=== PATIENT | male | born 1960 | race Caucasian/White ===

== ENCOUNTER 2019-11-11 08:21 | Inpatient (IN) | payer BC, SELFPAY ==
[2019-11-11] VITALS (11 sets, daily range): BP systolic 119–158; BP diastolic 81–122; PULSE 68–84; RESP 16–30; TEMP 36.4–36.9; O2SAT 93–98; BMI 21.9
--- NOTE | 2019-11-11 08:27 | XR_ITS ---
WS: [id number] CHEST XRAY TECHNIQUE: Portable chest. CLINICAL INFORMATION: dyspnea/cough COMPARISON: None. FINDINGS: Heart: Cardiomegaly. Mild pulmonary vascular congestion with interstitial edema. No significant pleur al fluid.. Lungs: No acute pulmonary infiltrates. No focal pneumonia. Pulmonary vascular congestion. Bones: Normal visualized bony structures. XR/XR chest 1V portable [id number] IMPRESSION: 1. Cardiomegaly with mild pulmonary vascular congestion and interstitial edema . 2. Correlation for CHF. 3. No focal pneumonia.
--- NOTE | 2019-11-11 08:27 | ECG_ITS ---
Measurements Intervals [place] Rate: 88 P: 68 MI: 213 QRS: -43 QRSD: 110 T: 105 QT: 411 QTc: 499 SINUS RHYTHM WITH FIRST DEGREE AV BLOCK RIGHT ATRIAL ENLARGEMENT [0.3mV P WAVE] LEFT ATRIAL ENLARGEMENT [-0.15mV P WAVE IN V1/V2] LEFT AXIS DEVIATION [QRS AXIS < -30] LEFT VENTRICULAR HYPERTROPHY AND ST-T CHANGE [VOLTAGE CRITERIA PLUS ST/T AB ABNORMALITY] Compared to ECG 05/16/2019 09:22:13 First degree AV block now present ST (T wave) deviation still present Electronically Signed On 11-11-2019 15:43:50 CDT by Jame Lyn M.D. [email or web address]
[2019-11-11 08:42] LABS: Basophils # 0.1 10^3/uL (0.0-0.1); Basophils % 0.5 %; Eosinophils # 0.2 10^3/uL (0.0-0.8); Eosinophils % 1.5 %; Hematocrit 49.8 % (42.0-52.0); Hemoglobin 16.1 g/dL (11.7-16.6); Lymphocytes # 1.6 10^3/uL (0.8-4.8); Lymphocytes % 10.8 %; Mean Corpuscular HGB Conc 32.3 g/dL (30.0-36.0); Mean Corpuscular Hemoglobin 28.8 pg (28.0-34.0); Mean Corpuscular Volume 89.1 fL (80-94); Mean Platelet Volume 10.9 fL (7.4-10.4); Monocytes # 0.8 10^3/uL (0.2-0.9); Monocytes % 5.3 %; Neutrophils # 11.7 10^3/uL (1.8-7.7); Neutrophils % 81.4 %; Nucleated Red Blood Cells % 0 %; Platelet Count 282 10^3/cmm (130-400); Red Blood Count 5.59 10^6/uL (4.1-5.3); Red Cell Distribution Width 14.5 % (12.1-15.1); White Blood Count 14.4 10^3/uL (4.0-10.0)
--- NOTE | 2019-11-11 08:53 | ED_ITS ---
HPI - Chest Pain General: Chief Complaint: Chest Pain Stated Complaint: CHEST PAIN Time Seen by Provider: 11/11/19 08:23 History of Present Illness: HPI narrative: 59-year-old male presents to the ER via EMS from home. He woke up with chest pain this morning radiating to his left arm. He denies any shortness of breath with it any nausea vomiting or diaphoresis he took 3 nitro that he had from previous prescription he states they are in date he did not get a headache however. He did not really notice any improvement but when EMS came they gave him 2 more nitro, he got minimal relief from those. He still is having some chest discomfort now. He denies any other recent illness denies any respiratory symptoms no fever sweats or chills. MD complaint: chest pain Onset (ago): hour(s) Timing of current episode: episodic Prior episodes: Yes (Not as intense) Onset: during rest Pain location: left chest Pain radiation: left arm and left shoulder Severity: moderate Quality: tightness Relieving factors: nothing Exacerbating factors: nothing Associated symptoms: Deny abdominal pain, diaphoresis, dyspnea, fever(s), nausea, syncope or vomiting Treatment prior to arrival: nitroglycerin and oxygen Review of Systems Const: Denies: fever(s) or diaphoresis ENMT: Denies: throat pain, ear or mastoid pain, nasal discharge or nasal congestion Card: Denies: syncope Resp: Denies: dyspnea GI: Denies: abdominal pain, nausea or vomiting : Denies: flank pain, dysuria, urinary frequency or urinary urgency Skin/Breast: Denies: rash or pruritus [facility] ED PFSH: Medical History Congestive heart failure 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 Mother No problems noted. Grandfather , Paternal grandfather, in his mid 50s CAD (coronary artery disease) Hypertension Diabetes Social History Smoking and tobacco status: current every day smoker cigarettes Packs smoked per day: 0.25 Years cigarettes smoked: 50 Number of cigarettes per day: 1-5 Alcohol intake: former Former alcohol use details: Previously would drink 1/5 of alcohol, whiskey, per day. Quit 6 years ago Substance/Drug Use: current Substance/Drug use frequency: few times a month Substance/Drug use type: Methamphetamine Other substance/drug use details: Reported Speed use Physical Exam Const: COMMON NORMALS: no acute distress GENERAL APPEARANCE: cooperative and comfortable ORIENTATION/CONSCIOUSNESS: Yes awake, Yes oriented to person, Yes oriented to place and Yes oriented to time HENMT: COMMON NORMALS: normocephalic, atraumatic, hearing grossly normal bilaterally, external ears normal, EAC's normal, TM's normal bilaterally, Normal nasal mucous membranes and turbinates present, moist oral mucous membranes and oropharynx normal HEAD & SCALP: normocephalic and atraumatic NOSE: Normal nasal mucous membranes and turbinates present EXTERNAL EAR: Yes external ears normal EXTERNAL AUDITORY CANAL: EAC's normal TYMPANIC MEMBRANE: TM's normal bilaterally Eye: COMMON NORMALS: Equal, round and reactive pupils present, EOMs intact bilaterally, conjunctivae normal and no scleral icterus CONJUNCTIVA: Yes conjunctivae normal PUPIL: Yes Equal, round and reactive pupils present Neck/C-Spine: COMMON NORMALS: full ROM, no lymphadenopathy, supple and no JVD Lymph: LYMPHATIC: no lymphadenopathy noted and no lymphedema noted Resp: COMMON NORMALS: normal respiratory effort, No retractions, No use of accessory muscles and clear to auscultation bilaterally AUSCULTATION: clear to auscultation bilaterally Cardio: COMMON NORMALS: no JVD, regular rate, regular rhythm and No murmurs present (Cardio) RATE: regular rate RHYTHM: regular rhythm GI: COMMON NORMALS: Soft to palpation and No hepatosplenomegaly present AUSCULTATION: Yes normoactive bowel sounds PALPATION: Yes Soft to palpation, No Tenderness to palpation present (GI), No Guarding due to palpation present (GI) and Yes No hepatosplenomegaly present Extremity: COMMON NORMALS: normal to inspection, capillary refill normal, no clubbing, cyanosis or edema, no calf tenderness and no pedal edema Neuro: SENSORIUM/ORIENTATION: Yes oriented to person, Yes oriented to place and Yes oriented to time Skin: COMMON NORMALS: no rashes or lesions noted GENERAL SKIN EXAM: no rashes or lesions noted Course Vital Signs: Vital signs: Vital Signs Temperature 97.8 F 11/11/19 15:06 Pulse Rate 69 11/11/19 15:06 Respiratory Rate 26 H 11/11/19 15:06 Blood Pressure 119/81 11/11/19 15:06 Pulse Oximetry 95 11/11/19 15:06 MDM - Chest Pain MDM Narrative: Medical decision making narrative: Patient has a delta of nearly 20. His chest discomfort is down to a 1 or 2. We will load him with Plavix and Lovenox admit for NSTEMI discussed with Dr. Gillespie she will be attending. Lab Data: Labs: Lab Results 11/11/19 11/11/19 11/11/19 Range/Units 07:45 07:45 07:45 WBC 14.4 H (4.0-10.0) 10^3/ uL RBC 5.59 H (4.1-5.3) 10^6/u L Hgb 16.1 (11.7-16.6) g/dL Hct 49.8 (42.0-52.0) % MCV 89.1 (80-94) fL MCH 28.8 (28.0-34.0) pg MCHC 32.3 (30.0-36.0) g/dL RDW 14.5 (12.1-15.1) % Plt Count 282 (130-400) 10^3/c mm MPV 10.9 H (7.4-10.4) fL Neut % (Auto) 81.4 % Lymph % (Auto) 10.8 % [place] % (Auto) 5.3 % Eos % (Auto) 1.5 % Baso % (Auto) 0.5 % Neut # (Auto) 11.7 H (1.8-7.7) 10^3/u L Lymph # (Auto) 1.6 (0.8-4.8) 10^3/u L [place] # (Auto) 0.8 (0.2-0.9) 10^3/u L Eos # (Auto) 0.2 (0.0-0.8) 10^3/u L Baso # (Auto) 0.1 (0.0-0.1) 10^3/u L Nucleated RBC % (a uto) 0 % Nucleated RBCs # 0.0 /100WBC Sodium 139 (136-145) mmol/L Potassium 4.9 (3.5-5.1) mmol/L Chloride 101 (98-107) mmol/L Carbon Dioxide 26 (22-29) mmol/L Anion Gap 16.9 (5-19) BUN 22 (8-23) mg/dL Creatinine 1.0 (0.7-1.2) mg/dL GFR Calculation 76.0 L (90-130) mL/min Glucose 145 H (65-115) mg/dL Calculated Osmolal ity 287 (285-295) mOsm/k g Calcium 9.8 (8.5-10.5) mg/dL Total Bilirubin 0.7 (0.15-1.2) mg/dL AST 15 (0-40) U/L ALT 15 (0-41) U/L Alkaline Phosphata se 93 (40-130) IU/L Troponin T Baselin e 60 H (0-15) ng/mL Troponin T 120 Min [place] (0-15) ng/mL Delta Troponin T (0-10) ABS# NT-Pro-B Natriuret Pep (0-125) pg/mL Total Protein 7.0 (6.6-8.7) g/dL Albumin 4.5 (3.5-5.2) g/dL Globulin 2.5 (1.3-4.6) g/dL Urine Color (Yellow) Urine Appearance (CLEAR) Urine pH (5-7) Ur Specific Gravit y (1.005-1.030) Urine Protein (Negative) Urine Glucose (UA) (Normal) Urine Ketones (Negative) Urine Blood (Negative) Urine Nitrate (Negative) Urine Bilirubin (NEGATIVE) Urine Urobilinogen (Negative) mg/dL Ur Leukocyte Saima ase (Negative) 11/11/19 11/11/19 11/11/19 Range/Units 07:45 09:40 09:41 WBC (4.0-10.0) 10^3/ uL RBC (4.1-5.3) 10^6/u L Hgb (11.7-16.6) g/dL Hct (42.0-52.0) % MCV (80-94) fL MCH (28.0-34.0) pg MCHC (30.0-36.0) g/dL RDW (12.1-15.1) % Plt Count (130-400) 10^3/c mm MPV (7.4-10.4) fL Neut % (Auto) % Lymph % (Auto) % [place] % (Auto) % Eos % (Auto) % Baso % (Auto) % Neut # (Auto) (1.8-7.7) 10^3/u L Lymph # (Auto) (0.8-4.8) 10^3/u L [place] # (Auto) (0.2-0.9) 10^3/u L Eos # (Auto) (0.0-0.8) 10^3/u L Baso # (Auto) (0.0-0.1) 10^3/u L Nucleated RBC % (a uto) % Nucleated RBCs # /100WBC Sodium (136-145) mmol/L Potassium (3.5-5.1) mmol/L Chloride (98-107) mmol/L Carbon Dioxide (22-29) mmol/L Anion Gap (5-19) BUN (8-23) mg/dL Creatinine (0.7-1.2) mg/dL GFR Calculation (90-130) mL/min Glucose (65-115) mg/dL Calculated Osmolal ity (285-295) mOsm/k g Calcium (8.5-10.5) mg/dL Total Bilirubin (0.15-1.2) mg/dL AST (0-40) U/L ALT (0-41) U/L Alkaline Phosphata se (40-130) IU/L Troponin T Baselin e (0-15) ng/mL Troponin T 120 Min [place] 78.63 H (0-15) ng/mL Delta Troponin T 18.63 H* (0-10) ABS# NT-Pro-B Natriuret Pep 86813 H (0-125) pg/mL Total Protein (6.6-8.7) g/dL Albumin (3.5-5.2) g/dL Globulin (1.3-4.6) g/dL Urine Color Yellow (Yellow) Urine Appearance Clear (CLEAR) Urine pH 5.0 (5-7) Ur Specific Gravit y 1.015 (1.005-1.030) Urine Protein Neg (Negative) Urine Glucose (UA) Norm (Normal) Urine Ketones Negative (Negative) Urine Blood Neg (Negative) Urine Nitrate Negative (Negative) Urine Bilirubin Neg (NEGATIVE) Urine Urobilinogen Norm (Negative) mg/dL Ur Leukocyte Saima ase Negative (Negative) Discharge Plan Discharge Patient Disposition: Admitted As Inpatient Admit Provider: Caprice Gillespie Clinical Impression: Non-ST elevation [place] (NSTEMI) Condition: Stable Discharge Date/Time: 11/11/19 11:59 Coding Level of Care Code ED Lawn Specialist for Chanag Fwd Exam Comprehensive
[2019-11-11] MEDS: morphine 4 mg/mL SDV 1 mL IVP (09:04)
[2019-11-11] MEDS: FUROsemide 10 mg/mL SDV 4mL 40 MG IVP (09:07)
[2019-11-11 09:10] LABS: Alanine Aminotransferase 15 U/L (0-41); Albumin Level 4.5 g/dL (3.5-5.2); Alkaline Phosphatase 93 IU/L (40-130); Anion Gap 16.9 (5-19); Aspartate Amino Transferase 15 U/L (0-40); Blood Urea Nitrogen 22 mg/dL (8-23); Calcium 9.8 mg/dL (8.5-10.5); Carbon Dioxide 26 mmol/L (22-29); Chloride 101 mmol/L (98-107); Globulin 2.5 g/dL (1.3-4.6); Glucose 145 mg/dL (65-115); Osmolality Calculated 287 mOsm/kg (285-295); Potassium 4.9 mmol/L (3.5-5.1); Sodium 139 mmol/L (136-145); Total Bilirubin 0.7 mg/dL (0.15-1.2)
[2019-11-11 09:12] LABS: Troponin(5th) Baseline 60 ng/mL (0-15)
[2019-11-11 10:04] LABS: Troponin 5 2HR 78.63 ng/mL (0-15)
[2019-11-11 10:17] LABS: Add Urine Microscopic? NO
[2019-11-11 10:24] LABS: Troponin 5 2HR Delta 18.63 ABS# (0-10)
--- NOTE | 2019-11-11 10:27 | ECG_ITS ---
Measurements Intervals [place] Rate: 80 P: 59 VA: 202 QRS: -38 QRSD: 110 T: 122 QT: 422 QTc: 487 SINUS RHYTHM WITH OCCASIONAL VENTRICULAR PREMATURE COMPLEXES LEFT ATRIAL ENLARGEMENT [-0.15mV P WAVE IN V1/V2] LEFT AXIS DEVIATION [QRS AXIS < -30] MODERATE INTRAVENTRICULAR CONDUCTION DELAY [105+ ms QRS DURATION, 80+ ms Q/S IN V1/V2, NO Q AND 60+ ms R IN I/aVL/V5/V6] LVH ST DEVIATION AND MODERATE T-WAVE ABNORMALITY, CONSIDER LATERAL ISCHEMIA [-0.1+ mV T WAVE IN I/aVL/V5/V6] Compared to ECG 05/16/2019 09:22:13 Ventricular premature complex(es) now present Intraventricular conduction delay now present T-wave abnormality now present Possible ischemia now present Electronically Signed On 11-11-2019 15:45:54 CDT by Jame Lyn M.D. [email or web address]
[2019-11-11 10:29] LABS: Bilirubin Urine Neg (NEGATIVE); Blood Urine Neg (Negative); Glucose Urine UA Norm (Normal); Ketones Urine Negative (Negative); Leukocyte Esterase Urine Negative (Negative); Nitrate Urine Negative (Negative); Protein Urine Neg (Negative); Specific Gravity, Urine 1.015 (1.005-1.030); Urine Appearance Clear (CLEAR); Urine Color Yellow (Yellow); Urobilinogen Urine Norm (Negative)
[2019-11-11] MEDS: clopidogrel 300 mg Tablet 600 MG PO (10:31)
[2019-11-11] MEDS: enoxaparin 80 mg/0.8 mL Syringe 70 MG SUBCUT (10:32)
[2019-11-11 10:44] LABS: NT Pro B Type Natriuretic Pept 10307 pg/mL (0-125)
--- NOTE | 2019-11-11 10:49 | P.HP_ITS ---
Providers/Chief Complaint Admitting Physician: Caprice Gillespie DO Chief Complaint: CHEST PAIN History of Present Illness Amador Dickson is a 59 year old male with a past medical history of congestive heart failure that presented to the emergency department today for chest pain. He stated that the pain woke him up at approximately 430 this morning. He stated that he was having pressure located in the center of his chest that radiated to his left arm. He stated that his left arm felt like it was cramping and he could not get the pain to loosen up. He took some nitroglycerin at home with no relief but did have relief with nitroglycerin that was given by EMS along with administration of Nitropaste. Patient reports having a history of congestive heart failure. He is followed by a lab support technician in [facility], Dr. Camacho. He reports that it is been about 1 year since he has been seen by his lab support technician. He does not have a primary care provider so has not been seen for a while. He states that he is on some medications, diuretics, however he does not take them regularly. He stated that in the past week he has taken them 4 days out of 7. He states that he was lifting some heavy cans yesterday when he had some discomfort in the center of his shoulder blades, however this pain feels different than that onset of pain that occurred yesterday after heavy lifting. He states that he recently came up to visit his mother and is just traveling through this area. He states that he has a history of congestive heart failure and is on diuretics, denies any history of coronary artery disease and denies having a cardiac cath in the past. Patient does report that he has cut back on his smoking, is not on any home oxygen, denies any fevers or chills, denies any cough or sputum production. Denies any exposure to anyone with CO VID-19. Patient does report some illicit drug use approximately 1 month ago and intermittently. Reports using speed. He does report being told that he had cardiomyopathy in the past, uncertain if it was diagnosed as an nonischemic cardiomyopathy. Patient was seen and evaluated in the emergency department noted to have concern for chest pain with concern for non-ST elevation OR and he was admitted for further evaluation and treatment. Due to delta troponin greater than 10 he was treated for non-ST elevation OR giving loading dose of Plavix as well as Lovenox. Review of Systems Const: Denies: fever(s) or chills Eyes: Denies: change in vision ENMT: Denies: nasal congestion Card: Reports: chest pain; Denies: palpitations or edema Resp: Denies: dyspnea, productive cough or hemoptysis GI: Denies: abdominal pain, nausea, vomiting, diarrhea, constipation, hematochezia or melena : Denies: dysuria or hematuria Musc: Denies: extremity pain or muscle cramps Skin/Breast: Denies: rash or new lesions Neuro: Denies: headache(s) or dizziness Psych: Denies: anxiety or depression Endo: Denies: polyuria or hot flashes Terrence/Lymph: Denies: easy bruising or easy bleeding Medications/Allergies Home Medications Medication Instructions Recorded Confirmed Last Taken Type aspirin 325 mg PO DAILY 11/11/19 11/11/19 11/11/19 History 405 mg carvedilol 3.125 mg PO BID 11/11/19 11/11/19 11/10/19 History furosemide See Rx Instructions .ROUTE .COMPLEX 11/11/19 11/11/19 11/10/19 History lisinopril 10 mg PO DAILY 11/11/19 11/11/19 11/10/19 History nitroglycerin 0.4 mg SUBLINGUAL PRN 11/11/19 11/11/19 11/11/19 History sertraline 25 mg PO DAILY 11/11/19 11/11/19 Unknown History spironolactone 25 mg PO QAM 11/11/19 11/11/19 11/10/19 History Allergies Allergy/AdvReac Type Severity Reaction Status Date / Time No Known Allergies Allergy Verified 11/11/19 08:29 PFSH Acute PFSH: Medical History (Updated 11/11/19 @ 10:55 by Caprice Gillespie DO) Congestive heart failure 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 Mother No problems noted. Grandfather , Paternal grandfather, in his mid 50s CAD (coronary artery disease) Hypertension Diabetes Social History (Updated 11/11/19 @ 10:57 by Caprice Gillespie DO) Smoking and tobacco status: current every day smoker cigarettes Packs smoked per day: 0.25 Years cigarettes smoked: 50 Number of cigarettes per day: 1-5 Alcohol intake: former Former alcohol use details: Previously would drink 1/5 of alcohol, whiskey, per day. Quit 6 years ago Substance/Drug Use: current Substance/Drug use frequency: few times a month Substance/Drug use type: Methamphetamine Other substance/drug use details: Reported Speed use Vitals/I&O/Wt Last Vital Signs Temp 98.4 F 11/11/19 08:27 Pulse 81 11/11/19 10:32 Resp 19 H 11/11/19 10:32 BP 144/112 11/11/19 10:32 Pulse Ox 97 11/11/19 10:32 Weight last 48 hrs Weight 63.503 kg Physical Exam Const: COMMON NORMALS: patient oriented x3 and alert GENERAL APPEARANCE: cooperative ORIENTATION/CONSCIOUSNESS: Yes awake, Yes oriented to person, Yes oriented to place and Yes oriented to time HENMT: COMMON NORMALS: normocephalic and atraumatic HEAD & SCALP: normocephalic and atraumatic Eye: COMMON NORMALS: Equal, round and reactive pupils present PUPIL: Yes Equal, round and reactive pupils present Neck/C-Spine: COMMON NORMALS: supple GENERAL: Yes normal visual inspection Resp: COMMON NORMALS: normal respiratory effort and clear to auscultation bilaterally EFFORT & INSPECTION: Yes able to speak in complete sentences A USCULTATION: crackles (Faint bilaterally), no rhonchi and no wheezes Cardio: COMMON NORMALS: regular rate, regular rhythm and No murmurs present (Cardio) RATE: regular rate RHYTHM: regular rhythm GI: COMMON NORMALS: Soft to palpation and non-tender INSPECTION: No abdominal distension AUSCULTATION: Yes normoactive bowel sounds PALPATION: Yes Soft to palpation : COMMON NORMALS: Yes no CVA tenderness BLADDER/KIDNEY EXAM: Yes no CVA tenderness Back/Pelvis: COMMON NORMALS: no CVA tenderness Extremity: COMMON NORMALS: no clubbing, cyanosis or edema and no calf tenderness Neuro: COMMON NORMALS: patient oriented x3, CN's II-XII intact bilaterally, moves all extremities and no focal motor deficits SENSORIUM/ORIENTATION: Yes alert, Yes oriented to person, Yes oriented to place and Yes oriented to time SPEECH: speech normal Psych: COMMON NORMALS: mental status grossly normal and cooperative Skin: COMMON NORMALS: no rashes or lesions noted GENERAL SKIN EXAM: no rashes or lesions noted Data : 11/11/19 07:45 11/11/19 07:45 CXR: I personally reviewed and interpreted this imaging study as follows: Radiologist's impression: IMPRESSION: 1. Cardiomegaly with mild pulmonary vascular congestion and interstitial edema. 2. Correlation for CHF. 3. No focal pneumonia. A&P Assessment and plan (1) Non-ST elevation [place] (NSTEMI): Patient presented with chest pain that is improved with nitroglycerin paste Delta troponin of 18.6. We will follow-up with 6-hour troponin. Continue with treatment dose Lovenox and loading dose of Plavix. Continue on patient's home Coreg, will start statin and check lipid panel We will discuss in consult with cardiology. Patient reports significantly diminished LVEF of what he thinks is around 13%. No prior records at our facility, will order record request from Dr. Camacho, lab support technician in [facility]. Patient denies ever having a cardiac cath or angiogram in the past. With patient's reported history of illicit drug use this could be related to CHF exacerbation and nonischemic cardiomyopathy, however without patient having angiogram in the past would likely benefit from further evaluation, will follow up with cardiology recommendations. Status: Acute (2) Congestive heart failure: Patient reports history of CHF, uncertain but he believes that he was told his last ejection fraction was around 13%, however he does not recall any discussion with the lab support technician about a LifeVest or ICD. We will attempt to obtain records from Dr. Camacho in [facility]. Patient reports heavy alcohol use in the past and also reports use of speed in the past and intermittently at present day. Will further evaluate with echocardiogram. Telemetry monitoring, serial EKG and troponin as above Patient does have mild fluid overload, will continue with IV Lasix. Continue on home Coreg 3.125 mg twice daily, lisinopril 10 mg daily along with Aldactone. With patient's history of illicit substance use question if patient may have a history of nonischemic cardiomyopathy, will obtain records, however patient reports no history of cardiac cath and as above may benefit from further evaluation with imaging, will follow up with cardiology recommendations. Status: Acute Additional A&P Information Tobacco abuse: Strongly encourage cessation Illicit substance use: Strongly encourage cessation History of CVA with chronic right-sided vision changes, continue on aspirin and will start on statin DVT prophylaxis: Treatment dose Lovenox due to concern as above Diet: Cardiac, n.p.o. at midnight CODE STATUS: Do Not Resuscitate/DNI, allow natural . This was discussed with patient and he reported that he would not want to have any sort of resuscitative measures. Attestations Medical Necessity Statement*: Hospitalization due to non-ST elevation OR with concern for congestive heart failure exacerbation. Expected stay greater than 2 midnights Coding Level of Care Code Acute Centralized Traffic Control Operator for Naun Fwd Exam Comprehensive Diagnoses Non-ST elevation [place] (NSTEMI) I21.4 Congestive heart failure I50.9
[2019-11-11] MEDS: carvedilol 3.125 mg Tablet PO ×2 (13:06→22:08)
[2019-11-11 15:06] LABS: Troponin 5 6HR 1054 ng/mL (0-15); Troponin 5 6HR Delta 994 ng/L (0-12)
--- NOTE | 2019-11-11 19:12 | PM.CONSULT ---
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 Initial cardiac markers were elevated he was admitted for rule out and ending up in ruling in with troponin bump to 900. Currently is chest pain-free. According to the patient for the past few months he has been experiencing off and on chest pressure radiating to left arm upon exertion. He also admits to worsening of shortness of breath and fatigue. Currently denies PND orthopnea. He was slightly volume overload for which she was given diuretics. He was loaded with Plavix and given anticoagulation in the form of Lovenox. He is being ruled out for COVID as well.. Review of Systems Const: Denies: fever(s), chills or diaphoresis Eyes: Denies: change in vision ENMT: Denies: throat pain, ear or mastoid pain, nasal discharge or nasal congestion Card: Reports: chest pain; Denies: palpitations, edema or syncope Resp: Denies: dyspnea, productive cough or hemoptysis GI: Denies: abdominal pain, nausea, vomiting, diarrhea, constipation, hematochezia or melena : Denies: flank pain, dysuria, urinary frequency, urinary urgency or hematuria Musc: Denies: extremity pain or muscle cramps Skin/Breast: Denies: rash, pruritus or new lesions Neuro: Denies: headache(s) or dizziness Psych: Denies: anxiety or depression Endo: Denies: polyuria or hot flashes Terrence/Lymph: Denies: easy bruising or easy bleeding Meds/Allergies Home Medications and Allergies Home Medications Medication Instructions Recorded Confirmed Last Taken Type aspirin 325 mg PO DAILY 11/11/19 11/11/19 11/11/19 History 405 mg carvedilol 3.125 mg PO BID 11/11/19 11/11/19 11/10/19 History furosemide See Rx Instructions .ROUTE .COMPLEX 11/11/19 11/11/19 11/10/19 History lisinopril 10 mg PO DAILY 11/11/19 11/11/19 11/10/19 History nitroglycerin 0.4 mg SUBLINGUAL PRN 11/11/19 11/11/19 11/11/19 History sertraline 25 mg PO DAILY 11/11/19 11/11/19 Unknown History spironolactone 25 mg PO QAM 11/11/19 11/11/19 11/10/19 History Allergies Allergy/AdvReac Type Severity Reaction Status Date / Time No Known Allergies Allergy Verified 11/11/19 08:29 Current Medications Current Medications Generic Name Dose Route Start Last Admin Trade Name Freq PRN Reason Stop Dose Admin Carvedilol 3.125 mg 11/11/19 12:22 11/11/19 13:06 Coreg PO 3.125 mg BID LAURA Administration PFSH Acute PFSH: Medical History Congestive heart failure 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 Mother No problems noted. Grandfather , Paternal grandfather, in his mid 50s CAD (coronary artery disease) Hypertension Diabetes Social History Smoking and tobacco status: current every day smoker cigarettes Packs smoked per day: 0.25 Years cigarettes smoked: 50 Number of cigarettes per day: 1-5 Alcohol intake: former Former alcohol use details: Previously would drink 1/5 of alcohol, whiskey, per day. Quit 6 years ago Substance/Drug Use: current Substance/Drug use frequency: few times a month Substance/Drug use type: Methamphetamine Other substance/drug use details: Reported Speed use Vitals/I&O/Wt Last Vital Signs Temp 97.8 F 11/11/19 15:06 Pulse 69 11/11/19 15:06 Resp 26 H 11/11/19 15:06 BP 119/81 11/11/19 15:06 Pulse Ox 95 11/11/19 15:06 11/11/19 11/11/19 11/11/19 06:59 14:59 22:59 Intake Total 360 / 360 240 / 600 Balance 360 / 360 240 / 600 Weight last 48 hrs Weight 140 lb Physical Exam Narrative: EXAM NARRATIVE: GENERAL: Patient is alert, awake and oriented x3. NECK: No jugular vein distension. HEENT: No cyanosis. No icterus. No pallor. HEART: Regular S1 and S2. No murmur, rub or gallop. LUNGS: Clear to auscultate bilaterally. ABDOMEN: Soft, nontender and nondistended. Positive bowel sounds. No guarding, rebound or tenderness. CENTRAL NERVOUS SYSTEM: Grossly nonfocal. EXTREMITIES: Lower extremities without edema bilaterally. Pulses Data Labs: Other Labs: SINUS RHYTHM WITH OCCASIONAL VENTRICULAR PREMATURE COMPLEXES LEFT ATRIAL ENLARGEMENT [-0.15mV P WAVE IN V1/V2] LEFT AXIS DEVIATION [QRS AXIS < -30] MODERATE INTRAVENTRICULAR CONDUCTION DELAY [105+ ms QRS DURATION, 80+ ms Q/S IN V1/V2, NO Q AND 60+ ms R IN I/aVL/V5/V6] LVH ST DEVIATION AND MODERATE T-WAVE ABNORMALITY, CONSIDER LATERAL ISCHEMIA [-0.1+ mV T WAVE IN I/aVL/V5/V6] Compared to ECG 05/16/2019 09:22:13 Ventricular premature complex(es) now present Intraventricular conduction delay now present T-wave abnormality now present Possible ischemia now present A&P Assessment and plan (1) Congestive heart failure: Patient has been given diuretics appear to be stable. Will obtain echocardiogram which has already been ordered by Dr. Gillespie. Further plan will be advised as per progress of the patient. Status: Acute (2) Non-ST elevation [place] (NSTEMI): Patient has been ruled in for acute coronary syndrome. He was treated as per ACS protocol. Continue aspirin statin beta-hema loaded with Plavix and anticoagulation. We will proceed with coronary angiogram at 830 in a.m. in the morning. Further plan will be advised as per progress of the patient. 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
[2019-11-11] MEDS: atorvastatin 40 mg Tablet PO (20:28)
[2019-11-11] MEDS: enoxaparin 60 mg/0.6 mL Syringe SUBCUT (22:08)
[2019-11-11 23:01] LABS: Thyroid Stimulating Hormone 1.45 uIU/mL (0.27-4.20)
[2019-11-12] VITALS (14 sets, daily range): BP systolic 110–132; BP diastolic 72–89; PULSE 56–98; RESP 17–34; TEMP 36.5–37.1; O2SAT 95–96; BMI 21.9
[2019-11-12 03:47] LABS: Basophils # 0.1 10^3/uL (0.0-0.1); Basophils % 0.5 %; Eosinophils # 0.3 10^3/uL (0.0-0.8); Eosinophils % 2.3 %; Hematocrit 44.8 % (42.0-52.0); Hemoglobin 14.7 g/dL (11.7-16.6); Lymphocytes # 2.2 10^3/uL (0.8-4.8); Lymphocytes % 18.5 %; Mean Corpuscular HGB Conc 32.8 g/dL (30.0-36.0); Mean Corpuscular Hemoglobin 28.7 pg (28.0-34.0); Mean Corpuscular Volume 87.3 fL (80-94); Mean Platelet Volume 10.6 fL (7.4-10.4); Neutrophils # 8.3 10^3/uL (1.8-7.7); Neutrophils % 70.3 %; Nucleated Red Blood Cells % 0 %; Platelet Count 243 10^3/cmm (130-400); Red Blood Count 5.13 10^6/uL (4.1-5.3); Red Cell Distribution Width 14.4 % (12.1-15.1); White Blood Count 11.8 10^3/uL (4.0-10.0)
[2019-11-12 04:06] LABS: Anion Gap 14.9 (5-19); Blood Urea Nitrogen 28 mg/dL (8-23); Calcium 9.4 mg/dL (8.5-10.5); Carbon Dioxide 24 mmol/L (22-29); Chloride 99 mmol/L (98-107); Chol HDL Ratio 4.84 mg/dL (1.0-5.00); Cholesterol 208 mg/dL (0-200); Glucose 117 mg/dL (65-115); HDL Cholesterol 43 mg/dL (60-100); LDL Cholesterol Calculated 146 mg/dL (50-129); Osmolality Calculated 276 mOsm/kg (285-295); Potassium 3.9 mmol/L (3.5-5.1); Sodium 134 mmol/L (136-145); Triglycerides 94 mg/dL (0-150)
[2019-11-12] MEDS: spironolactone 25 mg Tablet PO (04:59)
--- NOTE | 2019-11-12 06:00 | USCV_ITS ---
Randolph Amador Age: 59 Gender: M : 1960 Exam Date: 11/12/2019 14:44 Ordering Phys: Caprice Gillespie DO Technologist: Tierra Morataya Exam Location: [facility] [place] Indication: NSTEMI BP: 103 / 75 HR: 63 Rhythm: Sinus Technical Quality: GOOD MEASUREMENTS (Male / Female) Normal Values 2D ECHO LV Diastolic Diameter PLAX 7.1 cm 4.2 - 5.9 / 3.9 - 5.3 cm LV Systolic Diameter PLAX 6.3 cm LV Chamber Size 5.3 cm IVS Diastolic Thickness 1.5 cm 0.6 - 1.0 / 0.6 - 0.9 cm IVS Systolic Thickness 1.5 cm LVPW Diastolic Thickness 1.5 cm 0.6 - 1.0 / 0.6 - 0.9 cm LVPW Systolic Thickness 2.1 cm RV Chamber Size 4.2 cm LVOT Diameter 2.0 cm LV Ejection Fraction 2D Teich 24.5 % LV Ejection Fraction MOD 2C 22.9 % LV Ejection Fraction 2C AL 23.6 % LA Diameter 4.6 cm LA Width 3.4 cm LA Height 4.6 cm RA Width 4.0 cm RA Height 4.1 cm Aorta at Sinotubular Diameter 3.1 cm M-MODE LV Diastolic Diameter MM 8.0 cm 4.2 - 5.9 / 3.9 - 5.3 cm LV Systolic Diameter MM 6.5 cm LV Ejection Fraction MM Teich 36.9 % IVS Diastolic Thickness MM 1.0 cm 0.6 - 1.0 / 0.6 - 0.9 cm IVS Systolic Thickness MM 1.3 cm LVPW Diastolic Thickness MM 1.5 cm 0.6 - 1.0 / 0.6 - 0.9 cm LVPW Systolic Thickness MM 1.7 cm RV Diastolic Diameter MM 1.5 cm Aortic Annulus Diameter 2.5 cm LA Ao Ratio MM 1.5 MV E Point Septal Separation 2.8 cm DOPPLER AV Peak Velocity 113.0 cm/s LVOT Peak Velocity 67.0 cm/s AV Area Cont Eq vti 2.2 cm squared AV Area Cont Eq pk 1.9 cm squared MV Area PHT 7.9 cm squared Mitral E to A Ratio 1.2 MV E' Velocity 6.0 cm/s Mitral E to MV E' Ratio 18.4 Mitral E to LV E' Lateral Ratio 14.2 Mitral E to LV E' Septal Ratio 27.1 TR Peak Velocity 302.8 cm/s TR Peak Gradient 36.7 mmHg TR Mean Velocity 185.9 cm/s TR Mean Gradient 17.1 mmHg TR Velocity Time Integral 108.4 cm TV Peak E Velocity 60.0 cm/s Right Atrial Pressure 5.0 mmHg Pulmonary Artery Systolic Pressu 41.7 mmHg PV Peak Velocity 46.0 cm/s RV Acceleration Time 0.1 s RV Ejection Time 0.3 s RV AcT/ET 0.4 FINDINGS Left Ventricle Moderately increased left ventricular cavity size. Severely decreased left ventricular systolic function. Global left ventricular hypokinesis. Left ventricular ejection fraction is estimated at 36 %. There appeared to be circumscribed 0.59 cm squared mass attached to the distal lateral/apical wall of the left ventricle suggestive of questionable thrombus versus subendocardial to. Further exploration with contrast advised.Grade II/IV diastolic dysfunction, moderately elevated filling pressures. Right Ventricle The right ventricle is normal in size and function. Moderate pulmonary hypertension, RVSP 41.7 mmHg. Right Atrium The right atrium is normal in size. Left Atrium The left atrium is normal in size. Mitral Valve Moderately thickened mitral valve. No mitral valve stenosis. Mild mitral valve regurgitation. Aortic Valve Structurally normal aortic valve without significant sclerosis or stenosis. There is no aortic regurgitation. Tricuspid Valve Moderate tricuspid valve regurgitation. Pulmonic Valve Structurally normal pulmonic valve without significant stenosis. There is no pulmonic regurgitation. Pericardium Normal pericardium without effusion. Aorta Normal ascending aorta dimension. CONCLUSIONS 1-Moderately increased left ventricular cavity size. Severely decreased left ventricular systolic function. Global left ventricular hypokinesis. Left ventricular ejection fraction is estimated at 36 %. There appeared to be circumscribed 0.59 cm squared mass attached to the distal lateral/apical wall of the left ventricle suggestive of questionable thrombus versus subendocardial to. Further exploration with contrast advised.Grade II/IV diastolic dysfunction, moderately elevated filling pressures. 2-Moderately thickened mitral valve. No mitral valve stenosis. Mild mitral valve regurgitation. 3-Moderate tricuspid valve regurgitation. 4-The right ventricle is normal in size and function. Moderate pulmonary hypertension, RVSP 41.7 mmHg. 5-Right atrial pressure is around 5 mm of mercury. 6-There are no prior echocardiogram studies to compare. Fletcher Latham MD (Electronically Signed) Final Date: 12 Nov 2019 18:17 S
[2019-11-12 07:16] LABS: Coronavirus Lab Test PTC NOT DETECTED
--- NOTE | 2019-11-12 08:11 | PC.NURSE ---
Per Dr. Latham hold aspirin & lovenox this morning. Patient to go to assistant laboratory director at 10am.
[2019-11-12] MEDS: lisinopril 10 mg Tablet PO (09:15)
[2019-11-12] MEDS: diphenhydrAMINE 50 mg Capsule PO (09:15)
[2019-11-12] MEDS: carvedilol 3.125 mg Tablet PO ×2 (09:15→17:19)
--- NOTE | 2019-11-12 09:16 | PM.PN ---
Subjective Subjective: Interval history: Patient resting in bed at time of exam this morning. He reported that he slept well overnight, no continued chest pain. Patient did have nonsustained ventricular tachycardia at 530 yesterday. Asymptomatic eating supper at the time. r Vitals/I&O/Wt Last Vital Signs Temp 97.7 F 11/12/19 07:36 Pulse 98 11/12/19 09:08 Resp 19 H 11/12/19 07:36 BP 131/84 11/12/19 07:36 Pulse Ox 95 11/12/19 09:08 11/11/19 11/12/19 11/12/19 22:59 06:59 14:59 Intake Total 240 / 600 240 / 840 Output Total 200 / 200 Balance 40 / 400 240 / 640 Weight last 48 hrs Weight 63.503 kg Weight 63.503 kg Physical Exam Const: COMMON NORMALS: patient oriented x3 and alert GENERAL APPEARANCE: cooperative ORIENTATION/CONSCIOUSNESS: Yes awake, Yes oriented to person, Yes oriented to place and Yes oriented to time HENMT: COMMON NORMALS: normocephalic and atraumatic HEAD & SCALP: normocephalic and atraumatic Eye: COMMON NORMALS: Equal, round and reactive pupils present PUPIL: Yes Equal, round and reactive pupils present Neck/C-Spine: COMMON NORMALS: supple GENERAL: Yes normal visual inspection Resp: COMMON NORMALS: normal respiratory effort and clear to auscultation bilaterally EFFORT & INSPECTION: Yes able to speak in complete sentences AUSCULTATION: clear to auscultation bilaterally, no rhonchi and no wheezes OTHER: Lungs clear to auscultation, crackles resolved Cardio: COMMON NORMALS: regular rate, regular rhythm and No murmurs present (Cardio) RATE: regular rate RHYTHM: regular rhythm GI: COMMON NORMALS: Soft to palpation and non-tender INSPECTION: No abdominal distension AUSCULTATION: Yes normoactive bowel sounds PALPATION: Yes Soft to palpation Extremity: COMMON NORMALS: no clubbing, cyanosis or edema and no calf tenderness Neuro: COMMON NORMALS: patient oriented x3, CN's II-XII intact bilaterally, moves all extremities and no focal motor deficits SENSORIUM/ORIENTATION: Yes alert, Yes oriented to person, Yes oriented to place and Yes oriented to time SPEECH: speech normal Psych: COMMON NORMALS: mental status grossly normal and cooperative Data : 11/12/19 03:15 11/12/19 03:15 A&P Assessment and plan (1) Non-ST elevation [place] (NSTEMI): Non-ST elevation [place] with delta troponin greater than 900 Cardiology, Dr. Latham consulted. Plan for cardiac cath today Patient is on treatment dose Lovenox, received loading dose of Plavix Started on statin, continue on Coreg and aspirin Status: Acute (2) Congestive heart failure: Records received from Dr. Camacho in [facility] It appears that in 2016 patient had an LVEF of 13%, this had improved in 2017. Patient denies having cardiac cath in the past. We will proceed as above Continue on Coreg, aspirin, lisinopril, Lasix, Aldactone Appreciate cardiology recommendations Mild fluid overload on admission, now improved. Will transition to oral Lasix 40 mg daily Status: Acute Additional A&P Information Tobacco abuse: Strongly encourage cessation Illicit substance use: Strongly encourage cessation History of CVA with chronic right-sided vision changes, continue on aspirin and will start on statin DVT prophylaxis: Treatment dose Lovenox due to concern as above Diet: N.p.o. CODE STATUS: Do Not Resuscitate/DNI, allow natural . This was discussed with patient and he reported that he would not want to have any sort of resuscitative measures. Attestations Medical Necessity Statement*: Patient requires further hospitalization due to non-ST elevation [place] Coding Level of Care Code Acute Salicylic Acid Blender for [facility] Diagnoses Non-ST elevation [place] (NSTEMI) I21.4 Congestive heart failure I50.9
[2019-11-12] MEDS: sodium chloride 0.9% 1,000 ML 50 ML IV (09:19)
--- NOTE | 2019-11-12 10:00 | XACV_ITS ---
Exam Room: [facility] Ht: 170 cm Wt: 64 kg BSA: 1.73 m2 Gender: Male : 1960 Any Known Allergies: No known allergies Exam Priority: Routine Procedure(s): Procedure Description: Diagnostic procedure Procedure Description: PCI procedure Procedure Description: Drug Eluting Coronary Stent Procedure Description: Coronary Angiography Procedure Description: Pressure Wire Diagnostic Cath Status: Elective Diagnostic Findings LM has 0% stenosis. CX has 0% stenosis. RCA has 0% stenosis. Mid Left Anterior Descending Coronary Artery: Moderate 70% stenosis, GOLDIE: 3 flow. Coronary angiography shows right dominance. PCI Status: Urgent PCI Indication: NSTE - ACS Interventional Findings Mid Left Anterior Descending Coronary Artery: 70% stenosis treated with MDT R ALLAN 4.0X18 BENNY. 0% residual stenosis, GOLDIE: 3 flow. Successful intervention. Conclusions There is moderate coronary artery disease with one vessel disease. Mid Left Anterior Descending Coronary Artery was successfully treated with Drug Eluting Stent. 59-year-old male past medical history significant for combined ischemic and nonischemic cardiomyopathy with severely dis-functioning of LV presented with chest pain off and on for last 24 hours. His troponin generation 5 peaked at 900. After carefully diuresing patient was taken to the Diving Supervisor. He was found to have mid eccentric 70% borderline lesion. IFR was performed which was 0.88 therefore we decided because of the fact patient has worsening of LV dysfunction, patient has event of acute coronary syndrome and now IFR of 0.88 which is suggesting that mid LAD lesion is significant we proceeded with mid LAD stent placement. Recommendations 1-Return to inpatient for close monitoring and routine cath care 2-Risk factor modification for secondary prevention 3-Statin and aspirin 81 mg life--long, if tolerated 4-Continue Plavix 75mg p.o. daily for at least one year. We will assess at the end of one year again to continue if further or not 5-Continue optimal medical management 6-Follow up with Dr. Latham in four weeks and your primary care in 10 days . Diagnostic RX Recommendation: PCI w/o planned CABG Pressures Phase:Rest AO : 114 mmHg / 101 mmHg ( 108 mmHg ) @ 5:37:00 AM 118 mmHg / 106 mmHg ( 112 mmHg ) @ 5:38:00 AM 117 mmHg / 103 mmHg ( 111 mmHg ) @ 5:39:00 AM Clinical Evaluation EBL: 5mL-10mL Procedural Details Procedure Consent Obtained. Current Diagnosis : Chest Pain. Pre-Procedure Time Out. Identified patient by full name and date of as verbalized by the patient/guarantor. Does the consent match the physician's order: Yes. Accurate & Complete Informed Consent: Yes. Inpatient/Outpatient History & Physical on Chart: Yes. If H&P is completed, is and addenduem needed: No; If yes, is the addendum complete: N/A. Visualize and Verify Site with Patient/Guarantor: N/A. Relevant Radiology Images available: Yes. Pre-op teaching completed and patient verbalized understanding. The risks, benefits, and alternatives of sedation and/or procedure were discussed by physician. The patient agrees to continue. Procedure started. [facility] Clinical Fraility Score: 3: Managing Well. Diving Supervisor Indications: Worsening Angina. Chest Pain Symptom Assessment: Typical Angina Symptoms. Correct patient, site and procedure confirmed by cath team. Current diagnosis: Chest Pain. PERRLA. Strong, equal hand research and development director bilaterally. Lungs clear x 5 lobes. IV Site on Arrival: 18 gauge in the left anticubital. IV Fluids: 0.9% NaCl at KVO. 0 mL infused prior to mineral ore processing labourer. Pre Procedural Pulses: right radial was 2+. Oxygen started at 2liters/min via nasal canula. right groin was prepped with chloroprep then draped in the usual sterile fashion. right radial was prepped with chloroprep then draped in the usual sterile fashion. Physician notified. Baseline sample Acquired. HR: 104 BPM. Patient's family unavailable. Physician arrived. Physician scrubbed in. Immediate Pre-Procedure Time Out. Correct Patient: Yes; Correct Procedure: Yes; Correct Site: Yes; Correct Patient Position: Yes; Correct Supplies: Yes; Dried Flammable Prep: Yes; Blood Products Available: N/A;. Lidocaine 1% infiltrated to the right radial. Arterial access obtained. A 5 jamaican TIG catheter in over wire. Multiple views taken of left coronary artery. Catheter redirected to the RCA. Multiple views taken of right coronary artery. Catheter removed over the exchange wire. 6 jamaican JL 4 guide catheter was inserted over the wire. FFR guidewire was advanced through the guide catheter to lesion in the mid LAD. An FFR value of 0.88 was obtained for a lesion located at Mid LAD. Inflation Number : 1 Russell Cody ALLAN 4.0X18 BENNY -Lot Number# [id number] EXP: 04/22/2021 was prepped and advanced across the Mid LAD. The stent was deployed at 12 JORDI for 0:30 seconds. Stent balloon and wire out. Guide catheter out. ACT drawn. Results 214 seconds. Therapeutic limits - pre-heparin administration 90-150 seconds and monitoring heparin during a vascular procedure >250 seconds. Physician scrubbed out. TR band placed. Hemostasis obtained. A TR Band was successful obtaining hemostatsis at the Right Radial artery insertion site. Post Procedure: Pulses reassessed and unchanged. PERRLA. Strong, equal hand research and development director bilaterally. No VTE prophylaxis required. Total IV fluids: 75 mL. Contrast type used: Omnipaque 300 mg/mL, 150 mL bottle. PCI Indication: NSTE. Post-op diagnosis: Stent to LAD. Complications: None. Estimated blood loss: 5mL-10mL. Procedure completed. Medication's Wasted: Lidocaine 1% = 18 mL. Medication's Wasted: Other = Fentanyl 25mg Versed 1 mg. Medication's Wasted: Heparin = 2000 mL. Medication's Wasted: Nitro = 49.8 mg. Medication's Wasted: Other = Adenosine 71 mg. Patient transferred by wheelchair to 1st floor. Vital chart was stopped. Site: Right Radial artery Sheath Size: 6 Fr Hemostasis Method: TR Band Hemostasis Success: Successful Procedure Medications Start: 10:21 AM Stop: 10:21 AM Medication: Versed Amount: 1 mg Route: I.V. Start: 10:21 AM Stop: 10:21 AM Medication: Fentanyl Amount: 50 mcg Route: I.V. Start: 10:31 AM Stop: 10:31 AM Medication: Nitrogylcerin Amount: 200 mcg Route: I.A. Start: 10:34 AM Stop: 10:34 AM Medication: Heparin Amount: 5000 units Route: I.V. Start: 10:58 AM Stop: 10:58 AM Medication: Heparin Amount: 3000 units Route: I.V. Start: 11:03 AM Stop: 11:03 AM Medication: Fentanyl Amount: 25 mcg Route: I.V. Start: 11:10 AM Stop: 11:10 AM Medication: Heparin Amount: 1000 units Route: I.V. I, the attending physician, have reviewed and verified all procedure medications. Yes, all medications given per verbal order History/Risk Factors Hypertension: Yes Dyslipidemia: Yes Peripheral Arterial Disease (PAD): No Myocardial Infarction (AR): No Obesity: No Renal Disease: No Tobacco Use: Current/Recent(w/in 1 year) Prior Interventions PCI: No CABG: No Valve Surgery: No Report Signatures Finalized by:Fletcher Latham MD on 11/25/2019 5:23:21 PM
--- NOTE | 2019-11-12 11:14 | PC.CHAP ---
Pastoral Care Encounter/Spiritual Assessment Type of Contact [] Declined truck engine assembler visit [] Patient/Family/Request visit [] Outpatient visit [] Follow-up visit [] Physician referral [] Code/Alert [x] Routine visit [] Staff referral [] Actively dying [] Patient sleeping [] Family support [] [] Out of room [] Palliative care [] [] Receiving care in room [] Pre-surgical visit [] Trauma [] Long length of stay [] ICU visit [] Other: Relational/Emotional Strength x[] Patient feels connected with others/family/visitors/staff [] Distress [] Loneliness/isolation [] Abandonment Spirituality of Patient [x] Person of Marii [] Attends Zoroastrianism of their Marii x[] Believes in Prayer [x] Reads Bible or Sikhism materials [] There are Spiritual issues to be addressed Rehabilitation Services Aide Interventions [x] Prayer [x] Active listening [x] Non-anxious presence [x] Spiritual/emotional support [] Crisis/trauma care [x] Spiritual counseling [] Bereavement support [] Provided bereavement packet [] Provided Bible/devotional materials [] Provided toy/stuffed animal, coloring book to patient or family member [] Provided Communion [] Anointing/[place] [] Salvation [x] Completed spiritual assessment [] Other: Impact on Illness or Injury [] Angry [] Fearful [] Anxious [] Often cries [] Exhaustion [] Unable to work [] Unable to attend jehovah's witness [] Unable to walk/stand [] Unable to read [] Unable to drive [] Unable to eat/drink [] Unable to sleep [] Unable to be with family [] Patient intubated [x] Other: n/a Summary Time spent with patient 20 minutes
--- NOTE | 2019-11-12 14:30 | PC.NURSE ---
TR band off. dressing to site. no hematoma.
--- NOTE | 2019-11-12 19:28 | PM.PN ---
Subjective Subjective: Interval history: Patient underwent coronary angiogram found to have mid LAD eccentric 70% stenosis by IFR was significant treated with single drug-eluting stent. Vitals/I&O/Wt Last Vital Signs Temp 97.8 F 11/12/19 12:00 Pulse 70 11/12/19 17:34 Resp 20 H 11/12/19 17:34 BP 119/76 11/12/19 17:34 Pulse Ox 96 11/12/19 12:00 11/12/19 11/12/19 11/12/19 06:59 14:59 22:59 Intake Total 240 / 840 660 / 660 220 / 880 Output Total 300 / 300 Balance 240 / 640 660 / 660 -80 / 580 Weight last 48 hrs Weight 140 lb Weight 140 lb Physical Exam Narrative: EXAM NARRATIVE: GENERAL: Patient is alert, awake and oriented x3. NECK: No jugular vein distension. HEENT: No cyanosis. No icterus. No pallor. HEART: Regular S1 and S2. No murmur, rub or gallop. LUNGS: Clear to auscultate bilaterally. ABDOMEN: Soft, nontender and nondistended. Positive bowel sounds. No guarding, rebound or tenderness. CENTRAL NERVOUS SYSTEM: Grossly nonfocal. EXTREMITIES: Lower extremities without edema bilaterally. Pulses Data : 11/12/19 03:15 11/12/19 03:15 A&P Assessment and plan (1) Congestive heart failure: Patient has been given diuretics appear to be stable. Will obtain echocardiogram which has already been ordered by Dr. Gillespie. Further plan will be advised as per progress of the patient. Status: Acute (2) Non-ST elevation [place] (NSTEMI): Patient has been ruled in for acute coronary syndrome. He was treated as per ACS protocol. Continue aspirin statin beta-hema loaded with Plavix and anticoagulation. We will proceed with coronary angiogram at 830 in a.m. in the morning. Further plan will be advised as per progress of the patient. Patient underwent angiogram of the coronaries. He was found to have 70% eccentric mid LAD lesion by IFR it was significant, patient troponin peaked at 900 by generation 5. Since patient has non-ST elevation IL with severe LV dysfunction and because of the fact IFR of this eccentric lesion was less than 0.88 we proceeded with placement of single drug-eluting stent. Excellent angiographic result with GOLDIE-3 flow was restored. Status: Acute Attestations Medical Necessity Statement*: Patient require continuation hospitalization for above defined care. Coding Level of Care Code Established Pt Acute Resource Program Teacher for Chg Fwd Patient Type Established History Expanded Problem Focused Exam Expanded Problem Focused Medical Decision Making Moderate Complexity Diagnoses Congestive heart failure I50.9 Non-ST elevation [place] (NSTEMI) I21.4
[2019-11-12] MEDS: enoxaparin 60 mg/0.6 mL Syringe SUBCUT (20:42)
[2019-11-12] MEDS: atorvastatin 40 mg Tablet PO (20:42)
[2019-11-13] VITALS: BP 116/84; PULSE 67; RESP 24; TEMP 36.6; O2SAT 95
[2019-11-13 04:00] VITALS: BP 111/79; PULSE 70; RESP 19; TEMP 36.5; O2SAT 96
[2019-11-13 04:45] LABS: Basophils # 0.1 10^3/uL (0.0-0.1); Basophils % 0.7 %; Eosinophils # 0.3 10^3/uL (0.0-0.8); Eosinophils % 2.6 %; Hematocrit 44.9 % (42.0-52.0); Hemoglobin 14.8 g/dL (11.7-16.6); Lymphocytes # 2.4 10^3/uL (0.8-4.8); Lymphocytes % 23.1 %; Mean Corpuscular Volume 87.9 fL (80-94); Mean Platelet Volume 10.9 fL (7.4-10.4); Monocytes % 9.2 %; Neutrophils # 6.6 10^3/uL (1.8-7.7); Nucleated Red Blood Cells % 0 %; Platelet Count 238 10^3/cmm (130-400); Red Blood Count 5.11 10^6/uL (4.1-5.3); Red Cell Distribution Width 14.3 % (12.1-15.1); White Blood Count 10.3 10^3/uL (4.0-10.0)
[2019-11-13 05:13] LABS: Anion Gap 15.3 (5-19); Blood Urea Nitrogen 24 mg/dL (8-23); Calcium 8.9 mg/dL (8.5-10.5); Carbon Dioxide 24 mmol/L (22-29); Chloride 103 mmol/L (98-107); Glucose 103 mg/dL (65-115); Osmolality Calculated 283 mOsm/kg (285-295); Potassium 4.3 mmol/L (3.5-5.1); Sodium 138 mmol/L (136-145)
[2019-11-13] MEDS: spironolactone 25 mg Tablet PO (05:18)
[2019-11-13 08:00] VITALS: BP 121/85; PULSE 66; RESP 22; O2SAT 93
[2019-11-13] MEDS: carvedilol 3.125 mg Tablet PO (08:20)
[2019-11-13] MEDS: clopidogrel 75 mg Tablet PO (08:20)
[2019-11-13] MEDS: aspirin 325 mg Tablet PO (08:20)
[2019-11-13] MEDS: lisinopril 10 mg Tablet PO (08:20)
[2019-11-13] MEDS: FUROsemide 40 mg Tablet PO (08:28)
--- NOTE | 2019-11-13 09:38 | USCV_ITS ---
Randolph Amador Age: 59 Gender: M : 1960 Exam Date: 11/13/2019 10:42 Ordering Phys: Fletcher Latham MD ([email or web address]) Technologist: Ishan Lozano Exam Location: [facility] Indication: LVB THROMBUS BP: / HR: 84 Rhythm: Sinus Technical Quality: Adequate MEASUREMENTS (Male / Female) Normal Values 2D ECHO LV Ejection Fraction MOD 2C 31.3 % LV Ejection Fraction 2C AL 30.6 % FINDINGS Left Ventricle Right Ventricle Right Atrium Left Atrium Mitral Valve Aortic Valve Tricuspid Valve Pulmonic Valve Pericardium Aorta CONCLUSIONS This is a limited echo to rule out LV thrombus 1-Severely depressed LV function with moderate left ventricle dilatation. Estimated ejection fraction of left ventricle is 30 to 35%, no thrombus visualized in the left ventricle 2-There is no pericardial effusion. 3-No significant change from the prior echo dated 11/12/2019 Fletcher Latham MD (Electronically Signed) Final Date: 13 Nov 2019 14:58 S
[2019-11-13] MEDS: perflutren protein-a microsphr 0.22 mg/mL SDV 3 mL IV (10:51)
[2019-11-13 12:14] VITALS: BP 120/91; PULSE 67; RESP 21
--- NOTE | 2019-11-13 14:14 | PM.PN ---
Subjective Subjective: Interval history: Status post drug-eluting stent to mid LAD. Awaiting limited echo to rule out LV thrombus Vitals/I&O/Wt Last Vital Signs Temp 97.7 F 11/13/19 04:00 Pulse 67 11/13/19 12:14 Resp 21 H 11/13/19 12:14 BP 120/91 11/13/19 12:14 Pulse Ox 93 11/13/19 08:00 11/12/19 11/13/19 11/13/19 22:59 06:59 14:59 Intake Total 220 / 880 720 / 720 Output Total 300 / 300 Balance -80 / 580 720 / 720 Weight last 48 hrs Weight 160 lb 6.4 oz Weight 140 lb Physical Exam Narrative: EXAM NARRATIVE: GENERAL: Patient is alert, awake and oriented x3. NECK: No jugular vein distension. HEENT: No cyanosis. No icterus. No pallor. HEART: Regular S1 and S2. No murmur, rub or gallop. LUNGS: Clear to auscultate bilaterally. ABDOMEN: Soft, nontender and nondistended. Positive bowel sounds. No guarding, rebound or tenderness. CENTRAL NERVOUS SYSTEM: Grossly nonfocal. EXTREMITIES: Lower extremities without edema bilaterally. Pulses Data : 11/13/19 03:54 11/13/19 03:54 A&P Assessment and plan (1) Congestive heart failure: Well compensated continue p.o. Lasix. Continue carvedilol aspirin and spironolactone. Status: Acute (2) Non-ST elevation [place] (NSTEMI): Patient has been ruled in for acute coronary syndrome. He was treated as per ACS protocol. Continue aspirin statin beta-hema loaded with Plavix and anticoagulation. We will proceed with coronary angiogram at 830 in a.m. in the morning. Further plan will be advised as per progress of the patient. Patient underwent angiogram of the coronaries. He was found to have 70% eccentric mid LAD lesion by IFR it was significant, patient troponin peaked at 900 by generation 5. Since patient has non-ST elevation [place] with severe LV dysfunction and because of the fact IFR of this eccentric lesion was less than 0.88 we proceeded with placement of single drug-eluting stent. Excellent angiographic result with GOLDIE-3 flow was restored. Status post drug-eluting stent to mid LAD patient is feeling much better breathing better denies any chest pain. He thinks he is ready to go home. I spent time to explain the necessity of continuing Plavix and aspirin and rest of the medicine for heart failure. He would like to follow-up with us. He is awaiting limited echo result to rule out LV thrombus. Once ruled out he may will be discharged Status: Acute Attestations Medical Necessity Statement*: Awaiting echo result once ruled out for LV thrombus he will be discharged today. 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
--- NOTE | 2019-11-13 15:32 | PM.DCS ---
Discharge Providers Date of Admission: 11/11/19 10:15 Date of Discharge: November 13, 2019 Attending Provider at Admission: Caprice Gillespie DO Attending Provider at Discharge: Caprice Gillespie DO Diagnoses at Discharge Discharge Diagnosis (1) Congestive heart failure: Status: Acute (2) Non-ST elevation FL (NSTEMI): Status: Acute Reason for Visit Reason for Visit: Reason For Visit: CHEST PAIN Hospital Course Hospital Course: Patient was seen and evaluated in the emergency department due to concern for chest pain. He was admitted for further evaluation and treatment due to concern for non-ST elevation FL. He was started on treatment dose anticoagulation and cardiology was consulted due to patient's presentation. His pain was relieved with nitroglycerin and he was kept n.p.o. for coronary angiogram. He did have a delta troponin of greater than 900. Patient was tested for CO VID-19, this returned negative. Patient was taken to the cardiac Parimutuel Clerk and noted to have lesion in the LAD, this was stented and patient did well in the postoperative setting. On date of discharge patient was awake and alert and denied any concerns, no chest pain or shortness of breath and stated that he was feeling much better. Echocardiogram was performed due to patient having a history of congestive heart failure, echocardiogram showed circumscribed mass attached to the distal lateral and apical wall of the left ventricle, due to this echocardiogram with contrast was performed. No evidence of any thrombus formation therefore patient was not started on any further anticoagulation. Physical Exam Const: COMMON NORMALS: patient oriented x3 and alert GENERAL APPEARANCE: cooperative ORIENTATION/CONSCIOUSNESS: Yes awake, Yes oriented to person, Yes oriented to place and Yes oriented to time HENMT: COMMON NORMALS: normocephalic and atraumatic HEAD & SCALP: normocephalic and atraumatic Eye: COMMON NORMALS: Equal, round and reactive pupils present PUPIL: Yes Equal, round and reactive pupils present Neck/C-Spine: COMMON NORMALS: supple GENERAL: Yes normal visual inspection Resp: COMMON NORMALS: normal respiratory effort and clear to auscultation bilaterally EFFORT & INSPECTION: Yes able to speak in complete sentences AUSCULTATION: clear to auscultation bilaterally, no rhonchi and no wheezes OTHER: Lungs clear to auscultation Cardio: COMMON NORMALS: regular rate, regular rhythm and No murmurs present (Cardio) RATE: regular rate RHYTHM: regular rhythm GI: COMMON NORMALS: Soft to palpation and non-tender INSPECTION: No abdominal distension AUSCULTATION: Yes normoactive bowel sounds PALPATION: Yes Soft to palpation : COMMON NORMALS: Yes no CVA tenderness BLADDER/KIDNEY EXAM: Yes no CVA tenderness Back/Pelvis: COMMON NORMALS: no CVA tenderness Extremity: COMMON NORMALS: no clubbing, cyanosis or edema and no calf tenderness Neuro: COMMON NORMALS: patient oriented x3, CN's II-XII intact bilaterally, moves all extremities and no focal motor deficits SENSORIUM/ORIENTATION: Yes alert, Yes oriented to person, Yes oriented to place and Yes oriented to time SPEECH: speech normal Psych: COMMON NORMALS: mental status grossly normal and cooperative Skin: COMMON NORMALS: no rashes or lesions noted GENERAL SKIN EXAM: no rashes or lesions noted Discharge Data Data Completed and Pending: Completed Studies During Hospitalization Category Date Time Status XR chest 1V ajit ble 19071 Stat Exams 11/11/19 08:27 Completed CV echo complete* [id number] Routine Ultrasound 11/12/19 06:00 Completed CV echo lmt wo/w contras [id number] Rout ine Ultrasound 11/13/19 09:38 Taken Pending at discharge Category Date Time Status CLOTH WINDER request for service Routin e Exams 11/12/19 10:00 Taken US/CV paperwork R outine Ultrasound 11/13/19 12:01 Taken Labs from last 24 hours 11/13/19 11/13/19 03:54 03:54 WBC 10.3 H RBC 5.11 Hgb 14.8 Hct 44.9 MCV 87.9 MCH 29.0 MCHC 33.0 RDW 14.3 Plt Count 238 MPV 10.9 H Neut % (Auto) 64.0 Lymph % (Auto) 23.1 [place] % (Auto) 9.2 Eos % (Auto) 2.6 Baso % (Auto) 0.7 Neut # (Auto) 6.6 Lymph # (Auto) 2.4 [place] # (Auto) 1.0 H Eos # (Auto) 0.3 Baso # (Auto) 0.1 Nucleated RBC % (a uto) 0 Nucleated RBCs # 0.0 Sodium 138 Potassium 4.3 Chloride 103 Carbon Dioxide 24 Anion Gap 15.3 BUN 24 H Creatinine 1.0 GFR Calculation 76.0 L Glucose 103 Calculated Osmolal ity 283 L Calcium 8.9 Vitals: Last Vital Signs Temp 97.7 F 11/13/19 04:00 Pulse 67 11/13/19 12:14 Resp 21 H 11/13/19 12:14 BP 120/91 11/13/19 12:14 Pulse Ox 93 11/13/19 08:00 Discharge Plan Discharge Patient Disposition: Home, Self-Care Condition: Stable Prescriptions: New atorvastatin 40 mg Tablet 40 mg PO BEDTIME Qty: 30 RF: 3 clopidogrel 75 mg Tablet 75 mg PO DAILY Qty: 90 RF: 4 furosemide 40 mg tablet 40 mg PO DAILY Qty: 90 RF: 4 potassium chloride 10 mEq capsule, extended release 10 meq PO DAILY Qty: 60 RF: 4 Continued spironolactone 25 mg tablet 25 mg PO QAM RF: 0 carvedilol 3.125 mg tablet 3.125 mg PO BID RF: 0 lisinopril 10 mg tablet 10 mg PO DAILY RF: 0 nitroglycerin 0.4 mg tablet, sublingual 0.4 mg sublingual PRN RF: 0 sertraline 25 mg tablet 25 mg PO DAILY RF: 0 Changed aspirin 325 mg Tablet 81 mg PO DAILY Qty: 90 RF: 4 Discontinued furosemide 40 mg tablet See Rx Instructions .ROUTE .COMPLEX RF: 0 Discharge Orders: Discharge Order (Routine); Ordered 11/13/19 Ordered By: Fletcher Latham Referrals: Fletcher Latham MD [Physician] - ([facility] will be calling you by the afternoon on SaturdayNovember 16 to schedual and appointment with PATRICIA Gill for a site check and with Dr. shelton MD in one month. If you have not heard from them by the morning of SaturdayNovember 17 please call them to schedual an appointment ) Lorraine Torres DO [Physician] - 11/30/19 1:30 pm Discharge Diet: Cardiac and Low Salt Discharge Activity: Increase activity as tolerated Patient Instructions: Furosemide (By mouth), Potassium Chloride (By mouth), Clopidogrel (By mouth), Myocardial Infarction (DC), Left Heart Catheterization (DC), Coronary Angioplasty (DC), Chest Pain Stoplight, Post Angiogram Home Care Instructions Activity Restrictions/Additional Instructions: No lifting of more than gallon of milk for next 2 days. Follow-up with Dr. Latham in 4 weeks. Follow-up with Maira Polo in 7 days Continue with aspirin, Plavix, statin, Lasix, Coreg, Aldactone Strongly encouraged tobacco cessation Follow-up with primary care provider as scheduled Lifting restrictions per cardiology Strongly encourage cessation from substance use Call your physician or present to the ED with any acute illness or concern Discharge Attestations Time Spent in Discharge Care*: greater than 30 min Quality Metrics Clinical Quality Measures During this hospital stay, did patient experience: AMI Clinical Trial Participant: No Contraindication to aspirin (AMI): Aspirin given Contraindication to statin: Statin prescribed Contraindication to PCI: PCI performed Coding Level of Care Code Acute Anesthesia Attending for g Fwd Diagnoses Congestive heart failure I50.9 Non-ST elevation FL (NSTEMI) I21.4
[2019-11-13 15:37] VITALS: BP 120/91; PULSE 67; RESP 21; O2SAT 96
== END 2019-11-13 16:54 | disposition home or self-care (01) | DRG 247 ==
LOC: ER 11:06 → CSU 11:08
PROVIDERS: Internal Medicine Cardiovascular Disease; Admitting Provider Family Medicine; Emergency Provider Family Medicine; Visit Provider Family Medicine
PROC: 027034Z Dilation of Coronary Artery, One Artery with Drug-eluting Intraluminal Device, Percutaneous Approach (ICD-10-PCS; principal; 2019-11-12 10:00)
PROC: 027034Z Dilation of Coronary Artery, One Artery with Drug-eluting Intraluminal Device, Percutaneous Approach (ICD-10-PCS; 2019-11-12 10:00)
DX: I21.4 Non-ST elevation (NSTEMI) myocardial infarction (principal); I42.8 Other cardiomyopathies; Z20.828 Contact with and (suspected) exposure to other viral communicable diseases; Z66 Do not resuscitate; Z79.82 Long term (current) use of aspirin; I50.9 Heart failure, unspecified; F17.210 Nicotine dependence, cigarettes, uncomplicated; I11.0 Hypertensive heart disease with heart failure; I69.398 Other sequelae of cerebral infarction
CPT/HCPCS: 12345; 36415; 71045; 80048; 80053; 80061; 81003; 83880; 84443; 84484; 85025; 85347; 87635; 93005; 93306; 93454; 93571; 96372; 96375; 99283; C1769; C1874; C1887; C1894; C8924; C9600; J0153; J1644; J1650; J1940; J2001; J2250; J2270; J3010; J3490; J7030; Q0163; Q9956; Q9967

== ENCOUNTER → 2019-11-30 10:05 | Outpatient (BNVA) | payer BC, SELFPAY | PROVIDERS: Visit Provider Nurse Practitioner Family | DX: I25.10 Atherosclerotic heart disease of native coronary artery without angina pectoris (principal); F17.210 Nicotine dependence, cigarettes, uncomplicated | CPT/HCPCS: 80048 ==

== ENCOUNTER 2020-07-21 15:40 | Inpatient (IN) | payer MEDICAID, SELFPAY ==
[2020-07-21] VITALS (41 sets, daily range): BP systolic 106–148; BP diastolic 85–114; PULSE 63–118; RESP 12–39; TEMP 36.9; O2SAT 84–98; BMI 23.6
--- NOTE | 2020-07-21 15:54 | XR_ITS ---
WS: [id number] CHEST XRAY TECHNIQUE: Portable chest. CLINICAL INFORMATION: chest pain/dyspnea COMPARISON: November 11, 2019 FINDINGS: Heart: Cardiomegaly. Consider pericardial effusion. Lungs: Moderate chronic emphysematous changes. Mild interstitial thickening throughout both lungs. No significant pleural fluid. No focal pneumonia. Bones: Normal visualized bony structures. XR/XR chest 1V portable [id number] IMPRESSION: 1. Cardiomegaly. Consider pericardial effusion. 2. Moderate chronic emphysematous changes. 3. Interstitial thickening throughout both lungs. Recommend correlation for in terstitial pneumonia versus edema. No pleural fluid.
--- NOTE | 2020-07-21 15:54 | ECG_ITS ---
[facility] Test Date: 2020-07-21 Pat Name: Amador Dickson Department: Room: Gender: Male Emergency Medcl Emt: : 1960 Requested By: Luis Alfredo Order Number: [id number] Emily MD: Doug Stewart M.D. Measurements Intervals [place] Rate: 120 P: 48 OR: 177 QRS: -43 QRSD: 114 T: 109 QT: 330 QTc: 466 Interpretive Statements SINUS TACHYCARDIA LEFT AXIS DEVIATION [QRS AXIS < -30] LEFT VENTRICULAR HYPERTROPHY AND ST-T CHANGE [VOLTAGE CRITERIA PLUS ST/T ABNORMALITY] Stable biatrial enlargement Compared to ECG 11/11/2019 10:37:00 Sinus rhythm no longer present First degree AV block no longer present ST (T wave) deviation still present Electronically Signed On 07-21-2020 18:05:59 MINI BAR ATTENDANT by Doug Stewart M.D. [id number]
--- NOTE | 2020-07-21 16:13 | ED_ITS ---
HPI - Chest Pain General: Chief Complaint: Shortness of Breath/Dyspnea Stated Complaint: SOB W/CP Time Seen by Provider: 07/21/20 15:43 History of Present Illness: HPI narrative: The patient is a 59-year-old male with past medical history HTN, coronary artery disease, and myocardial infarction/CHF with stenting procedure. He is also a lifelong smoker. He comes to the ER complaining of a few days of increased left-sided chest pain and shortness of breath. It is worse when he lays down. He has taken nitroglycerin a couple times at home which did not help with his chest pain but the pain does feel similar to when he had the myocardial infarction. EMS gave 324 aspirin prior to arrival. MD complaint: chest pain Pertinent past history: coronary artery disease and prior [place] Onset (ago): day(s) (3) Timing of current episode: constant Onset: during rest, during exertion and awoke with symptoms Pain location: left chest Pain radiation: none Severity: moderate Quality: similar to prior [place] Relieving factors: nothing and rest Exacerbating factors: exertion Associated symptoms: Reports no associated symptoms; Deny abdominal pain, dyspnea or palpitations Treatment prior to arrival: aspirin Review of Systems General: Reports: 10 or more systems reviewed and unremarkable except in HPI and below Const: Denies: fatigue Eyes: Denies: change in vision, blurry vision or eye redness ENMT: Denies: throat pain, swelling of lips/tongue, ear or mastoid pain or nasal congestion Card: Reports: chest pain; Denies: palpitations, irregular heart rhythm, edema, dyspnea on exertion or orthopnea Resp: Denies: dyspnea, productive cough or non-productive cough GI: Denies: abdominal pain, diarrhea or GI cramping : Denies: flank pain, urinary frequency or urinary urgency Musc: Denies: neck pain, back pain, extremity pain, joint pain, joint redness, limited range of motion or muscle weakness Skin/Breast: Denies: rash, pruritus, erythema, skin pain or skin tenderness Neuro: Denies: headache(s), numbness in extremities, weakness in extremities, sensory changes, difficulty walking, dizziness, confusion or Slurred speech present Psych: Denies: anxiety or depression Endo: Denies: polyuria All/Imm: Denies: urticaria, throat swelling or tongue swelling PFSH ED PFSH: Medical History (Updated 07/21/20 @ 20:29 by Luis Alfredo MD) Congestive heart failure Coronary artery disease 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 Mother No problems noted. Grandfather , Paternal grandfather, in his mid 50s CAD (coronary artery disease) Hypertension Diabetes Social History Smoking and tobacco status: current every day smoker cigarettes Packs smoked per day: 0.25 Years cigarettes smoked: 50 Alcohol intake: former Former alcohol use details: Previously would drink 1/5 of alcohol, whiskey, per day. Quit 6 years ago Physical Exam Const: COMMON NORMALS: no acute distress, average body habitus, patient oriented x3, no limitations, healthy appearing, alert and well nourished GENERAL APPEARANCE: cooperative, comfortable, well kempt and well developed ORIENTATION/CONSCIOUSNESS: Yes awake, Yes oriented to person, Yes oriented to place and Yes oriented to time HENMT: COMMON NORMALS: normocephalic, external ears normal and Normal external nose present HEAD & SCALP: normal to inspection and normocephalic NOSE: Normal external nose present EXTERNAL EAR: Yes external ears normal MOUTH: Normal oral and palatal mucosa present THROAT: posterior oropharynx normal Eye: COMMON NORMALS: Equal, round and reactive pupils present and EOMs intact bilaterally GENERAL EYE: appearance normal, both eyes and all related structures PUPIL: Yes Equal, round and reactive pupils present Neck/C-Spine: COMMON NORMALS: full ROM, no lymphadenopathy, no meningeal signs and no JVD GENERAL: Yes normal visual inspection Lymph: LYMPHATIC: no lymphadenopathy noted Chest: COMMONS NORMALS: normal inspection of the chest and normal palpation of entire chest wall Resp: COMMON NORMALS: normal respiratory effort, No retractions, No use of accessory muscles, clear to auscultation bilaterally and percussion normal EFFORT & INSPECTION: Yes able to speak in complete sentences AUSCULTATION: clear to auscultation bilaterally PERCUSSION: percussion normal Cardio: COMMON NORMALS: no JVD, regular rate, regular rhythm, S1 normal heart sound present, S2 normal heart sound present and Peripheral pulses 2+ throughout RATE: regular rate RHYTHM: regular rhythm HEART SOUNDS: S1 normal heart sound present and S2 normal heart sound present PERIPHERAL PULSES: Peripheral pulses 2+ throughout GI: COMMON NORMALS: Normal to inspection, nondistended, normoactive bowel sounds present, Soft to palpation, non-tender and no masses INSPECTION: Yes normal to inspection PALPATION: Yes Soft to palpation : COMMON NORMALS: Yes no CVA tenderness BLADDER/KIDNEY EXAM: Yes no CVA tenderness Back/Pelvis: COMMON NORMALS: no CVA tenderness, thoracic and lumbar spine normal to inspection, no thoracic nor lumbar tenderness and thoraco-lumbar ROM normal Extremity: COMMON NORMALS: normal to inspection, full ROM, capillary refill normal, no joint enlargement and no pedal edema GENERAL: Yes normal exam except as noted Neuro: COMMON NORMALS: patient oriented x3, CN's II-XII intact bilaterally, moves all extremities, no focal motor deficits, no sensory deficits noted and gait normal SENSORIUM/ORIENTATION: Yes alert, Yes oriented to person, Yes oriented to place and Yes oriented to time MENINGEAL SIGNS: Yes no meningeal signs Psych: COMMON NORMALS: mental status grossly normal, Normal thought process present, cooperative, normal affect and speech normal APPEARANCE: Yes well kempt ATTITUDE: Yes calm SPEECH: Yes normal speech THOUGHT PROCESS: Normal thought process present Skin: COMMON NORMALS: no rashes or lesions noted GENERAL SKIN EXAM: no rashes or lesions noted Course Vital Signs: Vital signs: Vital Signs Pulse Rate 114 H 07/21/20 20:00 Respiratory Rate 28 H 07/21/20 20:00 Blood Pressure 139/100 07/21/20 20:00 Pulse Oximetry 97 07/21/20 20:00 MDM - Chest Pain MDM Narrative: Medical decision making narrative: CT shows small right lower lobe subsegmental pulmonary embolism. He was started on Lovenox subcutaneously. Also and more likely the reason for his shortness of breath is his elevated BN P indicating he is in a CHF exacerbation. He admits to being noncompliant with his diuretics. He was given 40 of IV Lasix and discussed with Dr. Moore who accepts for inpatient care. Lab Data: Labs: Lab Results 07/21/20 07/21/20 07/21/20 Range/Units 11:28 16:34 16:34 WBC 13.9 H (4.0-10.0) 10^3/ uL RBC 5.11 (4.1-5.3) 10^6/u L Hgb 15.2 (11.7-16.6) g/dL Hct 45.5 (42.0-52.0) % MCV 89.0 (80-94) fL MCH 29.7 (28.0-34.0) pg MCHC 33.4 (30.0-36.0) g/dL RDW 13.1 (12.1-15.1) % Plt Count 290 (130-400) 10^3/c mm MPV 10.6 H (7.4-10.4) fL Neut % (Auto) 70.3 % Lymph % (Auto) 20.8 % [place] % (Auto) 5.8 % Eos % (Auto) 1.7 % Baso % (Auto) 0.9 % Neut # (Auto) 9.76 H (1.8-7.7) 10^3/u L Lymph # (Auto) 2.9 (0.8-4.8) 10^3/u L [place] # (Auto) 0.8 (0.2-0.9) 10^3/u L Eos # (Auto) 0.2 (0.0-0.8) 10^3/u L Baso # (Auto) 0.1 (0.0-0.1) 10^3/u L Nucleated RBC % (a uto) 0 % Nucleated RBCs # 0.0 /100WBC D-Dimer 0.54 (0-0.59) ug/mIFE U Sodium (136-145) mmol/L Potassium (3.5-5.1) mmol/L Chloride (98-107) mmol/L Carbon Dioxide (22-29) mmol/L Anion Gap (5-19) BUN (8-23) mg/dL Creatinine (0.7-1.2) mg/dL GFR Calculation (90-130) mL/min Glucose (65-115) mg/dL Calculated Osmolal ity (285-295) mOsm/k g Calcium (8.5-10.5) mg/dL Total Bilirubin (0.15-1.2) mg/dL AST (0-40) U/L ALT (0-41) U/L Alkaline Phosphata se (40-130) IU/L Troponin T Baselin e (0-15) ng/L Troponin T 120 Min john (0-15) ng/L Delta Troponin T (0-10) ABS# NT-Pro-B Natriuret Pep (0-125) pg/mL Total Protein (6.6-8.7) g/dL Albumin (3.5-5.2) g/dL Globulin (1.3-4.6) g/dL Urine Color Yellow (Yellow) Urine Appearance Clear (CLEAR) Urine pH 5.0 (5-7) Ur Specific Gravit y 1.025 (1.005-1.030) Urine Protein 1+ H (Negative) Urine Glucose (UA) Norm (Normal) Urine Ketones Negative (Negative) Urine Blood Neg (Negative) Urine Nitrate Negative (Negative) Urine Bilirubin Neg (Negative) Urine Urobilinogen Norm (Negative) mg/dL Ur Leukocyte Saima ase Negative (Negative) Urine RBC None (0-2) /hpf Urine WBC 0-4 H (0-5) /hpf Ur Squamous Epith Cells 0-4 H (0-5) /hpf Amorphous Sediment Not Reportable Urine Bacteria Trace (NONE) /hpf Urine Mucus Trace /hpf 07/21/20 07/21/20 07/21/20 Range/Units 16:34 16:34 18:35 WBC (4.0-10.0) 10^3/ uL RBC (4.1-5.3) 10^6/u L Hgb (11.7-16.6) g/dL Hct (42.0-52.0) % MCV (80-94) fL MCH (28.0-34.0) pg MCHC (30.0-36.0) g/dL RDW (12.1-15.1) % Plt Count (130-400) 10^3/c mm MPV (7.4-10.4) fL Neut % (Auto) % Lymph % (Auto) % [place] % (Auto) % Eos % (Auto) % Baso % (Auto) % Neut # (Auto) (1.8-7.7) 10^3/u L Lymph # (Auto) (0.8-4.8) 10^3/u L [place] # (Auto) (0.2-0.9) 10^3/u L Eos # (Auto) (0.0-0.8) 10^3/u L Baso # (Auto) (0.0-0.1) 10^3/u L Nucleated RBC % (a uto) % Nucleated RBCs # /100WBC D-Dimer (0-0.59) ug/mIFE U Sodium 139 (136-145) mmol/L Potassium 4.4 (3.5-5.1) mmol/L Chloride 105 (98-107) mmol/L Carbon Dioxide 18 L (22-29) mmol/L Anion Gap 20.4 H (5-19) BUN 37 H (8-23) mg/dL Creatinine 1.1 (0.7-1.2) mg/dL GFR Calculation 68.1 L (90-130) mL/min Glucose 101 (65-115) mg/dL Calculated Osmolal ity 297 H (285-295) mOsm/k g Calcium 9.4 (8.5-10.5) mg/dL Total Bilirubin 1.5 H (0.15-1.2) mg/dL AST 18 (0-40) U/L ALT 28 (0-41) U/L Alkaline Phosphata se 103 (40-130) IU/L Troponin T Baselin e 98 H (0-15) ng/L Troponin T 120 Min john 98.96 H (0-15) ng/L Delta Troponin T 0.96 (0-10) ABS# NT-Pro-B Natriuret Pep 98414 H (0-125) pg/mL Total Protein 6.7 (6.6-8.7) g/dL Albumin 4.0 (3.5-5.2) g/dL Globulin 2.7 (1.3-4.6) g/dL Urine Color (Yellow) Urine Appearance (CLEAR) Urine pH (5-7) Ur Specific Gravit y (1.005-1.030) Urine Protein (Negative) Urine Glucose (UA) (Normal) Urine Ketones (Negative) Urine Blood (Negative) Urine Nitrate (Negative) Urine Bilirubin (Negative) Urine Urobilinogen (Negative) mg/dL Ur Leukocyte Saima ase (Negative) Urine RBC (0-2) /hpf Urine WBC (0-5) /hpf Ur Squamous Epith Cells (0-5) /hpf Amorphous Sediment Urine Bacteria (NONE) /hpf Urine Mucus /hpf Discharge Plan Discharge Patient Disposition: Admitted As Inpatient Clinical Impression: Congestive heart failure, Pulmonary embolism Condition: Stable Coding Level of Care Code ED Estimating Engineer for Naun Benoit
[2020-07-21 16:53] LABS: Hematocrit 45.5 % (42.0-52.0); Hemoglobin 15.2 g/dL (11.7-16.6); Red Blood Count 5.11 10^6/uL (4.1-5.3); White Blood Count 13.9 10^3/uL (4.0-10.0)
[2020-07-21 16:54] LABS: Basophils # 0.1 10^3/uL (0.0-0.1); Basophils % 0.9 %; Eosinophils # 0.2 10^3/uL (0.0-0.8); Eosinophils % 1.7 %; Lymphocytes # 2.9 10^3/uL (0.8-4.8); Lymphocytes % 20.8 %; Mean Corpuscular HGB Conc 33.4 g/dL (30.0-36.0); Mean Corpuscular Hemoglobin 29.7 pg (28.0-34.0); Mean Platelet Volume 10.6 fL (7.4-10.4); Monocytes # 0.8 10^3/uL (0.2-0.9); Monocytes % 5.8 %; Neutrophils # 9.76 10^3/uL (1.8-7.7); Neutrophils % 70.3 %; Nucleated Red Blood Cells % 0 %; Platelet Count 290 10^3/cmm (130-400); Red Cell Distribution Width 13.1 % (12.1-15.1)
[2020-07-21 17:14] LABS: D Dimer 0.54 ug/mIFEU (0-0.59)
[2020-07-21 17:37] LABS: Troponin(5th) Baseline 98 ng/L (0-15)
[2020-07-21 17:38] LABS: Alanine Aminotransferase 28 U/L (0-41); Alkaline Phosphatase 103 IU/L (40-130); Anion Gap 20.4 (5-19); Aspartate Amino Transferase 18 U/L (0-40); Blood Urea Nitrogen 37 mg/dL (8-23); Calcium 9.4 mg/dL (8.5-10.5); Carbon Dioxide 18 mmol/L (22-29); Chloride 105 mmol/L (98-107); Globulin 2.7 g/dL (1.3-4.6); Glomerular Filtration Rate 68.1 mL/min (90-130); Glucose 101 mg/dL (65-115); NT Pro B Type Natriuretic Pept 12438 pg/mL (0-125); Osmolality Calculated 297 mOsm/kg (285-295); Potassium 4.4 mmol/L (3.5-5.1); Sodium 139 mmol/L (136-145); Total Bilirubin 1.5 mg/dL (0.15-1.2); Total Protein 6.7 g/dL (6.6-8.7)
--- NOTE | 2020-07-21 17:54 | ECG_ITS ---
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 Measurements Intervals [place] Rate: 112 P: 48 VA: 183 QRS: -43 QRSD: 114 T: 113 QT: 351 QTc: 480 Interpretive Statements SINUS TACHYCARDIA RIGHT ATRIAL ENLARGEMENT [0.3mV P WAVE] LEFT ATRIAL ENLARGEMENT [-0.15mV P WAVE IN V1/V2] LEFT AXIS DEVIATION [QRS AXIS < -30] LEFT VENTRICULAR HYPERTROPHY AND ST-T CHANGE [VOLTAGE CRITERIA PLUS ST/T ABNORMALITY] Compared to ECG 07/21/2020 15:47:15 No significant changes Electronically Signed On 07-22-2020 22:27:47 [facility] by Valeria Dill M.D. [id number]
--- NOTE | 2020-07-21 18:28 | PC.NURSE ---
EKG done at 1925 and shown to ER doctor
--- NOTE | 2020-07-21 18:30 | CTR_ITS ---
PROCEDURE INFORMATION: Exam: CT Angiography Chest With Contrast Exam date and time: 07/21/2020 6:40 PM Age: 59 years old Clinical indication: Shortness of breath; Chest pain; Patient HX: SOB, cp x 1 week; Additional info: R/O pe TECHNIQUE: Imaging protocol: Computed tomographic angiography of the chest with intravenous contrast. 3D rendering (Not supervised by radiologist): MIP and/or 3D reconstructed images were created by the technologist. Radiation optimization: All CT scans at this facility use at least one of these dose optimization techniques: automated exposure control; mA and/or kV adjustment per patient size (includes targeted exams where dose is matched to clinical indication); or iterative reconstruction. Contrast material: OMNI 350; Contrast volume: 93 ml; Contrast route: INTRAVENOUS (IV); COMPARISON: CR XR chest 1V portable [id number] 07/21/2020 3:56 PM RADIATION DOSE METRICS: Total DLP (mGy-cm): 582.28 FINDINGS: Pulmonary arteries: There is a small filling defect in a peripheral branch of the right lower lobe pulmonary artery seen on series 2, image 366 through 376, consistent with a single small pulmonary embolism. Aorta: Thoracic aorta is suboptimally opacified. No aortic aneurysm. Lungs: Extensive centrilobular and subpleural emphysema. No consolidative pulmonary infiltrate noted. Pleural spaces: No pleural effusion or pneumothorax noted. Heart: Severe cardiomegaly is noted. No specific enlargement of the right ventricle. No pericardial effusion. Lymph nodes: Unremarkable. No enlarged lymph nodes. Bones/joints: Degenerative spine changes are noted. Soft tissues: Unremarkable. CT/CT angio chest PE protcl [id number] IMPRESSION: 1. There is a small filling defect in a peripheral subsegmental branch of the right lower lobe pulmonary artery, seen on series 2, image 366 through 376, consistent with a single small pulmonary embolism. No additional emboli are noted. 2. Severe cardiomegaly is noted. 3. Extensive centrilobular and subpleural emphysema. No consolidative pulmonary infiltrate noted. Radiation Dose CTDIVOL = (mGy): DLP = 582.28 (mGy-cm)
[2020-07-21] MEDS: iohexol 350 mg/mL 100 mL Btl IV (18:59)
[2020-07-21 19:04] LABS: Troponin 5 2HR 98.96 ng/L (0-15); Troponin 5 2HR Delta 0.96 ABS# (0-10)
[2020-07-21] MEDS: FUROsemide 10 mg/mL SDV 4mL 40 MG IVP (19:35)
[2020-07-21 19:40] LABS: Add Urine Microscopic? YES; Bilirubin Urine Neg (Negative); Blood Urine Neg (Negative); Glucose Urine UA Norm (Normal); Ketones Urine Negative (Negative); Leukocyte Esterase Urine Negative (Negative); Nitrate Urine Negative (Negative); Protein Urine 1+ (Negative); Specific Gravity, Urine 1.025 (1.005-1.030); Urine Appearance Clear (CLEAR); Urine Color Yellow (Yellow); Urobilinogen Urine Norm (Negative)
[2020-07-21] MEDS: enoxaparin 80 mg/0.8 mL Syringe 70 MG SUBCUT (19:40)
[2020-07-21 19:47] LABS: Add Urine Culture? No; Bacteria Urine TRACE /hpf; Mucus Urine TRACE /hpf; Squamous Epithelial Cell Urine 0-4 /hpf (0-5); WBC Urine 0-4 /hpf (0-5)
[2020-07-21] MEDS: alum-mag-hydroxide-sime 30 mL UDC PO (20:16)
--- NOTE | 2020-07-21 20:31 | P.HP_ITS ---
Providers/Chief Complaint Chief Complaint: SOB W/CP History of Present Illness Amador Dickson is a 59 year old male has established history of coronary disease had non-ST segment elevation [place] and October 2019, he was taken to the cardiac Real Estate Underwriter, noted to have lesion in LAD which was stented, ischemic cardiomyopathy EF 30 to 35% presented today with chief complaint of shortness of breath and chest pain. Patient is stating that he did not take his medications regularly for last 1 week, his symptoms started about 7 to 10 days ago with shortness of breath. He has not taken his Lasix regularly, he has gained weight, he feels bloated. Endorsing orthopnea PND and exertional shortness of breath. Sometimes with exertion he does experience substernal chest pain which she describing as pressure-like sensation which would last a few seconds and gets better with rest. He has been smoking 1 to 2 cigarettes a day. No recent syncopal events, diarrhea, vomiting, patient is endorsing right-sided hemianopsia from previous CVA and is stating that he has adapted very well to his new vision change and is still driving, renewed his driving license 3 years ago, his CVA was 4 years ago. Patient has not reported his vision changed to the driving department yet. Diagnostics in the ER revealed new onset A. fib with RVR, hypertensive, D-dimer unremarkable however CTA chest revealed small pulmonary embolism, significant troponin however EKG is not showing any ischemic or infarctive changes patient is chest pain-free he has therapeutically loaded with Lovenox in the ER at the time my evaluation A. fib RVR heart rate 111 hypertensive diastolic 114 chest pain-free, BNP 12,000 Review of Systems Const: Reports: fatigue; Denies: fever(s) or chills Eyes: Reports: change in vision and blind spots (Right-sided hemianopsia from previous CVA) ENMT: Denies: throat pain Card: Reports: chest pain, swelling of feet/ankles, dyspnea on exertion and orthopnea Resp: Reports: dyspnea; Denies: non-productive cough GI: Denies: abdominal pain : Denies: flank pain Musc: Denies: neck pain Skin/Breast: Denies: rash Neuro: Reports: weakness in extremities and confusion Psych: Denies: anxiety Endo: Denies: polyuria [place]/Lymph: Denies: easy bruising All/Imm: Denies: urticaria Medications/Allergies Home Medications Medication Instructions Recorded Confirmed Last Taken Type carvedilol 3.125 mg PO BID 11/11/19 07/21/20 11/10/19 History lisinopril 10 mg PO DAILY 11/11/19 07/21/20 11/10/19 History nitroglycerin 0.4 mg SUBLINGUAL PRN PRN 11/11/19 07/21/20 07/21/20 History sertraline 25 mg PO DAILY 11/11/19 07/21/20 Unknown History spironolactone 25 mg PO DAILY 11/11/19 07/21/20 11/10/19 History atorvastatin 40 mg tablet 40 mg PO BEDTIME #90 tab 11/17/19 07/21/20 Unknown Rx potassium chloride 10 mEq 10 meq PO DAILY #60 cap 11/17/19 07/21/20 Unknown Rx capsule,extended release naproxen sodium 220 mg tablet 440 mg PO Q8H tab 11/30/19 07/21/20 Unknown History Adult Aspirin Regimen 81 mg PO DAILY@0600 07/21/20 07/21/20 Unknown History clopidogrel 75 mg PO DAILY@0600 07/21/20 07/21/20 07/21/20 History furosemide 40 mg PO DAILY@0600 07/21/20 07/21/20 07/21/20 History Allergies Allergy/AdvReac Type Severity Reaction Status Date / Time No Known Allergies Allergy Verified 07/21/20 15:47 PFSH Acute PFSH: Medical History Congestive heart failure Coronary artery disease LAD stent placed 2020 History of CVA (cerebrovascular accident) With residual right-sided vision deficits Hypertension Surgical History H/O cardiac catheterization Family History Father , secondary to trauma No problems noted. Mother No problems noted. Grandfather , Paternal grandfather, in his mid 50s CAD (coronary artery disease) Hypertension Diabetes Social History Smoking and tobacco status: current every day smoker cigarettes Packs smoked per day: 0.25 Years cigarettes smoked: 50 Alcohol intake: former Former alcohol use details: Previously would drink 1/5 of alcohol, whiskey, per day. Quit 6 years ago Vitals/I&O/Wt Last Vital Signs Pulse 114 H 07/21/20 20:00 Resp 28 H 07/21/20 20:00 BP 139/100 07/21/20 20:00 Pulse Ox 97 07/21/20 20:00 Weight last 48 hrs Weight 70.307 kg Physical Exam Narrative: EXAM NARRATIVE: Pleasant middle-age male currently sitting comfortably in his bed Rhythm is new which is irregular atrial fibrillation with RVR no active chest pain or shortness of breath saturating well on room air S1, S2 variable with active signs of heart failure Abdomen soft, bloated nontender Lower extremity no edema noted Bilateral breath sounds without respiratory distress Appropriate mood and affect Complete right hemianopsia No new neurological deficit EOMI, PERRLA GCS 15 Awake alert oriented x3 No joint swelling or skin changes Data : 07/21/20 16:34 07/21/20 16:34 A&P Assessment and plan (1) Pulmonary embolism: Status: Acute (2) Acute exacerbation of CHF (congestive heart failure): Status: Acute (3) New onset atrial fibrillation: Status: Acute Additional A&P Information New onset pulmonary embolism Right subsegmental, therapeutic dose of Lovenox started in the ER D-dimer unremarkable BNP 12,000troponin greater than 90 Considering clot burden he will not qualify for submassive pulmonary embolism Currently saturating well on room air We will transition to Eliquis on discharge Venous Doppler requested New onset atrial fibrillation with RVR This most likely is due to PE Continue therapeutic Lovenox, will give him Cardizem 10 mg IV push Echo in the morning, check magnesium level and TSH Acute heart failure reduced action fraction exacerbation Patient has not been taking his medications for last 1 week I would start him on Bumex, follow-up with echo in the morning Clinical signs of fluid overload BNP 12,000 Established coronary disease, LAD stent No active chest pain troponin significantly elevated, I would continue aspirin and Plavix along statins, Patient counseled to quit smoking extensively No ischemic infarct changes on EKG Complete right hemianopsia Patient is stating that he has adapted very well to his new vision change however has not reported his vision deficit to the licensing or driving department, I have encouraged patient to report himself, this needs to be further clarified before discharge, patient is very reluctant to report himself, kindly reevaluate Goals of care discussed with the patient he wishes to stay DNR/DNI we had a lengthy discussion regarding goals of care and his young age, he stated that he lives alone, he got few years ago have 4 children and does not want to be resuscitated, kindly reevaluate in the morning Cardiac diet DVT prophylaxis not indicated Attestations Medical Necessity Statement*: Anticipating discharge in less than 48 hours continued overnight monitoring because of active CH exacerbation new onset A. f ib and PE Time Spent in Patient Care: (>than 50% of time spent in counselling and/or direct pt care on unit) . 50mins Coding Level of Care Code Acute Forms Examiner for Chg Fwd Diagnoses Pulmonary embolism I26.99 Acute exacerbation of CHF (congestive heart failure) I50.9 New onset atrial fibrillation I48.91
--- NOTE | 2020-07-21 21:54 | ECG_ITS ---
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 Measurements Intervals [place] Rate: 113 P: [place]: QRS: -44 QRSD: 118 T: 113 QT: 353 QTc: 486 Interpretive Statements SINUS TACHYCARDIA MARKED LEFT AXIS DEVIATION [QRS AXIS < -30] LEFT VENTRICULAR HYPERTROPHY AND ST-T CHANGE [VOLTAGE CRITERIA PLUS ST/T ABNORMALITY] POSSIBLE SEPTAL MYOCARDIAL INFARCTION [30 ms Q WAVE IN V1/V2], PROBABLY OLD Compared to ECG 07/21/2020 18:20:14 Myocardial infarct finding now present Sinus tachycardia no longer present Atrial abnormality no longer present ST (T wave) deviation still present Electronically Signed On 07-22-2020 22:27:06 SAP BPC DEVELOPER by Valeria Dill M.D. [id number]
[2020-07-21] MEDS: atorvastatin 40 mg Tablet PO (22:09)
--- NOTE | 2020-07-21 23:07 | PC.NURSE ---
NURSE NOTE: ADMISSION NOTE: PT ARRIVED TO UNIT AT 210 TODAY. ALERT AND ORIENTED X4; MOVES ALL EXTREMITIES AND FOLLOWS ALL COMMANDS. DENIES PAIN AT THIS TIME. CURRENTLY RESTING WITH EYES CLOSED; RESP EVEN AND NON LABORED. ALL MEDS GIVEN ORDERED. NO DISTRESS NOTED AT THIS TIME.
[2020-07-21 23:42] LABS: Troponin 5 6HR 81.52 ng/L (0-15)
[2020-07-22] VITALS (71 sets, daily range): BP systolic 81–137; BP diastolic 59–103; PULSE 60–217; RESP 6–40; TEMP 36.1–37; O2SAT 80–99
--- NOTE | 2020-07-22 03:46 | PC.NURSE ---
NURSING NOTE: PLACED CALL TO DR. ROQUE AT THIS TIME. PT'S BP 137/103. RECEIVED ORDERS FOR VASOTEC IVP X1. PT DENIES CHEST PAIN OR DISCOMFORT. RESTING QUIETLY AT THIS TIME. WILL CONTINUE TO MONITOR.
[2020-07-22] MEDS: enalaprilat 1.25 mg/mL Inj 0.625 MG IVP (04:01)
--- NOTE | 2020-07-22 04:46 | PC.NURSE ---
NURSING NOTE: PT ALERT AND ORIENTED X4; MOVES ALL EXTREMITIES AND FOLLOWS COMMANDS. CURRENT BP 117/80. PT RESTING WITH EYES CLOSED. RESP. EVEN AND NON LABORED/ 02 ON @ 2L PER NC D/T LOW 02 SATS WHILE SLEEPING. DENIES PAIN. DOES C/O ABDOMINAL BLOATING AND FEELING LIKE HE CAN'T BREATHE. VERY SOA WITH EXERTION. RECOVERS ADEQUATELY. NO DISTRESS NOTED AT THIS TIME. WILL CONTINUE TO MONITOR.
[2020-07-22 04:54] LABS: Anion Gap 15.3 (5-19); Blood Urea Nitrogen 38 mg/dL (8-23); Calcium 9.4 mg/dL (8.5-10.5); Carbon Dioxide 23 mmol/L (22-29); Chloride 102 mmol/L (98-107); Glomerular Filtration Rate 68.1 mL/min (90-130); Glucose 108 mg/dL (65-115); Osmolality Calculated 292 mOsm/kg (285-295); Potassium 4.3 mmol/L (3.5-5.1); Sodium 136 mmol/L (136-145)
[2020-07-22 05:12] LABS: Amphetamines Screen Urine Negative (Negative); Barbiturates Screen Urine Negative (Negative); Benzodiazepines Screen Urine Negative (Negative); Cocaine Screen Urine Negative (Negative); Opiate Screen Urine Negative (Negative); PCP Screen Urine Negative (Negative); THC Screen Urine Positive (Negative)
[2020-07-22] MEDS: clopidogrel 75 mg Tablet PO (06:12)
[2020-07-22] MEDS: aspirin 81 mg EC Tablet PO (06:12)
--- NOTE | 2020-07-22 08:38 | PM.PN ---
Subjective Subjective: Interval history: On examination patient lying comfortably in bed early in the morning. Denying any nausea, vomiting, headache. States he has not been taking medication for 3 months as medications made him feel yucky and sick to stomach. Got called to the patient's bedside later in the day at around 2 PM as patient went up to have a bowel movement at bedside commode and had presyncopal event. Orthostatic at that time negative. Patient's blood pressure and heart rate remained stable. Patient had become cold and clammy but resolved in 3 minutes after putting him back to bed. Patient complaining of epigastric discomfort. EKG negative for any sign of ischemia. Troponins done elevated to 103. Patient states he has been having similar symptoms at home as well with minimal ambulation, exertion or sexual activity. He states every time he does minimal activity he starts having epigastric discomfort followed by diarrheal bowel movement. He thinks it is because of the medications. Discussed with patient in detail that this is most likely because of active CAD versus cardiogenic shock. Vitals/I&O/Wt Last Vital Signs Temp 98.6 F 07/22/20 07:00 Pulse 128 H 07/22/20 07:00 Resp 18 07/22/20 07:00 BP 127/101 07/22/20 07:00 Pulse Ox 96 07/22/20 07:00 07/21/20 07/22/20 07/22/20 22:59 06:59 14:59 Intake Total 240 / 240 235 / 475 360 / 360 Output Total 325 / 325 Balance 240 / 240 -90 / 150 360 / 360 Weight last 48 hrs Weight 70.307 kg Physical Exam Narrative: EXAM NARRATIVE: Pleasant middle-age male currently sitting comfortably in his bed Rhythm is new which is irregular atrial fibrillation with RVR no active chest pain or shortness of breath saturating well on room air S1, S2 variable with active signs of heart failure Abdomen soft, bloated nontender Lower extremity no edema noted Bilateral breath sounds without respiratory distress Appropriate mood and affect Complete right hemianopsia No new neurological deficit EOMI, PERRLA GCS 15 Awake alert oriented x3 No joint swelling or skin changes Data : 07/21/20 16:34 07/22/20 04:10 A&P Assessment and plan (1) Pulmonary embolism: Status: Acute (2) New onset atrial fibrillation: Status: Acute (3) Acute exacerbation of CHF (congestive heart failure): Status: Acute (4) Coronary artery disease: Status: Acute (5) Cardiogenic shock: Status: Acute Additional A&P Information CAD: Patient has a history of PCI to LAD from non-ST elevation MD in October 2019. Noncompliant with medications. No active chest pain. Continue with aspirin, Plavix, statin. Cardiogenic shock: Relative. Patient having symptoms of cardiogenic shock. He gets diaphoretic on standing up along with nausea, vomiting and epigastric pain and diarrheal bowel movements on minimal physical activity even as an outpatient. Start on dobutamine 5 mics for now. Can uptitrate. Keep mean arterial pressures over 65 mmHg. Acute on chronic congestive heart failure: Echocardiogram done today shows EF of 10 to 15% which is new as compared to 30% last year with severe global LV hypokinesia, grade 3 diastolic dysfunction, severely dilated LV, biatrial enlargement, mild to moderate MR, mild TR, moderate pulmonary hypertension. Continue with IV Lasix 40 mg IV twice daily. Strict input output charting. Daily weights. Fluid restriction up to 1500 cc. For now hold off on lisinopril, spironolactone, beta-hema. Monitor magnesium, calcium. Patient has a high risk of ventricular arrhythmias. EKG done today has a normal QTC. We will continue to monitor. New pulmonary embolism: Without right heart strain. Subsegmental right side. Continue with full dose Lovenox 1 mg KG body weight every 12 hourly. Venous Doppler results appreciated. Appreciate cardiology recommendations. Plan for a possible left heart cath and a right heart cath in next few days if patient stabilizes continues to improve. Counseled regarding smoking cessation. Can use nicotine patch as needed. DNR/DNI- Code status discussed again with patient with mother at bedside. Cardiac diet. Full dose Lovenox will also for DVT prophylaxis. Move patient to ICU for cardiogenic shock requiring dobutamine drip. Guarded prognosis. Attestations Medical Necessity Statement*: Patient requires further hospitalization for management of cardiogenic shock in setting of CAD and acute on chronic systolic heart failure with EF of around 10 to 15%. Time Spent in Patient Care: Greater than 35 minutes (>than 50% of time spent in counselling and/or direct pt care on unit). Coding Level of Care Code Acute Pressure Testing Technician for Naun Benoit Diagnoses Pulmonary embolism I26.99 New onset atrial fibrillation I48.91 Acute exacerbation of CHF (congestive heart failure) I50.9 Coronary artery disease I25.10 Cardiogenic shock R57.0
[2020-07-22] MEDS: spironolactone 25 mg Tablet PO (08:42)
[2020-07-22] MEDS: potassium chloride ER 10 mEq Tablet PO (08:42)
[2020-07-22] MEDS: sertraline 50 mg Tablet 25 MG PO (08:42)
[2020-07-22] MEDS: lisinopril 10 mg Tablet PO (08:42)
[2020-07-22] MEDS: enoxaparin 80 mg/0.8 mL Syringe 70 MG SUBCUT ×2 (08:42→20:10)
[2020-07-22] MEDS: pantoprazole DR 40 mg Tablet PO (08:47)
[2020-07-22] MEDS: metoprolol tartrate 50 mg Tablet PO (08:47)
[2020-07-22] MEDS: FUROsemide 10 mg/mL SDV 4mL 40 MG IVP ×2 (08:47→17:50)
[2020-07-22 09:22] LABS: Procalcitonin 0.14 ng/mL (0-0.5)
[2020-07-22 09:33] LABS: Chol HDL Ratio 4.95 mg/dL (1.0-5.00); Cholesterol 183 mg/dL (0-200); HDL Cholesterol 37 mg/dL (60-100); LDL Cholesterol Calculated 120 mg/dL (50-129); LDL HDL Ratio 3.24 RATIO (0.00-3.22); Magnesium 2.1 mg/dL (1.7-2.3); Phosphorus 3.9 mg/dL (2.5-4.5); Triglycerides 132 mg/dL (0-150)
--- NOTE | 2020-07-22 12:07 | PC.NURSE ---
Pt checked in room since he is off the telemetry Pt sitting on the edge og bed. He said he just got back from the bathroom by himself. Noted he is short of breath without his oxygen on, mottled face and lower extremities,cool skin and diaphoretic. Helped pt back in bed. Elevated feet up. Applied oxygen on at 3 L/min. VS checked BP-91/70 laying(77), sit up-100/74(82),stand up-96/73(80), HR-58-63. He reported of abdominal cramps and loose BMs. Notified via secure messaging. Will keep monitoring.
--- NOTE | 2020-07-22 12:17 | PC.CHAP ---
Pastoral Care Encounter/Spiritual Assessment Type of Contact [] Declined supervisor ship maintenance services visit [] Patient/Family/Request visit [] Outpatient visit [] Follow-up visit [] Physician referral [] Code/Alert [xx] Routine visit [] Staff referral [] Actively dying [] Patient sleeping [] Family support [] [] Out of room [] Palliative care [] [] Receiving care in room [] Pre-surgical visit [] Trauma [] Long length of stay [] ICU visit [] Other: Relational/Emotional Strength [xx] Patient feels connected with others/family/visitors/staff [] Distress [] Loneliness/isolation [] Abandonment Spirituality of Patient [xx] Person of Marii [] Attends Judaism of their Marii [xx] Believes in Prayer [xx] Reads Bible or Hinduism materials [] There are Spiritual issues to be addressed Manager Rehab Interventions [xx] Prayer [xx] Active listening [xx] Non-anxious presence [] Spiritual/emotional support [] Crisis/trauma care [] Spiritual counseling [] Bereavement support [] Provided bereavement packet [xx] Provided Bible/devotional materials [] Provided toy/stuffed animal, coloring book to patient or family member [] Provided Communion [] Anointing/[place] [] Salvation [xx] Completed spiritual assessment [] Other: Impact on Illness or Injury [] Angry [] Fearful [] Anxious [] Often cries [] Exhaustion [] Unable to work [] Unable to attend temple [] Unable to walk/stand [] Unable to read [] Unable to drive [] Unable to eat/drink [] Unable to sleep [] Unable to be with family [] Patient intubated [] Other: Summary Patient more concerned about his mother's upcoming knee replacement surgery than about his own health. Patient requested supervisor ship maintenance services pray for both him and his mother to over come current medical issues. Manager Rehab prayed accordingly. Manager Rehab left [employer] devotional for him to read. Time spent with patient 10 minutes
--- NOTE | 2020-07-22 12:36 | ECG_ITS ---
[facility] Test Date: 2020-07-22 Pat Name: Amador Dickson Department: Room: 111 Gender: Male Health Information Tech: : 1960 Requested By: Marshal Greco Order Number: [id number] Emily MD: Valeria Dill M.D. Measurements Intervals [place] Rate: 61 P: 44 MS: 236 QRS: -44 QRSD: 113 T: 117 QT: 486 QTc: 490 Interpretive Statements SINUS RHYTHM WITH FIRST DEGREE AV BLOCK POSSIBLE LEFT ATRIAL ENLARGEMENT [-0.1mV P WAVE IN V1/V2] MARKED LEFT AXIS DEVIATION [QRS AXIS < -30] POSSIBLE LEFT VENTRICULAR HYPERTROPHY [VOLTAGE CRITERIA PLUS LAE OR QRS WIDENING] MODERATE T-WAVE ABNORMALITY, CONSIDER LATERAL ISCHEMIA [-0.1+ mV T WAVE IN I/aVL/V5/V6] Compared to ECG 07/21/2020 21:41:36 First degree AV block now present T-wave abnormality now present Possible ischemia now present Atrial flutter no longer present ST (T wave) deviation no longer present Myocardial infarct finding no longer present Electronically Signed On 07-22-2020 22:24:34 TIN FLIPPER by Valeria Dill M.D. [id number]
[2020-07-22 13:17] LABS: Estmated Average Glucose 114; Hemoglobin A1C 5.6 % (4.0-6.0)
--- NOTE | 2020-07-22 13:31 | PC.NURSE ---
Pt instrcuted to be in bedrest due to his episode of distress this morning He got up to use the commode at bedside w/o letting the nurse know. His mother Vera at bedside and reeducate pt to call the nurse when he goes out in bed. Bed alarm set.
--- NOTE | 2020-07-22 14:50 | PC.NURSE ---
Pt refused to use the bedpan and insist to go to the bedside commode Reinforced and educated pt on his weak heart function and prevention of fall. Pt still went to the bedside commode. Assisted pt and monitored. He stated his stomach is hurting rated at 8/10. Noted acrocyanosis, ashen face when he exerts himself. Notified Dr to come pt to bedside and doctor came immediately.
--- NOTE | 2020-07-22 14:54 | XR_ITS ---
WS: [id number] Exam: XR acute abdomen series [id number] Date/Time of Exam: 07/22/2020 3:08 PM Reason For Exam: abdominal pain AP chest radiograph. The heart is enlarged. The lungs are fully expanded and clear. No pleural effusions. Images of the abdomen demonstrate no bowel obstruction or free air. A 4 x 1 mm calcification seen in the left abdomen is nonspecific but could represent a small renal calculus. Bony structures are intac t. A single metallic clip is seen in the upper left quadrant of the abdomen. Organ margins are obscur ed. XR/XR acute abdomen series [id number] IMPRESSION: 1. Cardiac enlargement. No acute cardiopulmonary process. 2. No acute abdominal process. 3. 4 x 1 mm left abdominal calcification which is nonspecific but could represe nt a renal calculus.
--- NOTE | 2020-07-22 15:17 | PC.RESP ---
Smoking Cessation information sent to patient.
[2020-07-22 15:56] LABS: Lactate (Lactic Acid level) 2.7 mmol/L (0.5-2.2)
--- NOTE | 2020-07-22 16:00 | PC.NURSE ---
Cardiology at bedside/pt vomited with emesis Dr. Lizarraga order to start pt on Dobutamine drip at 5 mcg/kg/min. Received verbal order to give pt 40 IVP lasix now. Asked doctor to transfer pt to ICU.
[2020-07-22 16:01] LABS: Troponin T (5th) Once 103 ng/L (0-15)
[2020-07-22] MEDS: famotidine 20 mg/2 mL INJ IVP (16:29)
--- NOTE | 2020-07-22 16:58 | P.CONIM_ITS ---
Providers/Reason For Consult Consulting Physican/Specialty*: Quinn Lizarraga MD/Cardiology Reason for Consult*: Congestive heart failure Attending Physician: Marshal Greco MD Primary Care Provider: Lorraine Torres DO History of Present Illness History of Present Illness Amador Dickson is a 59 year old male with PMH of coronary artery disease s/p PCI performed last year in the LAD, hypertension, CVA and congestive heart failure presented with complaints of shortness of breath. According to patient, he had been having shortness of breath over the last few weeks. This has been worsening overtime. He is not compliant with the medications. He denies current chest pain but has had few episodes previously. He has been found to have a subsegmental PE on the right side and has been started on the Lovenox. Patient had afib in the ER. [place] [address]. Troponins were 98 and no significant delta was noted with these. Currently blood pressure is maintained but he is pale, has been having nausea/vomiting and diarrhea. His blood pressure is in 90s systolic. He complains of abdominal pain ECHO shows a new significant decrease in LV systolic function Review of Systems General: Reports: 10 or more systems reviewed and unremarkable except in HPI and below Card: Reports: chest pain Resp: Reports: dyspnea GI: Reports: abdominal pain Meds/Allergies Home Medications and Allergies Home Medications Medication Instructions Recorded Confirmed Last Taken Type carvedilol 3.125 mg PO BID 11/11/19 07/21/20 11/10/19 History lisinopril 10 mg PO DAILY 11/11/19 07/21/20 11/10/19 History nitroglycerin 0.4 mg SUBLINGUAL PRN PRN 11/11/19 07/21/20 07/21/20 History sertraline 25 mg PO DAILY 11/11/19 07/21/20 Unknown History spironolactone 25 mg PO DAILY 11/11/19 07/21/20 11/10/19 History atorvastatin 40 mg tablet 40 mg PO BEDTIME #90 tab 11/17/19 07/21/20 Unknown Rx potassium chloride 10 mEq 10 meq PO DAILY #60 cap 11/17/19 07/21/20 Unknown Rx capsule,extended release naproxen sodium 220 mg tablet 440 mg PO Q8H tab 11/30/19 07/21/20 Unknown History Adult Aspirin Regimen 81 mg PO DAILY@0600 07/21/20 07/21/20 Unknown History clopidogrel 75 mg PO DAILY@0600 07/21/20 07/21/20 07/21/20 History furosemide 40 mg PO DAILY@0600 07/21/20 07/21/20 07/21/20 History Allergies Allergy/AdvReac Type Severity Reaction Status Date / Time No Known Allergies Allergy Verified 07/21/20 15:47 Current Medications Current Medications Generic Name Dose Route Start Last Admin Trade Name Praful PRN Reason Stop Dose Admin Aspirin 81 mg 07/22/20 06:00 07/22/20 06:12 Aspirin 81 Mg Ec Tablet PO 81 mg DAILY@0600 LAURA Administration Atorvastatin Calcium 40 mg 07/21/20 21:09 07/21/20 22:09 Atorvastatin 40 Mg Tablet PO 40 mg BEDTIME LAURA Administration Clopidogrel Bisulfate 75 mg 07/22/20 06:00 07/22/20 06:12 Clopidogrel 75 Mg Tablet PO 75 mg DAILY@0600 LAURA Administration Enoxaparin Sodium 70 mg 07/22/20 09:00 07/22/20 08:42 Enoxaparin 80 Mg/0.8 Ml Syringe SUBCUT 70 mg Q12H LAURA Administration Famotidine 20 mg 07/22/20 15:15 07/22/20 16:29 Famotidine 20 Mg/2 Ml Inj IVP 20 mg Q12H LAURA Administration Furosemide 40 mg 07/22/20 08:45 07/22/20 08:47 Furosemide 10 Mg/Ml Sdv 4ml IVP 40 mg Q24H LAURA Administration Lisinopril 10 mg 07/22/20 09:00 07/22/20 08:42 Lisinopril 10 Mg Tablet PO 10 mg DAILY LAURA Administration Potassium Chloride 10 meq 07/22/20 09:00 07/22/20 08:42 Potassium Chloride Er 10 Meq Tablet PO 10 meq DAILY LAURA Administration Sertraline HCl 25 mg 07/22/20 09:00 07/22/20 08:42 Sertraline 50 Mg Tablet PO 25 mg DAILY LAURA Administration Spironolactone 25 mg 07/22/20 09:00 07/22/20 08:42 Spironolactone 25 Mg Tablet PO 25 mg DAILY LAURA Administration PFSH Acute PFSH: Medical History Congestive heart failure Coronary artery disease LAD stent placed 2020 History of CVA (cerebrovascular accident) With residual right-sided vision deficits Hypertension Nicotine dependence, cigarettes, with unspecified nicotine-induced disorders Surgical History H/O cardiac catheterization Family History Father , secondary to trauma No problems noted. Mother No problems noted. Grandfather , Paternal grandfather, in his mid 50s CAD (coronary artery disease) Hypertension Diabetes Social History Smoking and tobacco status: current every day smoker cigarettes Packs smoked per day: 0.25 Years cigarettes smoked: 50 Alcohol intake: former Former alcohol use details: Previously would drink 1/5 of alcohol, whiskey, per day. Quit 6 years ago Vitals/I&O/Wt Last Vital Signs Temp 97.0 F L 07/22/20 15:07 Pulse 64 07/22/20 15:07 Resp 16 07/22/20 15:07 BP 108/73 07/22/20 15:07 Pulse Ox 96 07/22/20 15:07 07/22/20 07/22/20 07/22/20 06:59 14:59 22:59 Intake Total 235 / 475 360 / 360 Output Total 325 / 325 Balance -90 / 150 360 / 360 Weight last 48 hrs Weight 163 lb 1 oz Weight 155 lb Physical Exam Narrative: EXAM NARRATIVE: Pale looking man who is alert and oriented x3 S1 S2 , tachycardia Abdomen soft, bloated nontender No lower extremity edema seen Bilateral breath sounds without respiratory distress Appropriate mood and affect EOMI, PERRLA No joint swelling or skin changes Data Micro: Micro: Microbiology 07/22/20 14:45 Stool Lactoferrin - Final Stool Occult Blood (FIT) - Final A&P Assessment and plan (1) Cardiogenic shock: Status: Acute (2) New onset atrial fibrillation: Status: Acute (3) Acute exacerbation of CHF (congestive heart failure): Status: Acute (4) Pulmonary embolism: Status: Acute (5) Coronary artery disease: Status: Acute Patient is exhibiting signs of early shock. His LV EF has dropped significantly compared with last year and is 10-15% now. He has cool extremitie s,having abdominal symptoms and is volume overloaded. Check lactate Start dobutamine gtt Continue IV Lasix Anticoagulation with Lovenox Once patient is more stable, will consider right and left heart cath, likely on Saturday Transfer to ICU Thank you for involving us with care of this patient. We will continue to follow. Please call with question Coding Level of Care Code Acute Disc Pad Knockout Worker for Naun Benoit Diagnoses Cardiogenic shock R57.0 New onset atrial fibrillation I48.91 Acute exacerbation of CHF (congestive heart failure) I50.9 Pulmonary embolism I26.99 Coronary artery disease I25.10
--- NOTE | 2020-07-22 17:02 | PC.NURSE ---
Pt to start vomiting x1 Emesis noted. Dr. Lizarraga at bedside. will start dobutamine drip once pharmacy verifies it. to start at 5 mcg/kg/min with fixed rated.
[2020-07-22 17:04] LABS: Glucose Point of Care 123 mg/dL (70-110)
[2020-07-22] MEDS: DOBUTamine drip 500 MG/250 ML PREMIX 11.1 MG IV (17:13)
--- NOTE | 2020-07-22 17:35 | PC.NURSE ---
Hand-off report to ICU Report given to Harvey. Dr. Caceres verbal order to put billingsley catheter.
--- NOTE | 2020-07-22 18:00 | ECG_ITS ---
[facility] Test Date: 2020-07-22 Pat Name: Amador Dickson Department: Room: ICU03 Gender: Male Scuba Dive Training Instructor: : 1960 Requested By: Marshal Greco Order Number: [id number] Emily MD: Valeria Dill M.D. Measurements Intervals [place] Rate: 66 P: 41 ME: 229 QRS: -48 QRSD: 115 T: 114 QT: 490 QTc: 514 Interpretive Statements SINUS RHYTHM WITH FIRST DEGREE AV BLOCK POSSIBLE RIGHT ATRIAL ENLARGEMENT [0.25mV P WAVE] LEFT ATRIAL ENLARGEMENT [-0.15mV P WAVE IN V1/V2] LEFT ANTERIOR FASCICULAR BLOCK [QRS AXIS <= -45, QR IN I, RS IN II] MODERATE T-WAVE ABNORMALITY, CONSIDER LATERAL ISCHEMIA [-0.1+ mV T WAVE IN I/aVL/V5/V6] Compared to ECG 07/22/2020 13:03:27 Left anterior fascicular block now present Left-axis deviation no longer present T-wave abnormality still present Possible ischemia still present Electronically Signed On 07-22-2020 22:19:20 BENZOL STILL OPERATOR by Valeria Dill M.D. [id number]
[2020-07-22] MEDS: ondansetron 2 mg/ML SDV 2 mL 4 MG IVP (18:16)
--- NOTE | 2020-07-22 18:20 | PC.NURSE ---
Received patient from CSU nurse. Dobutamine drip continued at 5 MC/Kg/Min. ICU nurse gave zofran for nausea and vomiting. Current vitals: HR 65, 99% spo2, RR:24, BP is 79/58.
[2020-07-22 20:05] LABS: Troponin 5 2HR 99.15 ng/L (0-15)
[2020-07-22 20:06] LABS: Troponin 5 2HR Delta -3.85 ABS# (0-10)
[2020-07-22] MEDS: sucralfate 1 gm Tablet PO (20:10)
[2020-07-22] MEDS: atorvastatin 40 mg Tablet PO (20:10)
--- NOTE | 2020-07-22 21:09 | USCV_ITS ---
Amador Dickson Age: 59 Gender: M : 1960 Exam Date: 07/22/2020 06:13 Ordering Phys: Fletcher Moore MD Technologist: Peyton Moreno Exam Location: [facility] – [place] Indication: PE AND CHF BP: 137 / 103 HR: 100 Rhythm: Sinus Technical Quality: Adequate MEASUREMENTS (Male / Female) Normal Values 2D ECHO LV Diastolic Diameter PLAX 7.1 cm 4.2 - 5.9 / 3.9 - 5.3 cm LV Systolic Diameter PLAX 7.1 cm LV Chamber Size 5.2 cm IVS Diastolic Thickness 1.1 cm 0.6 - 1.0 / 0.6 - 0.9 cm IVS Systolic Thickness 1.1 cm LVPW Diastolic Thickness 1.9 cm 0.6 - 1.0 / 0.6 - 0.9 cm LVPW Systolic Thickness 2.1 cm RV Chamber Size 4.4 cm LVOT Diameter 2.2 cm LV Ejection Fraction 2D Teich 0.9 % LV Ejection Fraction MOD 2C -2.0 % LV Ejection Fraction 2C AL 0.9 % LA Diameter 4.0 cm LA Width 3.9 cm LA Height 6.2 cm RA Width 3.9 cm RA Height 5.4 cm Aorta at Sinotubular Diameter 2.3 cm M-MODE LV Diastolic Diameter MM 7.9 cm 4.2 - 5.9 / 3.9 - 5.3 cm LV Systolic Diameter MM 7.1 cm LV Ejection Fraction MM Teich 19.1 % IVS Diastolic Thickness MM 0.8 cm 0.6 - 1.0 / 0.6 - 0.9 cm IVS Systolic Thickness MM 1.0 cm LVPW Diastolic Thickness MM 1.2 cm 0.6 - 1.0 / 0.6 - 0.9 cm LVPW Systolic Thickness MM 1.6 cm Aortic Annulus Diameter 3.6 cm LA Ao Ratio MM 1.2 MV E Point Septal Separation 2.4 cm DOPPLER AV Peak Velocity 96.0 cm/s LVOT Peak Velocity 70.0 cm/s AV Area Cont Eq vti 2.9 cm squared AV Area Cont Eq pk 2.7 cm squared MV Area PHT 6.3 cm squared Mitral E to A Ratio 4.6 MV E' Velocity 60.0 cm/s Mitral E to MV E' Ratio 16.6 Mitral E to LV E' Lateral Ratio 12.7 Mitral E to LV E' Septal Ratio 24.8 TR Peak Velocity 318.5 cm/s TR Peak Gradient 40.6 mmHg TV Peak E Velocity 53.0 cm/s Right Atrial Pressure 3.0 mmHg Pulmonary Artery Systolic Pressu 43.6 mmHg PV Peak Velocity 74.0 cm/s RV Acceleration Time 0.1 s RV Ejection Time 0.3 s RV AcT/ET 0.3 FINDINGS Left Ventricle Severely dilated left ventricle. LV systolic function is severely reduced with EF of 10 to 15%. Severe global hypokinesis is noted. Grade 3 diastolic dysfunction. Right Ventricle The right ventricle dilated and has severely reduced function. Right Atrium The right atrium is enlarged Left Atrium The left atrium is moderately dilated Mitral Valve Structurally normal mitral valve without significant stenosis or prolapse. There is mild to moderate mitral regurgitation. Aortic Valve Structurally normal aortic valve without significant sclerosis or stenosis. There is no aortic regurgitation. Tricuspid Valve Structurally normal tricuspid valve without significant stenosis. There is mild tricuspid regurgitation. RVSP is 40 to 45 mmHg consistent with moderate pulmonary hypertension. Pulmonic Valve Structurally normal pulmonic valve without significant stenosis. There is no pulmonic regurgitation. Pericardium Normal pericardium without effusion. Aorta Normal ascending aorta dimension. CONCLUSIONS Severely dilated left ventricle. LV systolic function is severely reduced with EF of 10 to 15%. Severely reduced RV function. Biatrial enlargement is noted. Mild to moderate mitral regurgitation is present. Mild tricuspid regurgitation is seen. Moderate pulmonary hypertension. Compared to prior echocardiogram from 2019, LV systolic function is severely reduced now. RV function is also reduced. Quinn Lizarraga MD (Electronically Signed) Final Date: 22 July 2020 10:56 S
[2020-07-22 21:13] LABS: Add Urine Microscopic? YES; Bilirubin Urine Neg (Negative); Blood Urine 3+ (Negative); Glucose Urine UA Norm (Normal); Ketones Urine Negative (Negative); Leukocyte Esterase Urine 1+ (Negative); Nitrate Urine Negative (Negative); Protein Urine 1+ (Negative); Urine Color Red (Yellow); Urobilinogen Urine 1 mg/dL (Negative); pH Urine 5 (5-7)
[2020-07-22 21:26] LABS: Add Urine Culture? Yes; Bacteria Urine TRACE /hpf; RBC Urine TOO NUMEROUS TO CNT /hpf (0-2); Squamous Epithelial Cell Urine 0-4 /hpf (0-5); WBC Urine 15-25 /hpf (0-5)
--- NOTE | 2020-07-22 22:00 | ECG_ITS ---
[facility] Test Date: 2020-07-23 Pat Name: Amador Dickson Department: Room: ICU03 Gender: Male Flight Kitchen Manager: : 1960 Requested By: Marshal Greco Order Number: [id number] Emily MD: Quinn Lizarraga M.D. Measurements Intervals [place] Rate: 80 P: 64 NE: 196 QRS: -28 QRSD: 114 T: 124 QT: 440 QTc: 508 Interpretive Statements SINUS RHYTHM RIGHT ATRIAL ENLARGEMENT [0.3mV P WAVE] POSSIBLE LEFT ATRIAL ENLARGEMENT [-0.1mV P WAVE IN V1/V2] BORDERLINE LEFT AXIS DEVIATION [QRS AXIS < -20] MODERATE INTRAVENTRICULAR CONDUCTION DELAY [110+ ms QRS DURATION] NONSPECIFIC ST & T-WAVE ABNORMALITY PROLONGED QT INTERVAL Compared to ECG 07/22/2020 18:20:42 Intraventricular conduction delay now present Prolonged QT interval now present Possible ischemia no longer present T-wave abnormality still present Electronically Signed On 07-23-2020 15:31:15 MANAGER SERVICING by Quinn Lizarraga M.D. [id number]
--- NOTE | 2020-07-22 22:05 | USCV_ITS ---
Amador Dickson Age: 59 Gender: M : 1960 Exam Date: 07/22/2020 05:58 Ordering Phys: Fletcher Moore MD Technologist: Rosalee Mitchell Exam Location: [facility] [place] Indication: BLE EVAL FOR DVT HISTORY: Lower extremity pain. PROCEDURES: Venous duplex imaging was performed in bilateral lower extremities. The following venous structures were evaluated: common femoral vein, profunda vein, proximal portion of the greater saphenous vein, superficial femoral vein, and the popliteal vein. In addition, the posterior tibial veins were evaluated. In addition, the posterior tibial and peroneal trunk were evaluated. Serial compression, augmentation maneuvers, and spectral Doppler flow evaluation were performed. FINDINGS: No evidence of DVT seen in any vessel visualized at this time. CONCLUSIONS No evidence of right lower extremity DVT. No evidence of left lower extremity DVT. Ryan Murphy MD (Electronically Signed) Final Date: 22 July 2020 11:01 S
[2020-07-22 22:37] LABS: Troponin 5 6HR Delta -8.7 ng/L (0-12)
[2020-07-23] VITALS (53 sets, daily range): BP systolic 70–113; BP diastolic 47–89; PULSE 61–97; RESP 8–30; TEMP 36.7–36.8; O2SAT 78–100; BMI 24.5
--- NOTE | 2020-07-23 00:42 | PC.NURSE ---
ASSUMING CARE Patient resting in bed and is alert and oriented x 4. Patient is on dobutamine drip at 5 mcg/kg/min and stays at set rate per physician order. Patient denies any pain at this time and was put on the bedpan. Sánchez catheter in place and draining. Approximately 25 mL of urine in bag.
--- NOTE | 2020-07-23 01:29 | PC.NURSE ---
BILLINGSLEY CATHETER Patients billingsley catheter leaking and patient complaining of urgency and states it hurts when he goes. Nurse checked balloon in catheter and 10 mL of saline in place. Patient was bearing down and a small amount of slightly blood urine noted leaking around catheter. Dr. Moore notified and gave order to change out billingsley. Billingsley catheter taken out and patient requested that he attempt to pee prior to new one being placed. Patient only able to dribble a small amount of hematuria. New catheter placed and 25 mL of urine drained. Dr. Moore notified of minimal urine output with replacement of catheter and hematuria. No new orders at this time.
--- NOTE | 2020-07-23 02:14 | PC.NURSE ---
PATIENT UPSET Patient was heard cussing and appeared frustrated in his room. Nurse reported to check on patient and patient states, I want this catheter out, I don't even know why they put it in the first place. I cant pee and this weird sensation is there that I have to pee but I cant. I haven't had anything to drink and I'm thirsty. Patient pulled leads, gown, and other cables off and attempting to get out of bed on his own and raising voice about frustrations at nurse. Nurse asked patient what she could do to help him and educated on importance of heart monitor leads and IV medications with patient. Nurse explained purpose of billingsley catheter and fluid restriction and patient remains insistent that nurse remove billingsley catheter. Billingsley catheter removed, patient assisted to bedside commode to try to urinate. Patient taken orange juice as requested after education given on importance of fluid restriction. Patient assisted back to bed and agreed to nurse placing heart monitor leads and cables back on patient.
[2020-07-23] MEDS: OLANZapine 10 mg VIAL 5 MG IM (02:42)
[2020-07-23] MEDS: famotidine 20 mg/2 mL INJ IVP ×2 (02:42→15:54)
[2020-07-23] MEDS: cefTRIAXone 1,000 MG in sodium chloride 0.9% (plus) 50 ML 100 MG IV (02:42)
[2020-07-23] MEDS: phenazopyridine 100 mg Tablet PO ×4 (02:50→18:08)
--- NOTE | 2020-07-23 03:40 | PC.NURSE ---
OUT OF BED Nurse heard patients bed alarm going off. Nurse to room to assist patient to bedside commode. Patient had urinated in floor and taken leads and blood pressure cuff off. Patient educated on importance of call light use for safety and assisted back to bed. Patient continues to refuse gown and states he is more comfortable naked. Patient remains frustrated. Dr. Moore notified of patients complaints of discomfort when urinating post urinary catheter removal and frustration. Physician ordered 5 mg IM zyprexa one time and scheduled pyridium. Patient is currently resting in bed with bed alarm on and is sleeping.
--- NOTE | 2020-07-23 05:00 | USR_ITS ---
PROCEDURE INFORMATION: Exam: US Abdomen Complete Exam date and time: 07/23/2020 6:29 AM Age: 59 years old Clinical indication: Abdominal pain TECHNIQUE: Imaging protocol: Real-time ultrasound of the abdomen with image documentation. COMPARISON: CT Abdomen/Pelvis Renal [id number] 05/16/2019 8:38 AM FINDINGS: Liver: No focal hepatic mass. Gallbladder: No cholelithiasis, gallbladder wall edema, or pericholecystic fluid. Common bile duct: Normal caliber of the incompletely visualized common bile duct measuring 5 mm in diameter. Pancreas: No acute sonographic abnormality in the visualized proximal pancreas without obscuration of the distal body and tail regions by bowel gas. Kidneys: 1 mm nonobstructing bilateral renal calculi. CT detected nodular renal hypodensities are not visualized on the current sonographic study. Spleen: No splenomegaly. Aorta: Normal caliber of the proximal abdominal aorta without obscuration of the distal abdominal aorta by bowel gas. Inferior vena cava: Unremarkable IVC. US/US abdomen complete* [id number] IMPRESSION: 1. 1 mm nonobstructing bilateral renal calculi. 2. Additional findings as described above.
[2020-07-23 05:22] LABS: Basophils # 0.1 10^3/uL (0.0-0.1); Basophils % 0.3 %; Eosinophils % 0.1 %; Hematocrit 42.3 % (42.0-52.0); Hemoglobin 13.4 g/dL (11.7-16.6); Lymphocytes # 1.5 10^3/uL (0.8-4.8); Lymphocytes % 9.4 %; Mean Corpuscular HGB Conc 31.7 g/dL (30.0-36.0); Mean Corpuscular Hemoglobin 29.3 pg (28.0-34.0); Mean Corpuscular Volume 92.6 fL (80-94); Mean Platelet Volume 10.9 fL (7.4-10.4); Monocytes # 1.1 10^3/uL (0.2-0.9); Monocytes % 6.9 %; Neutrophils # 13.31 10^3/uL (1.8-7.7); Neutrophils % 82.9 %; Nucleated Red Blood Cells % 0 %; Platelet Count 254 10^3/cmm (130-400); Red Blood Count 4.57 10^6/uL (4.1-5.3); Red Cell Distribution Width 13.4 % (12.1-15.1); White Blood Count 16.1 10^3/uL (4.0-10.0)
[2020-07-23 05:40] LABS: Lactate (Lactic Acid level) 1.5 mmol/L (0.5-2.2)
[2020-07-23 05:45] LABS: Alanine Aminotransferase 57 U/L (0-41); Albumin Level 3.2 g/dL (3.5-5.2); Alkaline Phosphatase 88 IU/L (40-130); Blood Urea Nitrogen 46 mg/dL (8-23); Calcium 8.9 mg/dL (8.5-10.5); Carbon Dioxide 21 mmol/L (22-29); Chloride 102 mmol/L (98-107); Globulin 2.8 g/dL (1.3-4.6); Glomerular Filtration Rate 47.6 mL/min (90-130); Glucose 120 mg/dL (65-115); Magnesium 2.3 mg/dL (1.7-2.3); Osmolality Calculated 295 mOsm/kg (285-295); Phosphorus 4.5 mg/dL (2.5-4.5); Sodium 136 mmol/L (136-145); Total Bilirubin 2.5 mg/dL (0.15-1.2)
[2020-07-23 06:05] LABS: Anion Gap 18.3 (5-19); Potassium 5.3 mmol/L (3.5-5.1)
[2020-07-23 06:06] LABS: Aspartate Amino Transferase 46 U/L (0-40)
[2020-07-23] MEDS: clopidogrel 75 mg Tablet PO (06:10)
[2020-07-23] MEDS: FUROsemide 10 mg/mL SDV 4mL 40 MG IVP (06:10)
[2020-07-23] MEDS: aspirin 81 mg EC Tablet PO (06:10)
[2020-07-23] MEDS: sucralfate 1 gm Tablet PO ×4 (06:12→20:32)
[2020-07-23] MEDS: enoxaparin 80 mg/0.8 mL Syringe 70 MG SUBCUT ×2 (08:05→20:32)
[2020-07-23] MEDS: sertraline 50 mg Tablet 25 MG PO (08:06)
--- NOTE | 2020-07-23 10:30 | PM.PN ---
Subjective Subjective: Interval history: On examination today morning patient feeling a lot better. He is lying comfortably in bed with mean arterial pressure of 67 though systolic blood pressure is in the high 80s. Patient states he does not have any further epigastric pain or GI upset. He states his breathing is a lot better. Denies any nausea vomiting, headache. States appetite is better. Again seen later in the day and having his lunch. States he continues to feel better now. Vitals/I&O/Wt Last Vital Signs Temp 98.2 F 07/23/20 09:00 Pulse 65 07/23/20 10:00 Resp 21 H 07/23/20 10:00 BP 80/56 07/23/20 10:00 Pulse Ox 92 07/23/20 10:00 07/22/20 07/23/20 07/23/20 22:59 06:59 14:59 Intake Total 532 / 892 50 / 942 360 / 360 Output Total 100 / 680 250 / 930 900 / 900 Balance 432 / 212 -200 / 12 -540 / -540 Weight last 48 hrs Weight 73.301 kg Weight 73.301 kg Weight 73.964 kg Weight 70.307 kg Physical Exam Narrative: EXAM NARRATIVE: Pleasant middle-age male currently sitting comfortably in his bed Rhythm is new which is irregular atrial fibrillation with RVR no active chest pain or shortness of breath saturating well on room air S1, S2 variable with active signs of heart failure Abdomen soft, bloated nontender Lower extremity no edema noted Bilateral breath sounds without respiratory distress Appropriate mood and affect Complete right hemianopsia No new neurological deficit EOMI, PERRLA GCS 15 Awake alert oriented x3 No joint swelling or skin changes Urinary Catheter Management^: Sánchez: Cath Placed During This Visit: yes Reason for Continuing Indwelling Catheter: Accurate Measurement of Urinary Output in Critically Ill Patients Urinary Catheter Date of Insertion: 07/22/20 Urinary Catheter Time of Insertion: 17:44 Data : 07/23/20 05:01 07/23/20 05:01 Micro: Microbiology 07/22/20 14:45 Stool Lactoferrin - Final Stool Occult Blood (FIT) - Final A&P Assessment and plan (1) Pulmonary embolism: Status: Acute (2) New onset atrial fibrillation: Status: Acute (3) Acute exacerbation of CHF (congestive heart failure): Status: Acute (4) Coronary artery disease: Status: Acute (5) Cardiogenic shock: Status: Acute (6) BUDDY (acute kidney injury): Status: Acute Additional A&P Information CAD: Patient has a history of PCI to LAD from non-ST elevation CT in October 2019. Noncompliant with medications. No active chest pain. Continue with aspirin, Plavix, statin, full dose Lovenox.. Cardiogenic shock: Relative. Patient having symptoms of cardiogenic shock. He gets diaphoretic on standing up along with nausea, vomiting and epigastric pain and diarrheal bowel movements on minimal physical activity even as an outpatient. Continue dobutamine at 5. Start patient on Levophed and maintaining 2 mics per hour. Keep mean artery pressure over 65. Acute on chronic congestive heart failure: Echocardiogram done today shows EF of 10 to 15% which is new as compared to 30% last year with severe global LV hypokinesia, grade 3 diastolic dysfunction, severely dilated LV, biatrial enlargement, mild to moderate MR, mild TR, moderate pulmonary hypertension. Patient is more euvolemic now. Net negative in last 24 hours. With creatinine mildly going up and patient looking euvolemic we will hold off on further diuresis for now. Continue with fluid restriction up to 1500 cc Strict input output charting. Daily weights. For now hold off on lisinopril, spironolactone, beta-hema. Monitor magnesium, calcium. Patient has a high risk of ventricular arrhythmias. EKG done today has a normal QTC. We will continue to monitor. New pulmonary embolism: Without right heart strain. Subsegmental right side. Continue with full dose Lovenox 1 mg KG body weight every 12 hourly. Venous Doppler results appreciated. Appreciate cardiology recommendations. Plan for a possible left heart cath and a right heart cath in next few days if patient stabilizes continues to improve. BUDDY: Most likely secondary to cardiogenic shock. Creatinine 1.5 today. Baseline creatinine around 1.1. Hold off any further diuresis for now. Continue with dobutamine and Levophed for now. We will repeat BMP in afternoon. Hyperkalemia: Treat with insulin 10 units and D50. Repeat BMP. Counseled regarding smoking cessation. Can use nicotine patch as needed. Possible UTI: Patient denies any symptoms of UTI. White count mildly elevated today could be secondary to stress response of cardiogenic shock. Overnight started on ceftriaxone. For now we will continue with ceftriaxone current dose. Check blood culture and urine culture. We will continue to monitor culture results and will de-escalate antibiotics if patient remains afebrile and neck 24 hours. DNR/DNI- Code status discussed again with patient with mother at bedside. Cardiac diet. Full dose Lovenox will also for DVT prophylaxis. Move patient to ICU for cardiogenic shock requiring dobutamine drip. Guarded prognosis. Attestations Medical Necessity Statement*: Patient requires further hospitalization for management of cardiogenic shock and coronary artery disease in setting of severe LV dysfunction with EF of 10 to 15%. Critical Care Time: Critical Care Time (min): 80 Coding Level of Care Code Acute Family Services Coordinator for Chg Fwd Diagnoses Pulmonary embolism I26.99 New onset atrial fibrillation I48.91 Acute exacerbation of CHF (congestive heart failure) I50.9 Coronary artery disease I25.10 Cardiogenic shock R57.0 BUDDY (acute kidney injury) N17.9
[2020-07-23] MEDS: dextrose 50% syringe 50 mL IVP (10:32)
[2020-07-23] MEDS: insulin regular-human 10 UNIT in SYRINGE 1 EACH IVP (10:39)
--- NOTE | 2020-07-23 15:38 | PM.PN ---
Subjective Subjective: Interval history: Patient was transferred to ICU last night. He was started on dobutamine drip. He has started feeling much better today. Says his abdominal pain is also improved. No chest discomfort. Shortness of breath has improved. His renal function has worsened and creatinine is 1.5 today. He has been started on Levophed as blood pressure was low. Vitals/I&O/Wt Last Vital Signs Temp 98.2 F 07/23/20 09:00 Pulse 74 07/23/20 14:00 Resp 21 H 07/23/20 14:00 BP 84/54 07/23/20 14:00 Pulse Ox 98 07/23/20 14:00 07/23/20 07/23/20 07/23/20 06:59 14:59 22:59 Intake Total 50 / 942 700.1 / 700.1 Output Total 250 / 930 1300 / 1300 Balance -200 / 12 -599.9 / -599.9 Weight last 48 hrs Weight 161 lb 9.6 oz Weight 161 lb 9.6 oz Weight 163 lb 1 oz Weight 155 lb Physical Exam Narrative: EXAM NARRATIVE: GENERAL: Patient is alert, awake and oriented x3. [] NECK: No jugular vein distension. [] HEENT: No cyanosis. No icterus. No pallor. [] HEART: Regular S1 and S2. No murmur, rub or gallop. [] LUNGS: Bilateral crackles. ABDOMEN: Soft, nontender and nondistended. Positive bowel sounds. No guarding, rebound or tenderness. [] CENTRAL NERVOUS SYSTEM: Grossly nonfocal. [] EXTREMITIES: Warm extremities today. Lower extremities with 1+ edema bilaterally. Pulses palpable in the lower extremities, both dorsalis pedis and posterior tibial. [] Urinary Catheter Management^: Sánchez: Cath Placed During This Visit: yes Reason for Continuing Indwelling Catheter: Accurate Measurement of Urinary Output in Critically Ill Patients Urinary Catheter Date of Insertion: 07/22/20 Urinary Catheter Time of Insertion: 17:44 Data : 07/23/20 05:01 07/23/20 05:01 Micro: Microbiology 07/22/20 14:45 Stool Lactoferrin - Final Stool Enteric Pathogens (PCR) - Final Parasite Antigen Panel - Final C.difficile Toxin B Gene (PCR) - Final Occult Blood (FIT) - Final 07/23/20 11:06 Blood Culture - Preliminary Blood SPECIMEN COLLECTED 07/23/20 11:00 Blood Culture - Preliminary Blood SPECIMEN COLLECTED A&P Assessment and plan (1) Cardiogenic shock: Status: Acute (2) New onset atrial fibrillation: Status: Acute (3) Acute exacerbation of CHF (congestive heart failure): Status: Acute (4) Pulmonary embolism: Status: Acute (5) Coronary artery disease: Status: Acute Patient is in shock. Likely cardiogenic as has newly depressed LV systolic function. Given the increased WBC count, will have to rule out sepsis. His LV EF has dropped significantly compared with last year and is 10-15% now. Since starting on dobutamine drip, patient is feeling better. Uptitrate as needed. Add Levophed to maintain MAPs Hold negative inotropic agents. Creatinine worsened today. We will down titrate Lasix for today. Anticoagulation with Lovenox We will assess creatinine in the morning tomorrow and if starts to improve we will plan on right and left heart cath Thank you for involving us with care of this patient. We will continue to follow. Please call with question Attestations Medical Necessity Statement*: Care expected to cross 2 midnights. Coding Level of Care Code Acute Inspector Toys for Naun Benoit Diagnoses Cardiogenic shock R57.0 New onset atrial fibrillation I48.91 Acute exacerbation of CHF (congestive heart failure) I50.9 Pulmonary embolism I26.99 Coronary artery disease I25.10
[2020-07-23] MEDS: DOBUTamine drip 500 MG/250 ML PREMIX 11.1 MG IV (15:54)
[2020-07-23 17:54] LABS: Anion Gap 17.1 (5-19); Blood Urea Nitrogen 45 mg/dL (8-23); Calcium 8.8 mg/dL (8.5-10.5); Carbon Dioxide 24 mmol/L (22-29); Chloride 101 mmol/L (98-107); Glomerular Filtration Rate 47.6 mL/min (90-130); Glucose 171 mg/dL (65-115); Osmolality Calculated 302 mOsm/kg (285-295); Potassium 4.1 mmol/L (3.5-5.1); Sodium 138 mmol/L (136-145)
[2020-07-23] MEDS: atorvastatin 40 mg Tablet PO (20:32)
[2020-07-24] VITALS (48 sets, daily range): BP systolic 84–127; BP diastolic 61–100; PULSE 70–120; RESP 3–39; TEMP 35.8–36.9; O2SAT 88–99
--- NOTE | 2020-07-24 02:33 | PC.NURSE ---
Patient very confused and agitated at shift change, because he was tangled up in all his cords in his room This nurse and Irene RN from dayshift went and assessed patient and de-escalated patients agitation. Patient calmed down and is resting in bed in room at this time.
--- NOTE | 2020-07-24 02:34 | PC.NURSE ---
Patient prepped and ready for cardiac cath tomorrow if lab levels remain stable and WNL. Consent in signed and in chart, and patient is prepped for procedure.
[2020-07-24] MEDS: famotidine 20 mg/2 mL INJ IVP ×2 (03:13→15:24)
[2020-07-24 04:33] LABS: Basophils # 0.1 10^3/uL (0.0-0.1); Basophils % 0.7 %; Eosinophils # 0.2 10^3/uL (0.0-0.8); Eosinophils % 1.5 %; Hematocrit 44.4 % (42.0-52.0); Hemoglobin 14.2 g/dL (11.7-16.6); Lymphocytes # 1.8 10^3/uL (0.8-4.8); Lymphocytes % 12.8 %; Mean Corpuscular Hemoglobin 29.6 pg (28.0-34.0); Mean Corpuscular Volume 92.5 fL (80-94); Mean Platelet Volume 11.1 fL (7.4-10.4); Monocytes # 1.2 10^3/uL (0.2-0.9); Monocytes % 8.4 %; Neutrophils % 76.1 %; Nucleated Red Blood Cells % 0 %; Platelet Count 259 10^3/cmm (130-400); Red Cell Distribution Width 13.5 % (12.1-15.1); White Blood Count 13.7 10^3/uL (4.0-10.0)
[2020-07-24 04:58] LABS: Alanine Aminotransferase 54 U/L (0-41); Albumin Level 3.3 g/dL (3.5-5.2); Alkaline Phosphatase 108 IU/L (40-130); Blood Urea Nitrogen 49 mg/dL (8-23); Calcium 8.4 mg/dL (8.5-10.5); Carbon Dioxide 26 mmol/L (22-29); Chloride 103 mmol/L (98-107); Glomerular Filtration Rate 47.6 mL/min (90-130); Glucose 105 mg/dL (65-115); Osmolality Calculated 303 mOsm/kg (285-295); Sodium 140 mmol/L (136-145); Total Bilirubin 0.9 mg/dL (0.15-1.2); Total Protein 6.3 g/dL (6.6-8.7)
[2020-07-24 05:14] LABS: Anion Gap 15.6 (5-19); Aspartate Amino Transferase 40 U/L (0-40); Potassium 4.6 mmol/L (3.5-5.1)
--- NOTE | 2020-07-24 06:02 | PC.NURSE ---
NEW ORDER: Called Dr. Lizarraga to update him on patients condition and lab values. Creatinine still at 1.5, Dr. Lizarraga gave telephone orders to schedule Right and Left heart cath for 0800 today. Called Legal Clerk Naomi KEYES to schedule on surgical board. Orders for Diphehydramine 50mg one time at 0700, and NS IV Fluids to run at 50mL per hour to be started at 0700 also received and entered per protocol and Dr. Camara orders. Continue care.
[2020-07-24] MEDS: sodium chloride 0.9% 1,000 ML 50 ML IV (06:28)
[2020-07-24] MEDS: aspirin 81 mg EC Tablet PO (06:29)
[2020-07-24] MEDS: clopidogrel 75 mg Tablet PO (06:29)
[2020-07-24] MEDS: sucralfate 1 gm Tablet PO ×4 (06:29→20:02)
[2020-07-24] MEDS: diphenhydrAMINE 50 mg Capsule PO (06:54)
--- NOTE | 2020-07-24 07:10 | XACV_ITS ---
Exam Room: [facility] Ht: 173 cm Wt: 73 kg BSA: 1.88 m2 Gender: Male : 1960 Any Known Allergies: No known allergies Exam Priority: Routine Procedure(s): Procedure Description: Diagnostic procedure Procedure Description: Left Heart Catheterization Procedure Description: Right Heart Catheterization Procedure Description: O2 saturation Procedure Description: Coronary Angiography Diagnostic Cath Status: Urgent Diagnostic Findings * No significant disease noted in the Left Main, LAD, Circumflex, or RCA coronary arteries. LAD has mid vessel stent that is patent.. * Right heart cath findings: RA pressure: 19/16(15) mmHg RV pressure: 54/20(15) mmHg PA pressure: 77/38(46) mmHg PCW: 35/32(28) mmHg LVEDP 28 mmHg PA saturation: 47.9% Ao saturation 77.4% Cardiac output by Alvarado 4.1 L/min Cardiac index by Alvarado: 2.2 L/min/m2 . * Coronary angiography shows right dominance. Conclusions 1. No significant disease noted in the Left Main, LAD, Circumflex, or RCA coronary arteries. Prior stent is patent.. 2. Significantly elevated right and left-sided cardiac pressures. Borderline cardiac index by Alvarado. This was on dobutamine. Severe, mixed pulmonary hypertension. Recommendations * Patient will need further diuresis his right and left-sided cardiac pressures are severely elevated. * He is likely in cardiogenic shock as his cardiac index is borderline even on dobutamine. * Nonischemic cardiomyopathy. * Consideration for LifeVest/ICD on discharge. Diagnostic RX Recommendation: medical therapy and/or counseling Pressures Phase:Rest AO : 105 / 72 ( 87 ) @ 3:11:00 AM 118 / 84 ( 96 ) @ 3:17:00 AM LV : 119 / 18 / @ 3:17:00 AM RV : 54 / 20 / @ 3:04:00 AM PA : 77 / 38 ( 46 ) @ 3:01:00 AM RA : a wave = v wave = mean = 15 @ 3:04:00 AM O2 Content Phase:Rest PA : O2 Content O2: 47.9 @ 3:11:00 AM Saturations Phase:Rest AO : 77 @ 3:17:00 AM PA : 48 @ 3:11:00 AM Cardiac Output Phase:Rest Alvarado : 5 @ 3:11:00 AM Alvarado Cardiac Index: 3 @ 3:11:00 AM Clinical Evaluation EBL: 5mL-10mL Procedural Details Procedure Consent Obtained. Pre-Procedure Time Out. Identified patient by full name and date of as verbalized by the patient/guarantor. Does the consent match the physician's order: Yes. Accurate & Complete Informed Consent: Yes. Inpatient/Outpatient History & Physical on Chart: Yes. If H&P is completed, is and addenduem needed: No; If yes, is the addendum complete: N/A. Visualize and Verify Site with Patient/Guarantor: N/A. Relevant Radiology Images available: N/A. Pre-op teaching completed and patient verbalized understanding. The risks, benefits, and alternatives of sedation and/or procedure were discussed by physician. The patient agrees to continue. Procedure started. Cardiovascular Instability: No. Correct patient, site and procedure confirmed by cath team. PERRLA. Strong, equal hand inspector elevators bilaterally. Lungs clear x 5 lobes. IV Site on Arrival: 18 gauge in the right forearm. IV Site on Arrival: 20 gauge in the right anticubital. IV Fluids: 0.9% NaCl at KVO. 0 mL infused prior to lift slab operator. Pre Procedural Pulses: bilateral radial was 3+. Pre Procedural Pulses: bilateral dorsalis pedis was Doppled. Pre Procedural Pulses: bilateral posterior tibial was Doppled. bilateral groins was prepped with chloroprep then draped in the usual sterile fashion. right radial was prepped with chloroprep then draped in the usual sterile fashion. right brachial was prepped with chloroprep then draped in the usual sterile fashion. Baseline sample Acquired. HR: 137 BPM. Equipment: 6F - Radial. Physician arrived. Physician scrubbed in. Immediate Pre-Procedure Time Out. Correct Patient: Yes; Correct Procedure: Yes; Correct Site: Yes; Correct Patient Position: Yes; Correct Supplies: Yes; Dried Flammable Prep: Yes; Blood Products Available: N/A;. Wire inserted through IV catheter in right brachial vein. Lidocaine 1% infiltrated to the right brachial. IV catheter removed over wire. Ona-Trini MON catheter inserted. BMW wire inserted through SWAN catheter. BMW wire and SWAN catheter removed. Unable to advance SWAN catheter using brachial vein access. Physician moving to femoral approach. Lidocaine 1% infiltrated to the right groin. Cardiac Cath Pack. SIMTEK Manifold Kit Model BT 2000. Heparinized Saline (2 units/mL), 1000 mL bag. Venous access obtained with a micropuncture set. Ona-Trini MON catheter inserted. SWAN wire inserted. Wire out. Ona-Trini out. Lidocaine 1% infiltrated to the right radial. Arterial access obtained. A 5 slovak TIG catheter in over wire. Multiple views taken of left coronary artery. Catheter redirected to the RCA. Multiple views taken of right coronary artery. Placed patient on oxygen at 3 lpm. EDP Sample taken: LV 119/18,28; HR: 163 BPM; SpO2: 90%. Pullback taken: LV Off; AO Off; Mean: , Peak to Peak: , SEP: ; HR: 175 BPM; SpO2: 88%. Catheter out. Physician scrubbed out. A Manual Compression was successful obtaining hemostatsis at the Right Brachial Vein insertion site. A Suture was successful obtaining hemostatsis at the Right Femoral vein insertion site. A TR Band was successful obtaining hemostatsis at the Right Radial artery insertion site. TR band placed. Hemostasis obtained. Brachial Sheath(s) removed and manual pressure held until hemostasis was achieved. Sterile 4x4 and Op-site applied to the puncture site. No oozing or hematoma noted. Post sheath removal instructions were given and the patient verbalized understanding. Femoral Sheath(s) sutured into position with 2-0 silk and sterile 4x4's and Op-site applied over the site. No oozing or signs and symptoms of hematoma noted. Venous sheath flushed and connected to 0.9% NaCl with extension tubing. Post Procedure: Pulses reassessed and unchanged. PERRLA. Strong, equal hand inspector elevators bilaterally. No VTE prophylaxis required. Complications: none. Medication's Wasted: Lidocaine 1% = 4 mL. Medication's Wasted: Nitro = 49.9 mg. Medication's Wasted: Heparin = 1000 units. Total IV fluids: 50 mL. Contrast type used: Omnipaque 300 mgI/mL, 500 mL bottle. Estimated blood loss: 5mL-10mL. Post-op diagnosis: patent stent. Procedure completed. Patient transferred by bed to ICU. Vital chart was stopped. Access Site Site: Right Brachial Vein Sheath Size: 6 Fr Hemostasis Method: Manual Compression Hemostasis Success: Successful Site: Right Femoral vein Sheath Size: 6 Fr Hemostasis Method: Suture Hemostasis Success: Successful Site: Right Radial artery Sheath Size: 6 Fr Hemostasis Method: TR Band Hemostasis Success: Successful Procedure Medications Start: 8:31 AM Stop: 8:31 AM Medication: Versed Amount: 1 mg Route: I.V. Start: 8:31 AM Stop: 8:31 AM Medication: Fentanyl Amount: 50 mcg Route: I.V. Start: 8:41 AM Stop: 8:41 AM Medication: Versed Amount: 1 mg Route: I.V. Start: 8:45 AM Stop: 8:45 AM Medication: Fentanyl Amount: 25 mcg Route: I.V. Start: 9:06 AM Stop: 9:06 AM Medication: Fentanyl Amount: 25 mcg Route: I.V. Start: 9:09 AM Stop: 9:09 AM Medication: Nitrogylcerin Amount: 100 mcg Route: I.A. Start: 9:10 AM Stop: 9:10 AM Medication: Heparin Amount: 5000 units Route: I.V. I, the attending physician, have reviewed and verified all procedure medications. Yes, all medications given per verbal order History/Risk Factors Hypertension: Yes Dyslipidemia: No Peripheral Arterial Disease (PAD): No Myocardial Infarction (AL): No Obesity: No Renal Disease: No Tobacco Use: Current/Recent(w/in 1 year) Prior Interventions PCI: Yes CABG: No Valve Surgery: No Report Signatures Finalized by Quinn Lizarraga MD on 08/01/2020 11:24 AM
[2020-07-24] MEDS: phenazopyridine 100 mg Tablet PO ×3 (07:48→17:44)
--- NOTE | 2020-07-24 08:15 | PC.NURSE ---
Pt to orthodontic lab technician. New IV inserted to right AC, #20.
--- NOTE | 2020-07-24 08:30 | W.PM.OPSUD ---
Surgery/Procedure H&P Update DATE OF PROCEDURE: July 24, 2020 DATE H&P PERFORMED: 07/22/20 H&P UPDATE INFORMATION: I have reviewed H&P completed within last 30 days, I have examined patient prior to procedure and No changes to prior documentation PREOP DIAGNOSIS: Acute heart failure with reduced EF PRIMARY INDICATION FOR PROCEDURE: Acute heart failure with reduced EF PLANNED PROCEDURE: Operation Date: 07/24/20 08:00 Proposed Procedures p Cardiac Catheterization(Bilateral) - Quinn Lizarraga M.D Possible percutaneous coronary intervention PATIENT REASSESSED PRIOR TO SEDATION, WITH NO CHANGE NOTED: Yes PHYSICAL EXAM: alert and oriented x 3 AIRWAY EVAL/ANESTHESIA PLAN: normal airway, see other exam findings, Risks, benefits & alternatives of sedation and/or procedure discussed and Patient agrees to continue as planned
--- NOTE | 2020-07-24 09:45 | PC.NURSE ---
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 TR band right wrist intact. Pressure dressing noted right brachial area. Sheath in gright groin. No hematoma noted on an of the three areas. Radial and dorsalis pedal pulses present. Per Graciela RN Cath pab, to pull sheath in 2 hours, PTT not needed. Awaiting new orders fro Dr. Lizarraga in [facility].
--- NOTE | 2020-07-24 10:16 | PM.PN ---
Subjective Subjective: Interval history: Patient underwent right and left heart cath today. His LAD stent is patent. No obstructive coronary artery disease noted. Right heart cath revealed elevated right and left sided cardiac pressures and low cardiac index consistent with cardiogenic shock Vitals/I&O/Wt Last Vital Signs Temp 97.5 F L 07/24/20 07:30 Pulse 104 H 07/24/20 07:30 Resp 26 H 07/24/20 07:30 BP 123/100 07/24/20 08:00 Pulse Ox 97 07/24/20 07:30 07/23/20 07/24/20 07/24/20 22:59 06:59 14:59 Intake Total 350 / 1050.1 Output Total 0 / 1300 900 / 2200 250 / 250 Balance 350 / -249.9 -900 / -1149.9 -220 / -220 Weight last 48 hrs Weight 161 lb 9.6 oz Weight 161 lb 9.6 oz Physical Exam Narrative: EXAM NARRATIVE: GENERAL: Patient is alert, awake and oriented x3. [] NECK: No jugular vein distension. [] HEENT: No cyanosis. No icterus. No pallor. [] HEART: Regular S1 and S2. No murmur, rub or gallop. [] LUNGS: Bilateral crackles. ABDOMEN: Soft, nontender and nondistended. Positive bowel sounds. No guarding, rebound or tenderness. [] CENTRAL NERVOUS SYSTEM: Grossly nonfocal. [] EXTREMITIES: Warm extremities today. Lower extremities with 1+ edema bilaterally. Pulses palpable in the lower extremities, both dorsalis pedis and posterior tibial. [] Urinary Catheter Management^: Sánchez: Cath Placed During This Visit: yes Reason for Continuing Indwelling Catheter: Accurate Measurement of Urinary Output in Critically Ill Patients Urinary Catheter Date of Insertion: 07/22/20 Urinary Catheter Time of Insertion: 17:44 Data : 07/24/20 03:21 07/24/20 03:27 Micro: Microbiology 07/22/20 20:53 Urine Culture - Preliminary Urine Catheterized 07/22/20 14:45 Stool Lactoferrin - Final Stool Enteric Pathogens (PCR) - Final Parasite Antigen Panel - Final C.difficile Toxin B Gene (PCR) - Final Occult Blood (FIT) - Final 07/23/20 11:06 Blood Culture - Preliminary Blood SPECIMEN COLLECTED 07/23/20 11:00 Blood Culture - Preliminary Blood SPECIMEN COLLECTED A&P Assessment and plan (1) Cardiogenic shock: Status: Acute (2) New onset atrial fibrillation: Status: Acute (3) Acute exacerbation of CHF (congestive heart failure): Status: Acute (4) Pulmonary embolism: Status: Acute (5) Coronary artery disease: Status: Acute Patient underwent right and left heart cath today that revealed no obstructive coronary artery disease, elevated right and left sided cardiac pressures and reduced cardiac index even on dobutamine. His LV EF has dropped significantly compared with last year and is 10-15% now. Non-ischemic cardiomyopathy. Continue dobutamine and levophed Hold negative inotropic agents. Continue diuresis with IV lasix Anticoagulation with Lovenox Thank you for involving us with care of this patient. We will continue to follow. Please call with question Attestations Medical Necessity Statement*: Care expeced to cross 2 midnights Coding Level of Care Code Acute Neurological Surgery Teacher for [facility] Diagnoses Cardiogenic shock R57.0 New onset atrial fibrillation I48.91 Acute exacerbation of CHF (congestive heart failure) I50.9 Pulmonary embolism I26.99 Coronary artery disease I25.10
--- NOTE | 2020-07-24 10:48 | P.PN_ITS ---
Subjective Subjective: Interval history: On examination patient states he is feeling a lot better. He seems a lot more comfortable. Saturating well on room air. Systolic and mean arterial pressures are a lot better. He is still on dobutamine of 5 and Levophed of 2. Today morning patient underwent cardiac angiogram which showed patent stent and elevated cardiac pressures consistent with congestive heart failure. Documented urine output in last 24 hours of 2200 cc. Vitals/I&O/Wt Last Vital Signs Temp 97.5 F L 07/24/20 07:30 Pulse 99 07/24/20 10:44 Resp 6 L 07/24/20 10:44 BP 118/92 07/24/20 10:44 Pulse Ox 96 07/24/20 10:44 07/23/20 07/24/20 07/24/20 22:59 06:59 14:59 Intake Total 350 / 1050.1 Output Total 0 / 1300 900 / 2200 250 / 250 Balance 350 / -249.9 -900 / -1149.9 -220 / -220 Weight last 48 hrs Weight 73.301 kg Weight 73.301 kg Physical Exam Narrative: EXAM NARRATIVE: General: No acute distress, AO x3, periphery well perfused HEENT: PERRLA, pupils bilaterally equal and reactive Chest: Normal vesicular breath sounds, no added sounds, equal good air entry bilaterally CVS: S1-S2 irregularly irregular, pansystolic murmur at apex of variable intensity, S3 gallop present, Abdomen: Soft, nontender, no organomegaly, bowel sounds present Neuro: No focal deficits, no facial deformity, AO x3, power 5/5 in all limbs Urinary Catheter Management^: Sánchez: Cath Placed During This Visit: yes Reason for Continuing Indwelling Catheter: Accurate Measurement of Urinary Output in Critically Ill Patients Urinary Catheter Date of Insertion: 07/22/20 Urinary Catheter Time of Insertion: 17:44 Data : 07/24/20 03:21 07/24/20 03:27 Micro: Microbiology 07/22/20 20:53 Urine Culture - Preliminary Urine Catheterized 07/22/20 14:45 Stool Lactoferrin - Final Stool Enteric Pathogens (PCR) - Final Parasite Antigen Panel - Final C.difficile Toxin B Gene (PCR) - Final Occult Blood (FIT) - Final 07/23/20 11:06 Blood Culture - Preliminary Blood SPECIMEN COLLECTED 07/23/20 11:00 Blood Culture - Preliminary Blood SPECIMEN COLLECTED A&P Assessment and plan (1) Pulmonary embolism: Status: Acute (2) New onset atrial fibrillation: Status: Acute (3) Acute exacerbation of CHF (congestive heart failure): Status: Acute (4) Coronary artery disease: Status: Acute (5) Cardiogenic shock: Status: Acute (6) BUDDY (acute kidney injury): Status: Acute Additional A&P Information CAD: Patient has a history of PCI to LAD from non-ST elevation [place] in October 2019. Noncompliant with medications. No active chest pain. Cardiac angiogram done on July 24 consistent with patent stent. Continue with aspirin, Plavix, statin, full dose Lovenox.. Cardiogenic shock: Resolving. Patient having symptoms of cardiogenic shock. He gets diaphoretic on standing up along with nausea, vomiting and epigastric pain and diarrheal bowel movements on minimal physical activity even as an outpatient. Continue with nontitratable dobutamine at 5 and Levophed at 2 for now. Stop Levophed if patient having frequent VPCs or tachycardia. Maintain mean arterial pressure over 65. Acute on chronic congestive heart failure: Echocardiogram done today shows EF of 10 to 15% which is new as compared to 30% last year with severe global LV hypokinesia, grade 3 diastolic dysfunction, severely dilated LV, biatrial enlargement, mild to moderate MR, mild TR, moderate pulmonary hypertension. Given the intracath cardiac pressures continue patient on Lasix 40 mg IV twice daily. Target net negative of 1 L in next 24 hours. Currently patient on 500 cc negative since admission. Continue with fluid restriction up to 1500 cc Strict input output charting. Daily weights. For now hold off on lisinopril, spironolactone, beta-hema due to softer blood pressures. Monitor magnesium, calcium. Patient has a high risk of ventricular arrhythmias. EKG done today has a normal QTC. We will continue to monitor. New pulmonary embolism: Without right heart strain. Subsegmental right side. Continue with full dose Lovenox 1 mg KG body weight every 12 hourly. Venous Doppler results appreciated. Appreciate cardiology recommendations. BUDDY: Most likely secondary to cardiogenic shock. Creatinine stable 1.5 today. Baseline creatinine around 1.1. Patient had CT on admission with cardio angiogram today. Start Lasix from evening dose. Continue with dobutamine and Levophed for now. We will repeat BMP in afternoon. Hyperkalemia: Resolved. Repeat BMP. Counseled regarding smoking cessation. Can use nicotine patch as needed. Possible UTI: Patient denies any symptoms of UTI. White count mildly elevated today could be secondary to stress response of cardiogenic shock. Overnight started on ceftriaxone. For now we will continue with ceftriaxone current dose. Check blood culture and urine culture. We will continue to monitor culture results and will de-escalate antibiotics if patient remains afebrile and neck 24 hours. DNR/DNI- Code status discussed again with patient with mother at bedside. Cardiac diet. Full dose Lovenox will also for DVT prophylaxis. Guarded prognosis. Patient's care plan and severely guarded prognosis discussed in detail with both patient and his mother at bedside. All the questions were answered. Attestations Medical Necessity Statement*: Patient requires further hospitalization for management of cardiogenic shock with congestive heart failure in setting of severely reduced EF, acute kidney injury and acute pulmonary embolism. Critical Care Time: Critical Care Time (min): 80 Coding Level of Care Code Acute Section Supervisor for [facility] Fwd Diagnoses Pulmonary embolism I26.99 New onset atrial fibrillation I48.91 Acute exacerbation of CHF (congestive heart failure) I50.9 Coronary artery disease I25.10 Cardiogenic shock R57.0 BUDDY (acute kidney injury) N17.9
--- NOTE | 2020-07-24 11:55 | PC.NURSE ---
New orders from Dr Lizarraga noted. Addresses TR removal. No orders for Sheath removal and time length for bedrest, orders for fentanyl for sheath removal noted. Will proceed with sheath removal after pt done eating.
--- NOTE | 2020-07-24 12:04 | PC.NURSE ---
Tr band removal process started . Pt tolerating well.
[2020-07-24] MEDS: fentaNYL 50 mcg/mL INJ 2mL IVP (13:10)
--- NOTE | 2020-07-24 13:35 | PC.NURSE ---
TR band removed. No hemotomas or bleeding noted. Biocclusive dressing applied. Pt tolerated well.
--- NOTE | 2020-07-24 14:05 | PC.NURSE ---
Right groin sheath removed after removing stitch. Pressure held until hemostasis obtained. No hematomas or bleeding noted. Pt tolerated well. Pt instructed to keep leg still and lie flat.
[2020-07-24] MEDS: DOBUTamine drip 500 MG/250 ML PREMIX 11.1 MG IV (15:24)
[2020-07-24] MEDS: FUROsemide 10 mg/mL SDV 4mL 40 MG IVP (17:44)
--- NOTE | 2020-07-24 19:15 | PC.NURSE ---
shift summary: Pt alert and oriented. A very pleasant man. Went to physical laboratory assistant, no interventions done. RIght wrist, right brachial and right groin unremarkable, no bleeding or hematoma. Pt tolerated sheath removal well. He is off bedrest. He has an excellent appetite. Dobutamine infusing at 5mcg/kg/min and Levophed at 2mcg/min, both are set rates: no titration. an occasional PVC noted in sinus heart rhythm. Lasix admin this evening. Total urine output for day shift 1600. Urine is orange and clear. Pyridium admin TID as ordered.
--- NOTE | 2020-07-24 19:20 | PC.NURSE ---
Report given to WALI Liu.
[2020-07-24] MEDS: enoxaparin 80 mg/0.8 mL Syringe 70 MG SUBCUT (20:02)
[2020-07-24] MEDS: atorvastatin 40 mg Tablet PO (20:02)
[2020-07-25] VITALS (36 sets, daily range): BP systolic 79–132; BP diastolic 55–96; PULSE 61–107; RESP 11–26; TEMP 36.6–36.7; O2SAT 91–98
[2020-07-25] MEDS: famotidine 20 mg/2 mL INJ IVP ×2 (03:09→15:00)
[2020-07-25] MEDS: FUROsemide 10 mg/mL SDV 4mL 40 MG IVP ×2 (06:06→18:05)
[2020-07-25] MEDS: sucralfate 1 gm Tablet PO ×4 (06:07→20:28)
[2020-07-25] MEDS: clopidogrel 75 mg Tablet PO (06:07)
[2020-07-25] MEDS: aspirin 81 mg EC Tablet PO (06:07)
--- NOTE | 2020-07-25 08:12 | PM.PN ---
Subjective Subjective: Interval history: He reports that compared to how he was on admission he is feeling better. Denies being short of breath currently. No chest pain or pressure. States he has been urinating well, and has urinating in this morning. Vitals/I&O/Wt Last Vital Signs Temp 98.0 F 07/25/20 04:00 Pulse 61 07/25/20 06:00 Resp 18 07/25/20 06:00 BP 123/88 07/25/20 06:00 Pulse Ox 91 07/25/20 01:00 07/24/20 07/25/20 07/25/20 22:59 06:59 14:59 Intake Total 1519.17 / 2264.17 Output Total 2250 / 2850 250 / 3100 Balance -730.83 / -585.83 -250 / -835.83 Weight last 48 hrs Weight 72.575 kg Weight 73.301 kg Physical Exam Const: COMMON NORMALS: no acute distress and patient oriented x3 HENMT: COMMON NORMALS: oropharynx normal Neck/C-Spine: COMMON NORMALS: no JVD Resp: COMMON NORMALS: normal respiratory effort and clear to auscultation bilaterally AUSCULTATION: clear to auscultation bilaterally Cardio: COMMON NORMALS: no JVD and regular rhythm RHYTHM: regular rhythm GI: COMMON NORMALS: Normal to inspection, nondistended, normoactive bowel sounds present, Soft to palpation and non-tender PALPATION: Yes Soft to palpation Extremity: COMMON NORMALS: no joint enlargement GENERAL: Yes edema (trace edema) Neuro: COMMON NORMALS: patient oriented x3 and moves all extremities Skin: COMMON NORMALS: no rashes or lesions noted GENERAL SKIN EXAM: no rashes or lesions noted Urinary Catheter Management^: Sánchez: Cath Placed During This Visit: yes Reason for Continuing Indwelling Catheter: Accurate Measurement of Urinary Output in Critically Ill Patients Urinary Catheter Date of Insertion: 07/22/20 Urinary Catheter Time of Insertion: 17:44 Data : 07/24/20 03:21 07/24/20 03:27 Micro: Microbiology 07/23/20 11:06 Blood Culture - Preliminary Blood NEGATIVE TO DATE 07/23/20 11:00 Blood Culture - Preliminary Blood NEGATIVE TO DATE 07/22/20 20:53 Urine Culture - Preliminary Urine Catheterized A&P Assessment and plan (1) Cardiogenic shock: Maintain blood pressures. Mean pressure 79 mmHg this morning. Will attempt to wean down on Levophed today. Maintain mean arterial pressure above 65 mmHg. Continue dobutamine. Monitor renal output. Reassess renal function. Updated his mother. Status: Acute (2) Acute exacerbation of CHF (congestive heart failure): Continue dobutamine as above. Wean Levophed if tolerating. Continue gentle diuresis with Lasix. Fluid restriction 1500 mL. Monitor I&O. Recheck renal function. He overall is feeling better. Denies any trouble breathing. For the most part on room air since 07/24. EF of 10 to 15% which is new as compared to 30% last year with severe global LV hypokinesia, grade 3 diastolic dysfunction, severely dilated LV, biatrial enlargement, mild to moderate MR, mild TR, moderate pulmonary hypertension. Status: Acute (3) Pulmonary embolism: Lovenox. We discussed switching over to oral anticoagulation once renal function found stable. We discussed differences between DOAC versus warfarin as alternatives. Status: Acute (4) BUDDY (acute kidney injury): Recheck renal function. Dobutamine as above. Continue gentle diuresis. Monitor VIVIANE. Bilateral Eliquis of renal stones on ultrasound would explain microscopic hematuria seen on presentation. Status: Acute (5) New onset atrial fibrillation: Heart rates mostly 60s-90s. Consider addition of beta-hema once blood pressures are little bit better. Anticoagulation as above. Status: Acute (6) Coronary artery disease: Status: Acute Additional A&P Information CAD: Patient has a history of PCI to LAD from non-ST elevation [place] in October 2019. Noncompliant with medications. No active chest pain. Cardiac angiogram done on July 24 consistent with patent stent. Continue with aspirin, Plavix, statin, full dose Lovenox. Continue to encourage smoking cessation. Can use nicotine patch as needed. Possible UTI: He is having some urinary frequency, however, this is likely due to diuresis. So far no growth on urine culture. Continue Rocephin for now. Complete urine culture. DNR/DNI Cardiac diet. Full dose Lovenox Guarded prognosis. Attestations Medical Necessity Statement*: Continue admission for assessment of management of cardiogenic shock, acute CHF with severe cardiomyopathy, acute kidney injury, acute PE in the setting of underlying coronary disease. Coding Level of Care Code Acute Forging Press Lever Tender for [facility] Fwd Diagnoses Cardiogenic shock R57.0 Acute exacerbation of CHF (congestive heart failure) I50.9 Pulmonary embolism I26.99 BUDDY (acute kidney injury) N17.9 New onset atrial fibrillation I48.91 Coronary artery disease I25.10
[2020-07-25] MEDS: enoxaparin 80 mg/0.8 mL Syringe 70 MG SUBCUT ×2 (08:42→20:29)
[2020-07-25] MEDS: phenazopyridine 100 mg Tablet PO ×3 (08:42→18:05)
[2020-07-25] MEDS: cefTRIAXone 1,000 MG in sodium chloride 0.9% (plus) 50 ML 100 MG IV (08:42)
[2020-07-25] MEDS: potassium chloride ER 10 mEq Tablet PO (08:43)
[2020-07-25] MEDS: sertraline 50 mg Tablet 25 MG PO (08:43)
[2020-07-25 09:04] LABS: Alanine Aminotransferase 50 U/L (0-41); Alkaline Phosphatase 105 IU/L (40-130); Aspartate Amino Transferase 28 U/L (0-40); Blood Urea Nitrogen 33 mg/dL (8-23); Calcium 8.8 mg/dL (8.5-10.5); Carbon Dioxide 32 mmol/L (22-29); Chloride 102 mmol/L (98-107); Globulin 3.3 g/dL (1.3-4.6); Glomerular Filtration Rate 61.6 mL/min (90-130); Glucose 64 mg/dL (65-115); Osmolality Calculated 295 mOsm/kg (285-295); Sodium 140 mmol/L (136-145); Total Bilirubin 0.9 mg/dL (0.15-1.2); Total Protein 7.3 g/dL (6.6-8.7)
--- NOTE | 2020-07-25 09:23 | PC.CHAP ---
Pastoral Care Encounter/Spiritual Assessment Type of Contact [] Declined commercial credit head visit [] Patient/Family/Request visit [] Outpatient visit [] Follow-up visit [] Physician referral [] Code/Alert [x] Routine visit [] Staff referral [] Actively dying [] Patient sleeping [] Family support [] [] Out of room [] Palliative care [] [] Receiving care in room [] Pre-surgical visit [] Trauma [] Long length of stay [x] ICU visit [] Other: Relational/Emotional Strength [] Patient feels connected with others/family/visitors/staff [] Distress [] Loneliness/isolation [] Abandonment Spirituality of Patient [] Person of Marii [] Attends Gnosticist of their Marii [] Believes in Prayer [] Reads Bible or Bahai materials [] There are Spiritual issues to be addressed Jury Consultant Interventions [x] Prayer [] Active listening [] Non-anxious presence [] Spiritual/emotional support [] Crisis/trauma care [] Spiritual counseling [] Bereavement support [] Provided bereavement packet [] Provided Bible/devotional materials [] Provided toy/stuffed animal, coloring book to patient or family member [] Provided Communion [] Anointing/[place] [] Salvation [x] Completed spiritual assessment [] Other: Impact on Illness or Injury [] Angry [] Fearful [] Anxious [] Often cries [] Exhaustion [] Unable to work [] Unable to attend taoist [] Unable to walk/stand [] Unable to read [] Unable to drive [] Unable to eat/drink [] Unable to sleep [] Unable to be with family [] Patient intubated [] Other: Summary Time spent with patient
--- NOTE | 2020-07-25 10:11 | PM.PN ---
Subjective Subjective: Interval history: Patient is doing better today. Denies any complaints of chest pain, shortness of breath or palpitations. He underwent right and left heart cath yesterday which showed no obstructive coronary artery disease and he had elevated right and left-sided cardiac pressures with low cardiac index and cardiac output. Vitals/I&O/Wt Last Vital Signs Temp 98.0 F 07/25/20 04:00 Pulse 61 07/25/20 06:00 Resp 18 07/25/20 06:00 BP 123/88 07/25/20 06:00 Pulse Ox 91 07/25/20 01:00 07/24/20 07/25/20 07/25/20 22:59 06:59 14:59 Intake Total 1519.17 / 2264.17 992.98 / 992.98 Output Total 2250 / 2850 250 / 3100 1350 / 1350 Balance -730.83 / -585.83 -250 / -835.83 -357.02 / -357.02 Weight last 48 hrs Weight 160 lb Physical Exam Narrative: EXAM NARRATIVE: GENERAL: Patient is alert, awake and oriented x3. [] NECK: No jugular vein distension. [] HEENT: No cyanosis. No icterus. No pallor. [] HEART: Regular S1 and S2. No murmur, rub or gallop. [] LUNGS: Clear to auscultate bilaterally. [] ABDOMEN: Soft, nontender and nondistended. Positive bowel sounds. No guarding, rebound or tenderness. [] CENTRAL NERVOUS SYSTEM: Grossly nonfocal. [] EXTREMITIES: Lower extremities with no edema bilaterally. Pulses palpable in the lower extremities, both dorsalis pedis and posterior tibial. [] Urinary Catheter Management^: Sánchez: Cath Placed During This Visit: yes Reason for Continuing Indwelling Catheter: Accurate Measurement of Urinary Output in Critically Ill Patients Urinary Catheter Date of Insertion: 07/22/20 Urinary Catheter Time of Insertion: 17:44 Data : 07/24/20 03:21 07/25/20 08:31 Micro: Microbiology 07/23/20 11:06 Blood Culture - Preliminary Blood NEGATIVE TO DATE 07/23/20 11:00 Blood Culture - Preliminary Blood NEGATIVE TO DATE 07/22/20 20:53 Urine Culture - Preliminary Urine Catheterized A&P Assessment and plan (1) Cardiogenic shock: Status: Acute (2) New onset atrial fibrillation: Status: Acute (3) Acute exacerbation of CHF (congestive heart failure): Status: Acute (4) Pulmonary embolism: Status: Acute (5) Coronary artery disease: Status: Acute Patient underwent right and left heart cath yesterday that revealed no obstructive coronary artery disease, elevated right and left sided cardiac pressures and reduced cardiac index even on dobutamine. His LV EF has dropped significantly compared with last year and is 10-15% now. Non-ischemic cardiomyopathy. Continue dobutamine. Try weaning down Levophed. Hold negative inotropic agents. Continue diuresis with IV lasix. Creatinine has improved today. Anticoagulation with Lovenox Continue aspirin and Plavix. I had a detailed discussion with the patient regarding goals of care. He is currently DNR/DNI. I have informed patient that he will need to make a decision before discharge regarding goals of care. If he wants aggressive therapy, he will be a candidate for LifeVest and possible ICD placement. He says he will think about these issues and let us know. Thank you for involving us with care of this patient. We will continue to follow. Please call with question Attestations Medical Necessity Statement*: Care expected to cross 2 midnights for Coding Level of Care Code Acute Shoe Handler for [facility]un Benoit Diagnoses Cardiogenic shock R57.0 New onset atrial fibrillation I48.91 Acute exacerbation of CHF (congestive heart failure) I50.9 Pulmonary embolism I26.99 Coronary artery disease I25.10
[2020-07-25] MEDS: DOBUTamine drip 500 MG/250 ML PREMIX 11.1 MG IV (14:59)
[2020-07-25] MEDS: atorvastatin 40 mg Tablet PO (20:28)
[2020-07-26] VITALS (50 sets, daily range): BP systolic 97–146; BP diastolic 60–120; PULSE 61–113; RESP 8–30; TEMP 36.7; O2SAT 92–99
[2020-07-26] MEDS: acetaminophen 325 mg Tablet 650 MG PO (03:32)
[2020-07-26] MEDS: famotidine 20 mg/2 mL INJ IVP ×2 (03:33→15:14)
[2020-07-26 04:00] LABS: Basophils # 0.1 10^3/uL (0.0-0.1); Basophils % 0.8 %; Eosinophils # 0.5 10^3/uL (0.0-0.8); Eosinophils % 3.6 %; Hematocrit 45.6 % (42.0-52.0); Hemoglobin 14.6 g/dL (11.7-16.6); Lymphocytes # 1.6 10^3/uL (0.8-4.8); Lymphocytes % 12.8 %; Mean Corpuscular Hemoglobin 29.2 pg (28.0-34.0); Mean Corpuscular Volume 91.2 fL (80-94); Mean Platelet Volume 10.8 fL (7.4-10.4); Monocytes # 1.1 10^3/uL (0.2-0.9); Monocytes % 9.1 %; Neutrophils % 73.2 %; Nucleated Red Blood Cells % 0 %; Platelet Count 271 10^3/cmm (130-400); Red Cell Distribution Width 13.5 % (12.1-15.1); White Blood Count 12.4 10^3/uL (4.0-10.0)
[2020-07-26 04:20] LABS: Alanine Aminotransferase 47 U/L (0-41); Albumin Level 3.5 g/dL (3.5-5.2); Alkaline Phosphatase 100 IU/L (40-130); Anion Gap 10.1 (5-19); Aspartate Amino Transferase 29 U/L (0-40); Blood Urea Nitrogen 29 mg/dL (8-23); Calcium 8.9 mg/dL (8.5-10.5); Carbon Dioxide 33 mmol/L (22-29); Chloride 99 mmol/L (98-107); Creatinine Clr Calc Pharmacy 69.8931; Globulin 3.2 g/dL (1.3-4.6); Glomerular Filtration Rate 68.1 mL/min (90-130); Glucose 96 mg/dL (65-115); Osmolality Calculated 292 mOsm/kg (285-295); Potassium 4.1 mmol/L (3.5-5.1); Sodium 138 mmol/L (136-145); Total Bilirubin 0.7 mg/dL (0.15-1.2); Total Protein 6.7 g/dL (6.6-8.7)
--- NOTE | 2020-07-26 05:01 | PC.NURSE ---
Patient voiced complaints of right forearm pain from IV. IV red and swollen. Line discontinued and warm compress wrapped around arm for pain relief along with PRN Tylenol. Called [facility] Pharmacist to confirm interventions needed for dobutamine phlembitits/infiltration. Warm compress was recommended. IV line was removed and documented. Continue care.
[2020-07-26] MEDS: aspirin 81 mg EC Tablet PO (06:00)
[2020-07-26] MEDS: clopidogrel 75 mg Tablet PO (06:00)
[2020-07-26] MEDS: sucralfate 1 gm Tablet PO ×4 (06:00→20:02)
[2020-07-26] MEDS: FUROsemide 10 mg/mL SDV 4mL 40 MG IVP ×2 (07:57→20:02)
[2020-07-26] MEDS: potassium chloride ER 10 mEq Tablet PO (08:35)
[2020-07-26] MEDS: phenazopyridine 100 mg Tablet PO ×3 (08:35→17:35)
[2020-07-26] MEDS: sertraline 50 mg Tablet 25 MG PO (08:36)
[2020-07-26] MEDS: enoxaparin 80 mg/0.8 mL Syringe 70 MG SUBCUT (08:37)
--- NOTE | 2020-07-26 08:44 | PM.PN ---
Subjective Subjective: Interval history: He is overall doing all right, but complaining of dry mouth. He feels that he is perhaps becoming dehydrated. Denies chest pain. Says breathing is comfortable currently. Vitals/I&O/Wt Last Vital Signs Temp 98.1 F 07/25/20 21:00 Pulse 92 07/26/20 08:00 Resp 18 07/26/20 08:00 BP 117/83 07/26/20 08:00 Pulse Ox 92 07/26/20 07:55 07/25/20 07/26/20 07/26/20 22:59 06:59 14:59 Intake Total 10.197 / 1505.717 400 / 1905.717 Output Total 2100 / 4125 350 / 4475 Balance -2089.803 / -2619.283 50 / -2569.283 Weight last 48 hrs Weight 71.299 kg Weight 72.575 kg Physical Exam Const: COMMON NORMALS: no acute distress, patient oriented x3 and alert ORIENTATION/CONSCIOUSNESS: Yes awake HENMT: COMMON NORMALS: oropharynx normal Neck/C-Spine: COMMON NORMALS: no JVD Resp: COMMON NORMALS: normal respiratory effort and clear to auscultation bilaterally AUSCULTATION: clear to auscultation bilaterally Cardio: COMMON NORMALS: no JVD and regular rhythm RHYTHM: regular rhythm GI: COMMON NORMALS: Normal to inspection, nondistended, normoactive bowel sounds present, Soft to palpation and non-tender PALPATION: Yes Soft to palpation Extremity: COMMON NORMALS: no joint enlargement GENERAL: Yes edema (trace edema) Neuro: COMMON NORMALS: patient oriented x3 and moves all extremities SENSORIUM/ORIENTATION: Yes alert Skin: COMMON NORMALS: no rashes or lesions noted GENERAL SKIN EXAM: no rashes or lesions noted Urinary Catheter Management^: Sánchez: Cath Placed During This Visit: yes Reason for Continuing Indwelling Catheter: Accurate Measurement of Urinary Output in Critically Ill Patients Urinary Catheter Date of Insertion: 07/22/20 Urinary Catheter Time of Insertion: 17:44 Data : 07/26/20 03:25 07/26/20 03:25 Micro: Microbiology 07/22/20 20:53 Urine Culture - Final Urine Catheterized A&P Assessment and plan (1) Cardiogenic shock: This is shown improvement. Blood pressures have improved and he has weaned off Levophed. Continues on dobutamine currently. Discussed with patient and in detail with cardiology. We will attempt to wean down on dobutamine rate today, reassess tomorrow, and if possible with tentative goal for discontinuation tomorrow. Monitor renal function. Status: Acute (2) Acute exacerbation of CHF (congestive heart failure): Continue dobutamine as above. He is beginning to feel more dry. Discussed with cardiology. Still with noted crackles in bases for now we will continue with IV diuretics for today. Continue dobutamine with goal to try to wean by tomorrow. Continue fluid restriction. Discussed with nursing staff to provide mouth swabs, ice chips as needed. Continue gentle diuresis with Lasix. Fluid restriction 1500 mL. We discussed with him utility of fluid restriction and how it is helpful with reducing the need for diuresis going forward. Monitor I&O. Consideration is being given to whether he would be interested in setting up LifeVest and ICD going forward. Depending on his goals of care, consideration may be given to referral for cardiac transplantation as discussed with cardiology. EF of 10 to 15% which is new as compared to 30% last year with severe global LV hypokinesia, grade 3 diastolic dysfunction, severely dilated LV, biatrial enlargement, mild to moderate MR, mild TR, moderate pulmonary hypertension. Status: Acute (3) Pulmonary embolism: Lovenox. As renal function appears to have improved, so far stable, will switch to oral anticoagulation tonight. We discussed differences between DOAC versus warfarin as alternatives. Status: Acute (4) BUDDY (acute kidney injury): Improved. Continue dobutamine for today, attempt to wean. Reassess. Bilateral Eliquis of renal stones on ultrasound would explain microscopic hematuria seen on presentation. Status: Acute (5) New onset atrial fibrillation: Heart rates mostly 60s-90s. So far blood pressures have been too soft for addition of beta-hema or calcium channel blockers. For now continue to monitor. Anticoagulation as above. Status: Acute (6) Coronary artery disease: Status: Acute Additional A&P Information CAD: Patient has a history of PCI to LAD from non-ST elevation [place] in October 2019. Noncompliant with medications. No active chest pain. Cardiac angiogram done on July 24 consistent with patent stent. Continue with aspirin, Plavix, statin, full dose Lovenox. Continue to encourage smoking cessation. Can use nicotine patch as needed. Possible UTI: No growth on urine culture. Was having urinary frequency, although this appears to have improved somewhat. Continue Rocephin for now. Leukocytosis better, but still 12.4 today. If continue to improve by tomorrow consider discontinuation of antibiotic. DNR/DNI Cardiac diet. Guarded prognosis. Attestations Medical Necessity Statement*: Continue admission for assessment management of severe CHF. Coding Level of Care Code Acute Sales Broker for [facility] Fwd Exam Comprehensive Diagnoses Cardiogenic shock R57.0 Acute exacerbation of CHF (congestive heart failure) I50.9 Pulmonary embolism I26.99 BUDDY (acute kidney injury) N17.9 New onset atrial fibrillation I48.91 Coronary artery disease I25.10
[2020-07-26] MEDS: cefTRIAXone 1,000 MG in sodium chloride 0.9% (plus) 50 ML 100 MG IV (09:26)
[2020-07-26] MEDS: apixaban 5 mg Tablet 10 MG PO ×2 (09:29→20:02)
--- NOTE | 2020-07-26 09:32 | PC.CHAP ---
Pastoral Care Encounter/Spiritual Assessment Type of Contact [] Declined bleach machine operator visit [] Patient/Family/Request visit [] Outpatient visit [] Follow-up visit [] Physician referral [] Code/Alert [x] Routine visit [] Staff referral [] Actively dying [] Patient sleeping [] Family support [] [] Out of room [] Palliative care [] [] Receiving care in room [] Pre-surgical visit [] Trauma [] Long length of stay x] ICU visit [] Other: Relational/Emotional Strength [] Patient feels connected with others/family/visitors/staff [] Distress [] Loneliness/isolation [] Abandonment Spirituality of Patient [] Person of Marii [] Attends Taoist of their Marii [] Believes in Prayer [] Reads Bible or Uatsdin materials [] There are Spiritual issues to be addressed Technical Support Manager Interventions [x] Prayer [] Active listening [] Non-anxious presence [] Spiritual/emotional support [] Crisis/trauma care [] Spiritual counseling [] Bereavement support [] Provided bereavement packet [] Provided Bible/devotional materials [] Provided toy/stuffed animal, coloring book to patient or family member [] Provided Communion [] Anointing/[place] [] Salvation [x] Completed spiritual assessment [] Other: Impact on Illness or Injury [] Angry [] Fearful [] Anxious [] Often cries [] Exhaustion [] Unable to work [] Unable to attend pentecostal [] Unable to walk/stand [] Unable to read [] Unable to drive [] Unable to eat/drink [] Unable to sleep [] Unable to be with family [] Patient intubated [] Other: Summary Time spent with patient
--- NOTE | 2020-07-26 14:47 | PM.PN ---
Subjective Subjective: Interval history: Patient is feeling well. He denies any complaints of chest pain, shortness of breath or palpitations. He is diuresing well on IV Lasix. Currently on dobutamine. Vitals/I&O/Wt Last Vital Signs Temp 98.1 F 07/25/20 21:00 Pulse 70 07/26/20 14:30 Resp 21 H 07/26/20 14:30 BP 100/60 07/26/20 14:30 Pulse Ox 92 07/26/20 07:55 07/25/20 07/26/20 07/26/20 22:59 06:59 14:59 Intake Total 10.197 / 1505.717 400 / 9997.436 5221.965 / 1159.965 Output Total 2100 / 4125 350 / 4475 775 / 775 Balance -2089.803 / -2619.283 50 / -2569.283 384.965 / 384.965 Weight last 48 hrs Weight 157 lb 3 oz Weight 160 lb Physical Exam Narrative: EXAM NARRATIVE: GENERAL: Patient is alert, awake and oriented x3. [] NECK: No jugular vein distension. [] HEENT: No cyanosis. No icterus. No pallor. [] HEART: Regular S1 and S2. No murmur, rub or gallop. [] LUNGS: Clear to auscultate bilaterally. [] ABDOMEN: Soft, nontender and nondistended. Positive bowel sounds. No guarding, rebound or tenderness. [] CENTRAL NERVOUS SYSTEM: Grossly nonfocal. [] EXTREMITIES: Lower extremities with no edema bilaterally. Pulses palpable in the lower extremities, both dorsalis pedis and posterior tibial. [] Urinary Catheter Management^: Sánchez: Cath Placed During This Visit: yes Reason for Continuing Indwelling Catheter: Accurate Measurement of Urinary Output in Critically Ill Patients Urinary Catheter Date of Insertion: 07/22/20 Urinary Catheter Time of Insertion: 17:44 Data : 07/27/20 03:04 07/27/20 03:04 Micro: Microbiology 07/22/20 20:53 Urine Culture - Final Urine Catheterized A&P Assessment and plan (1) Cardiogenic shock: Status: Acute (2) New onset atrial fibrillation: Status: Acute (3) Acute exacerbation of CHF (congestive heart failure): Status: Acute (4) Pulmonary embolism: Status: Acute (5) Coronary artery disease: Status: Acute Patient underwent right and left heart cath that revealed no obstructive coronary artery disease, elevated right and left sided cardiac pressures and reduced cardiac index even on dobutamine. His LV EF has dropped significantly compared with last year and is 10-15% now. Non-ischemic cardiomyopathy. Off Levophed now. Titrate down dobutamine. Hold negative inotropic agents. Continue diuresis with IV lasix. Creatinine improving. We will switch anticoagulation to Eliquis. At time of discharge we will discontinue aspirin and continue on Eliquis and Plavix. I had a detailed discussion with the patient regarding goals of care. He is currently DNR/DNI. I have informed patient that he will need to make a decision before discharge regarding goals of care. If he wants aggressive therapy, he will be a candidate for LifeVest and possible ICD placement. He says he will think about these issues and let us know. Thank you for involving us with care of this patient. We will continue to follow. Please call with question Attestations Medical Necessity Statement*: Care expected to cross 2 midnights. Coding Level of Care Code Acute Fermentation Scientist for [facility] Diagnoses Cardiogenic shock R57.0 New onset atrial fibrillation I48.91 Acute exacerbation of CHF (congestive heart failure) I50.9 Pulmonary embolism I26.99 Coronary artery disease I25.10
[2020-07-26] MEDS: DOBUTamine drip 500 MG/250 ML PREMIX 5.5 MG IV (15:14)
--- NOTE | 2020-07-26 15:22 | PC.NURSE ---
dobutamine due at 12:34 given late due to previous bag still running.
--- NOTE | 2020-07-26 16:02 | PC.NURSE ---
SHIFT SUMMARY PT RESTING IN BED WITH MOTHER AT BEDSIDE WATCHING TV. PT REQUESTING FOR INCREASE IN FLUID RESTRICTION. PT EDUCATED BY THIS NURSE OF THE IMPORTANCE OF THE FLUID RESTRICTION. PT HAS NO COMPLAINTS OF PAIN, DIMINISHED BREATH SOUNDS ON ROOM AIR, DENIES SHORTNESS OF BREATH, DENIES CHEST PAIN, REPORTS NO TROUBLE URINATING AND LAST BOWEL MOVEMENT YESTERDAY-05/24. DOBUTAMINE DRIP DECREASED BY HALF PER PHYSICIAN'S ORDERS- DRIP RUNNING AT 2.5MCG/KG. PT TOLERATING WELL, V/S STABLE AT THIS TIME. PT RECEIVED A LINEN CHANGE AND GAVE SELF A SPONGE BATH PER PT REQUEST. PT STATES HE IS FEELING BETTER TODAY THAN YESTERDAY AND IS LOOKING FORWARD TO WHEN HIS FLUID RESTRICTION IS ABLE TO BE INCREASED. WILL CONTINUE TO MONITOR.
[2020-07-26] MEDS: atorvastatin 40 mg Tablet PO (20:02)
--- NOTE | 2020-07-26 20:27 | PC.NURSE ---
Patient found resting in bed. Assessment done, and RN found right wrist/arm warmer to touch, and a little red in color compared to rest of skin. Patient stated that it felt better compared to yesterday after previous RN had removed BP cuff from arm. No pain reported. RN discussed fluid restriction and spoke in-depth on the need to adhere to fluid restriction and plan. Pt stated he understood, but still wants more to drink. RN attempting to give pt 50mL in ice chips in attempts to abide by current fluid restriction. No other verbalized needs at this time. Pt resting comfortably watching TV in pleasant mood.
[2020-07-27] VITALS (33 sets, daily range): BP systolic 104–161; BP diastolic 70–135; PULSE 65–105; RESP 1–32; TEMP 36.6–37.1; O2SAT 95–100
[2020-07-27 03:56] LABS: Albumin Level 3.7 g/dL (3.5-5.2); Alkaline Phosphatase 104 IU/L (40-130); Carbon Dioxide 27 mmol/L (22-29); Chloride 99 mmol/L (98-107); Globulin 3.6 g/dL (1.3-4.6); Glucose 110 mg/dL (65-115); Total Bilirubin 0.6 mg/dL (0.15-1.2); Total Protein 7.3 g/dL (6.6-8.7)
[2020-07-27] MEDS: famotidine 20 mg/2 mL INJ IVP ×2 (03:56→14:48)
[2020-07-27 03:57] LABS: Basophils # 0.1 10^3/uL (0.0-0.1); Eosinophils # 0.5 10^3/uL (0.0-0.8); Eosinophils % 4.1 %; Hemoglobin 15.9 g/dL (11.7-16.6); Lymphocytes % 17.6 %; Mean Corpuscular HGB Conc 32.4 g/dL (30.0-36.0); Mean Corpuscular Hemoglobin 29.2 pg (28.0-34.0); Mean Corpuscular Volume 89.9 fL (80-94); Mean Platelet Volume 10.4 fL (7.4-10.4); Monocytes # 1.2 10^3/uL (0.2-0.9); Monocytes % 10.4 %; Neutrophils % 66.5 %; Nucleated Red Blood Cells % 0 %; Platelet Count 266 10^3/cmm (130-400); Red Blood Count 5.45 10^6/uL (4.1-5.3); Red Cell Distribution Width 13.3 % (12.1-15.1); White Blood Count 11.3 10^3/uL (4.0-10.0)
[2020-07-27 06:11] LABS: Sodium 138 mmol/L (136-145)
[2020-07-27] MEDS: sucralfate 1 gm Tablet PO ×2 (06:24→10:48)
[2020-07-27] MEDS: aspirin 81 mg EC Tablet PO (06:24)
[2020-07-27] MEDS: clopidogrel 75 mg Tablet PO (06:25)
[2020-07-27 06:46] LABS: Alanine Aminotransferase 47 U/L (0-41); Anion Gap 15.9 (5-19); Aspartate Amino Transferase 29 U/L (0-40); Blood Urea Nitrogen 30 mg/dL (8-23); Osmolality Calculated 293 mOsm/kg (285-295); Potassium 3.9 mmol/L (3.5-5.1)
[2020-07-27] MEDS: phenazopyridine 100 mg Tablet PO ×2 (07:51→11:03)
[2020-07-27] MEDS: FUROsemide 10 mg/mL SDV 4mL 40 MG IVP (07:58)
[2020-07-27] MEDS: sertraline 50 mg Tablet 25 MG PO (08:04)
[2020-07-27] MEDS: apixaban 5 mg Tablet 10 MG PO (08:04)
[2020-07-27] MEDS: potassium chloride ER 10 mEq Tablet PO (08:04)
--- NOTE | 2020-07-27 09:16 | PC.CHAP ---
Pastoral Care Encounter/Spiritual Assessment Type of Contact [] Declined fitness/wellness director visit [] Patient/Family/Request visit [] Outpatient visit [] Follow-up visit [] Physician referral [] Code/Alert [x] Routine visit [] Staff referral [] Actively dying [] Patient sleeping [] Family support [] [] Out of room [] Palliative care [] [] Receiving care in room [] Pre-surgical visit [] Trauma [] Long length of stay [x] ICU visit [] Other: Relational/Emotional Strength [] Patient feels connected with others/family/visitors/staff [] Distress [] Loneliness/isolation [] Abandonment Spirituality of Patient [] Person of Marii [] Attends Shinto of their Marii [] Believes in Prayer [] Reads Bible or Anabaptism materials [] There are Spiritual issues to be addressed Hand Ii Tube Bender Interventions [x] Prayer [] Active listening [] Non-anxious presence [] Spiritual/emotional support [] Crisis/trauma care [] Spiritual counseling [] Bereavement support [] Provided bereavement packet [] Provided Bible/devotional materials [] Provided toy/stuffed animal, coloring book to patient or family member [] Provided Communion [] Anointing/[place] [] Salvation [x] Completed spiritual assessment [] Other: Impact on Illness or Injury [] Angry [] Fearful [] Anxious [] Often cries [] Exhaustion [] Unable to work [] Unable to attend rastafari [] Unable to walk/stand [] Unable to read [] Unable to drive [] Unable to eat/drink [] Unable to sleep [] Unable to be with family [] Patient intubated [] Other: Summary fitness/wellness director noted patient on cell phone.. setting up in bed Time spent with patient
--- NOTE | 2020-07-27 09:38 | PM.PN ---
Subjective Subjective: Interval history: Patient is overall doing well. Denies any complaints of chest pain, shortness of breath or palpitations. He wants to go home today and does not want to stay in the hospital anymore. His blood pressure is stable without pressor support. He has been weaned off of dobutamine. Vitals/I&O/Wt Last Vital Signs Temp 97.9 F 07/27/20 04:00 Pulse 97 07/27/20 09:30 Resp 15 07/27/20 09:30 BP 132/97 07/27/20 08:00 Pulse Ox 98 07/27/20 06:30 07/26/20 07/27/20 07/27/20 22:59 06:59 14:59 Intake Total 654.383 / 1814.348 150 / 1964.348 240 / 240 Output Total 800 / 1575 750 / 2325 Balance -145.617 / 239.348 -600 / -360.652 240 / 240 Weight last 48 hrs Weight 156 lb 6.4 oz Weight 157 lb 3 oz Physical Exam Narrative: EXAM NARRATIVE: GENERAL: Patient is alert, awake and oriented x3. [] NECK: No jugular vein distension. [] HEENT: No cyanosis. No icterus. No pallor. [] HEART: Regular S1 and S2. No murmur, rub or gallop. [] LUNGS: Clear to auscultate bilaterally. [] ABDOMEN: Soft, nontender and nondistended. Positive bowel sounds. No guarding, rebound or tenderness. [] CENTRAL NERVOUS SYSTEM: Grossly nonfocal. [] EXTREMITIES: Lower extremities with no edema bilaterally. Pulses palpable in the lower extremities, both dorsalis pedis and posterior tibial. [] Urinary Catheter Management^: Sánchez: Cath Placed During This Visit: yes Reason for Continuing Indwelling Catheter: Accurate Measurement of Urinary Output in Critically Ill Patients Urinary Catheter Date of Insertion: 07/22/20 Urinary Catheter Time of Insertion: 17:44 Data : 07/27/20 03:04 07/27/20 03:04 A&P Assessment and plan (1) Cardiogenic shock: (2) New onset atrial fibrillation: (3) Acute exacerbation of CHF (congestive heart failure): (4) Pulmonary embolism: (5) Coronary artery disease: Patient underwent right and left heart cath that revealed no obstructive coronary artery disease, elevated right and left sided cardiac pressures and reduced cardiac index even on dobutamine. His LV EF has dropped significantly compared with last year and is 10-15% now. Non-ischemic cardiomyopathy. Off Levophed and dobutamine. Patient wants to go home today. He is stable and can be discharged today. Restart Coreg 3.125 mg twice daily and start lisinopril 2.5 mg daily. Switch IV Lasix to furosemide 60 mg twice daily p.o. Continue Eliquis. Aspirin can be stopped and patient can be discharged on Eliquis and Plavix. Patient has decided he wants to proceed with LifeVest and ICD placement. We will arrange for LifeVest. He will need a repeat echocardiogram in 3 months to assess LV systolic function. If it stays less than 35%, then he will need ICD placement. We will also need to discussion regarding advanced heart failure therapies if he wants aggressive measures including cardiac transplantation and LVAD. Thank you for involving us with care of this patient. We will continue to follow. Please call with question Attestations Medical Necessity Statement*: Care expected to cross 2 midnights. Coding Level of Care Code Acute Ticket Sales Supervisor for [facility] Diagnoses Cardiogenic shock R57.0 New onset atrial fibrillation I48.91 Acute exacerbation of CHF (congestive heart failure) I50.9 Pulmonary embolism I26.99 Coronary artery disease I25.10
[2020-07-27] MEDS: cefTRIAXone 1,000 MG in sodium chloride 0.9% (plus) 50 ML 100 MG IV (10:17)
--- NOTE | 2020-07-27 11:03 | P.DS_ITS ---
Discharge Providers Date of Admission: 07/22/20 08:34 Date of Discharge: July 27, 2020 Attending Provider at Admission: Fletcher Moore MD Attending Provider at Discharge: Chico Larose Primary Care Provider: Lorraine Torres DO Diagnoses at Discharge Discharge Diagnosis (1) Cardiogenic shock: Status: Acute (2) New onset atrial fibrillation: Status: Acute (3) Acute exacerbation of CHF (congestive heart failure): Status: Acute Permanent problem details: (4) Pulmonary embolism: Status: Acute (5) Coronary artery disease: Status: Acute Permanent problem details: LAD stent placed 2019 Other Information Additional DC diagnoses/information: BUDDY resolved Reason for Visit Reason for Visit: SOB W/CP Hospital Course Hospital Course Very pleasant 59-year-old gentleman with history of CAD, History of PCI to LAD in October 2019, ischemic cardiomyopathy with history of EF 30% in the past, discontinued taking his medications for about a month feeling that the medications were making him nauseated, weak, drowsy, with noted borderline blood pressures, possibly the cause of his symptoms, on 07/21 was having difficulty breathing, orthopnea, PND. On assessment on presentation, including CTA was found to have small filling defect in peripheral subsegmental branch of right lower lobe pulmonary artery suspicious for pulmonary embolism. Noted severe cardiomegaly. Also noted extensive centrilobular and subpleural emphysema. No consolidative changes. With noted acute CHF exacerbation, with also inters titial edema on chest x-ray on presentation. Additional follow-up with echocardiogram revealed ejection fraction of 10-15%, severely reduced RV function. Biatrial enlargement. Moderate MR. Mild TR. Moderate pulmonary hypertension. Abdominal ultrasound assessed due to nausea, abdominal discomfort, with finding of 1 mm nonobstructing bilateral renal calculi. Unremarkable hepatobiliary exam, no abnormality seen in proximal pancreas. Stool was negative for Hemoccult blood. Noted lactic acid elevation of presentation likely secondary to cardiogenic shock. No acute infection noted on work-up. He underwent additional treatment with dobutamine drip and Levophed drip to maintain mean arterial pressures above 65 mmHg. Transient acute kidney injury noted in the hospital with creatinine up to 1.5 which resolved with improvement in blood pressures. His antihypertensives including lisinopril and carvedilol were held. Lisinopril on discharge is resumed at low-dose . Bat the same time he is requested to discontinue naproxen. NSAIDs should be avoided if possible. Blood pressure eventually stabilized. He was resumed on gentle diuresis with Lasix 40 mg twice daily. He weaned off Levophed. He abdomen right decreased yesterday, and is discontinued today prior to discharge. He underwent additional assessment with coronary angiogram which revealed patent stent, without new blockages noted coronary arteries. Noted elevated cardiac pressures consistent with heart failure and cardiogenic shock. Due to possible UTI he received treatment with ceftriaxone while in the hospital, however, without growth on urine culture, without urinary symptoms, on discharge this is discontinued. He reports he is feeling much better. Here request to return home. We discussed extensively the severity of his congestive heart failure. Discussed risks of additional comorbidities, including arrhythmia. Per his discussion with cardiology he is interested in setting up of LifeVest which is b eing set up for him prior to discharge, and he will follow-up for reassessment in office, with future discussions also including possible ICD, possible referral for cardiac transplantation both of which were reviewed discussed with him. He is cleared for discharge by cardiology. Due to PE, as well as noted new atrial fibrillation while in the hospital he continues on Eliquis. He continues on Plavix due to history of coronary disease and stenting. Aspirin is discontinued per recommendations. He will continue on Lasix 60 mg twice daily. Physical Exam Const: COMMON NORMALS: no acute distress, patient oriented x3 and alert ORIENTATION/CONSCIOUSNESS: Yes awake HENMT: COMMON NORMALS: oropharynx normal Neck/C-Spine: COMMON NORMALS: no JVD Resp: COMMON NORMALS: normal respiratory effort and clear to auscultation bilaterally AUSCULTATION: clear to auscultation bilaterally Cardio: COMMON NORMALS: no JVD and regular rhythm RHYTHM: regular rhythm GI: COMMON NORMALS: Normal to inspection, nondistended, normoactive bowel sounds present, Soft to palpation and non-tender PALPATION: Yes Soft to palpation Extremity: COMMON NORMALS: no joint enlargement and no pedal edema Neuro: COMMON NORMALS: patient oriented x3 and moves all extremities SENSORIUM/ORIENTATION: Yes alert Skin: COMMON NORMALS: no rashes or lesions noted GENERAL SKIN EXAM: no rashes or lesions noted Urinary Catheter Management^: Sánchez: Cath Placed During This Visit: yes Reason for Continuing Indwelling Catheter: Accurate Measurement of Urinary Output in Critically Ill Patients Urinary Catheter Date of Insertion: 07/22/20 Urinary Catheter Time of Insertion: 17:44 Discharge Data Data Completed and Pending: Completed Studies During Hospitalization Category Date Time Status CT angio chest PE protcl [id number] Stat Cat Scan 07/21/20 18:30 Completed XR acute abdomen series [id number] Routi ne Exams 07/22/20 14:54 Completed XR chest 1V ajit ble [id number] Stat Exams 07/21/20 15:54 Completed CV echo complete* [id number] Routine Ultrasound 07/22/20 21:09 [place] [id number] Routin e Ultrasound 07/22/20 22:05 Completed US abdomen comple te* [id number] Routine Ultrasound 07/23/20 05:00 Completed Pending at discharge Category Date Time Status [employer] request for service Routin e Exams 07/24/20 07:10 Taken Blood Culture Sta t Lab 07/23/20 11:06 Results Complete Blood Co unt w/Auto AM LABS Lab 07/28/20 04:00 Ordered Comprehensive Met abolic Panel AM LA BS Lab 07/28/20 04:00 Ordered Labs from last 24 hours 07/27/20 07/27/20 03:04 03:04 WBC 11.3 H RBC 5.45 H Hgb 15.9 Hct 49.0 MCV 89.9 MCH 29.2 MCHC 32.4 RDW 13.3 Plt Count 266 MPV 10.4 Neut % (Auto) 66.5 Lymph % (Auto) 17.6 [place] % (Auto) 10.4 Eos % (Auto) 4.1 Baso % (Auto) 1.0 Neut # (Auto) 7.50 Lymph # (Auto) 2.0 [place] # (Auto) 1.2 H Eos # (Auto) 0.5 Baso # (Auto) 0.1 Nucleated RBC % (a uto) 0 Nucleated RBCs # 0.0 Sodium 138 Potassium 3.9 Chloride 99 Carbon Dioxide 27 Anion Gap 15.9 BUN 30 H Creatinine 1.0 GFR Calculation TNP Glucose 110 Calculated Osmolal ity 293 Calcium 9.0 Total Bilirubin 0.6 AST 29 ALT 47 H Alkaline Phosphata se 104 Total Protein 7.3 Albumin 3.7 Globulin 3.6 Vitals: Last Vital Signs Temp 97.9 F 07/27/20 04:00 Pulse 72 07/27/20 10:00 Resp 11 L 07/27/20 10:00 BP 124/87 02/03/21 10:00 Pulse Ox 98 07/27/20 06:30 Discharge Plan Discharge Patient Disposition: Home Condition: Stable Prescriptions: New [place] DVT-PE Treat 30D Start 5 mg (74 tabs) tablets,dose pack See Rx Instructions .ROUTE .COMPLEX Qty: 74 RF: 0 lisinopril 2.5 mg tablet 2.5 mg PO DAILY Qty: 30 RF: 0 Continued potassium chloride 10 mEq capsule, extended release 10 meq PO DAILY Qty: 60 RF: 4 atorvastatin 40 mg tablet 40 mg PO BEDTIME Qty: 90 RF: 3 clopidogrel 75 mg tablet 75 mg PO DAILY@0600 RF: 0 carvedilol 3.125 mg tablet 3.125 mg PO BID RF: 0 nitroglycerin 0.4 mg tablet, sublingual 0.4 mg sublingual PRN PRN (Reason: chest pains) RF: 0 sertraline 25 mg tablet 25 mg PO DAILY RF: 0 Changed furosemide 40 mg tablet 60 mg PO BID Qty: 0 RF: 0 Discontinued naproxen sodium [Flanax (naproxen)] 220 mg tablet 440 mg PO Q8H RF: 0 Adult Aspirin Regimen 81 mg tablet,delayed release (DR/EC) 81 mg PO DAILY@0600 RF: 0 spironolactone 25 mg tablet 25 mg PO DAILY RF: 0 lisinopril 10 mg tablet 10 mg PO DAILY RF: 0 Discharge Orders: Discharge Order (Routine); Ordered 07/27/20 Ordered By: Chico Larose Referrals: Quinn Lizarraga M.D [Physician] - (7-10 days) Lorraine Torres DO [Primary Care Provider] - 4-7 days Discharge Diet: Cardiac Discharge Activity: Increase activity as tolerated Patient Instructions: Naproxen (By mouth), Clopidogrel (By mouth), Apixaban (By mouth), Congestive Heart Failure, Heart Failure (GEN), Atrial Fibrillation (GEN), Left Heart Catheterization (DC), Pulmonary Embolism (GEN) Activity Restrictions/Additional Instructions: Please wear your LifeVest as instructed. Please follow-up with cardiology in office in 7-10 days. Please have your primary care doctor check blood chemistry (BMP) in 1 week to follow-up renal function and potassium. Please discontinue ibuprofen. Please avoid any other similar medications (NSAIDs). These may sometimes lead to cardiac complications, including high risk of heart attack and stroke in addition to other risks. Discharge Attestations Time Spent in Discharge Care*: greater than 30 min Quality Metrics Clinical Quality Measures During this hospital stay, did patient experience: None Coding Level of Care Code Acute Occupational Health Rn for Chg Fwd Diagnoses Cardiogenic shock R57.0 New onset atrial fibrillation I48.91 Acute exacerbation of CHF (congestive heart failure) I50.9 Pulmonary embolism I26.99 Coronary artery disease I25.10
--- NOTE | 2020-07-27 16:58 | PC.NURSE ---
life vest unable to fit patient today. and I discussed with pt that he can still go home and life vest will fit tomorrow, but only if he understands and accepts the risks. Pt agreed, requested to go home without it at this time. Now waiting for patient ride to arrive to take him home. Meds sent to [facility], received by family member.
== END 2020-07-27 17:45 | disposition home or self-care (01) | DRG 286 ==
LOC: ER 20:28 → CSU 07-22 05:33 → ICU 07-22 18:00
PROVIDERS: Internal Medicine; Student in an Organized Health Care Education/Training Program; Admitting Provider Internal Medicine; Emergency Provider Family Medicine; PCP Family Medicine; Visit Provider Internal Medicine
PROC: 4A023N8 Measurement of Cardiac Sampling and Pressure, Bilateral, Percutaneous Approach (ICD-10-PCS; principal; 2020-07-24 08:00)
DX: I11.0 Hypertensive heart disease with heart failure (principal); I26.99 Other pulmonary embolism without acute cor pulmonale; R57.0 Cardiogenic shock; N17.9 Acute kidney failure, unspecified; N39.0 Urinary tract infection, site not specified; I50.33 Acute on chronic diastolic (congestive) heart failure; I25.10 Atherosclerotic heart disease of native coronary artery without angina pectoris; I25.2 Old myocardial infarction; I25.5 Ischemic cardiomyopathy; I69.998 Other sequelae following unspecified cerebrovascular disease; H53.47 Heteronymous bilateral field defects; I48.91 Unspecified atrial fibrillation; F17.210 Nicotine dependence, cigarettes, uncomplicated; F10.21 Alcohol dependence, in remission; Z66 Do not resuscitate; Z91.128 Patient's intentional underdosing of medication regimen for other reason; I08.1 Rheumatic disorders of both mitral and tricuspid valves; I27.20 Pulmonary hypertension, unspecified; Z79.02 Long term (current) use of antithrombotics/antiplatelets; N20.0 Calculus of kidney; J43.2 Centrilobular emphysema; I42.8 Other cardiomyopathies
CPT/HCPCS: 12345; 36415; 36416; 51702; 71045; 71275; 74022; 76700; 80048; 80053; 80061; 80306; 81001; 82274; 82962; 83036; 83605; 83630; 83735; 83880; 84100; 84145; 84443; 84484; 85025; 85378; 87040; 87086; 87493; 87506; 93005; 93306; 93453; 93970; 94664; 96372; 99283; C1751; C1769; C1887; C1894; G0378; J0696; J1250; J1644; J1650; J1815; J1940; J2250; J2405; J3010; J3475; J3490; J7030; Q0163; Q9967

== ENCOUNTER → 2020-08-03 14:00 | Outpatient (BNVA) | payer MEDICAID, SELFPAY | PROVIDERS: PCP Family Medicine; Visit Provider Internal Medicine Cardiovascular Disease | DX: I42.9 Cardiomyopathy, unspecified (principal); I25.10 Atherosclerotic heart disease of native coronary artery without angina pectoris; I10 Essential (primary) hypertension; I48.91 Unspecified atrial fibrillation | CPT/HCPCS: 80048; 83735; 83880 ==